=== PATIENT | male | born 1935 | race Caucasian/White ===

== ENCOUNTER 2018-11-04 15:50 | Inpatient (IN) ==
--- OUTSIDE RECORDS SUMMARY | 2018-11-04 15:53 | External Medical Summary | Continuity of Care Document ---
:1935 Author Name Gonzales Deleon Address Unavailable Unavailable , Care Team Providers Name Role Phone Anthony Deleon I. 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 Start: 27-Dec-2014 Quantity: 90 Refills: 3 Metoprolol Succinate ER 50 MG Oral Table t Extended Release 24 Hour; Take 1 tablet daily Start: 27-Dec-2014 Quantity: 90 Refills: 3 Diclofenac Sodium 75 MG Oral Tablet Irma yed Release; TAKE 1 TABLET Daily PRN with food Start: 27-Dec-2014 Refills: 0 ALPRAZolam 0.25 MG Oral Tablet; TAKE 1 TABLET 3 TIMES DAILY NEEDED. Start: 27-Dec-2014 Quantity: 90 Refills: 0 Aspirin 81 MG TABS; TAKE 1 TABLET DAILY. Start: 27-Dec-2014 Refills: 0 PreserVision AREDS Oral Capsule Start: 17-Dec-2014 Refills: 0 Multi-Vitamin TABS Refills: 0 Lotrimin 1 % CREA Refills: 0 Vitamin B6 TABS Refills: 0 Vitamin E TABS Refills: 0 TH Vitamin B12 TABS Refills: 0 Vitamin C TABS Refills: 0 Antacid CHEW Refills: 0 Mometasone Furoate 0.1 % External Cream Refills: 0 MiraLax Oral Powder Refills: 0 Senna 8.6 MG Oral Tablet Refills: 0 Pantoprazole Sodium 40 MG Oral Tablet Delayed Release Refills: 0 Procedures History of Colonoscopy (Fiberoptic) Stat us: Completed Immunizations Immunizations not documented Family History Mother Family history of CAD (coronary artery disease) (414.0 0) (I25.10) Status: Active Family history of arthritis (V17.7) (Z82.61) Status: Active Family history of cerebrovascular accident (V17.1) (Z82.3) S tatus: Active Father Family history of CAD (coronary artery disease) (414.0 0) (I25.10) Status: Active Sister Family history of arthritis (V17.7) (Z82.61) Status: Active Brother Family history of arthritis (V17.7) (Z82.61) Status: Active Social History - Smoking Status Former smoker Interventions Follow-ups/ReferralsFollow-up visit in 6 months; Done: 19 Oct 2015 Plan of Treatment Planned Observations Planned Goals not documented Results No Known Results Results not documented Encounters Appointment; Galindo Cruz M.D. 19-Oct-2015 12:45 Encounter Diagnosis: Problem not documented
[2018-11-04] MEDS ORDERED: SODIUM CHLORIDE 0.9% 500 ML IV SCH (16:30)
[2018-11-04 16:45] LABS: Basophils # (auto) 0.03 K/uL (0-0.2); Basophils % (auto) 0.4 %; Eosinophils # (auto) 0.51 K/uL (0-0.5); Eosinophils % (auto) 6.9 %; Hematocrit (blood only) 34.6 % (42-52); Hemoglobin 11.4 g/dL (14.0-18.0); Immature Granulocytes # (auto) 0.02 K/uL (0.00-0.02); Immature Granulocytes % (auto) 0.3 %; Lymphocytes # (auto) 0.93 K/uL (1.2-3.4); Lymphocytes % (auto) 12.5 %; Mean Corpuscular Hgb Conc 32.9 g/dL (32-36); Mean Corpuscular Volume 96.9 fL (80-100); Mean Platelet Volume 10.9 fL (7.4-10.4); Monocytes # (auto) 0.84 K/uL (0.11-0.59); Monocytes % (auto) 11.3 %; Neutrophils % (auto) 68.6 %; Platelet Count 216 K/uL (130-400); RDW Coefficient of Variation 13.5 % (11.5-14.5); RDW Standard Deviation 47.3 fL (36.4-46.3); Red Blood Count 3.57 M/uL (4.7-6.1); White Blood Count 7.43 K/uL (4.8-10.8)
--- NOTE | 2018-11-04 16:45 | XRay Report ---
XR chest 1V portable CLINICAL HISTORY: 83 years-old Male presenting with Chest Pain. TECHNIQUE: Portable upright AP view of the chest was obtained. COMPARISON: None. FINDINGS: Atherosclerosis of the aortic arch. Cardiac silhouette enlarged. Mild central pulmonary vascular prom inence. Elevation of the right hemidiaphragm. Mildly low lung volumes. No focal opacity. No large eff usion or pneumothorax. Degenerative changes of the thoracic spine. Osteopenia may be present. Upper a bdomen normal. IMPRESSION: 1. Cardiomegaly. No alexander volume overload or pulmonary edema. 2. Hilar vascular prominence versus, less likely, underlying lymphadenopathy. 3. Mildly low lung volumes with hypoventilatory changes. Electronically signed by: Cameron Navarro M.D. 11/04/2018 4:43 PM
--- NOTE | 2018-11-04 17:32 | Emergency Department Note ---
Entered by Ab Love acting as a scribe for Corbin Green MD History of Present Illness General Chief complaint: Weakness Stated complaint: MENTAL STATUS CHANGE Time Seen by Provider: 11/04/18 16:28 Source: family () History of Present Illness Onset (ago): day(s) 1 Location: head (confusion) Severity: severe and similar to prior episodes (prior UTI) Pain Consistency: + other (worsening) Associated symptoms: + weakness and + other (delusions, abdominal bloating) The patient is a 83 year old M who presents to the Emergency Room with complaints of worsening confusion that occurred 1 day ago. The HPI was provided by the patients . She states that the patient has a history of Parkinsons disease. She notes that recently the patient was diagnosed with a UTI by the patients PCP and was started on an antibiotic. She states that while the patient was on his antibiotic treatment, a urine test was done which was negative. She adds that the patient finished his course of antibiotics yesterday. She states that the patient is currently experiencing delusions, abdominal bloating, and weakness, which started a week ago. She adds that due to the patients Parkinsons disease, the patient normally uses a walker for movement. She states that the patient cannot walk on his own anymore. She notes that these symptoms usually occur when the patient has a UTI. She states that the patient has a neurologist back in [place]. She denies that the patient experienced any recent falls. Home Medications Home Medications Medication Instructions Recorded Confirmed Type alprazolam 0.25 mg PO TID 11/04/18 11/04/18 History amantadine HCl 100 mg PO BID 11/04/18 11/04/18 History amlodipine 10 mg PO QAM 11/04/18 11/04/18 History carbidopa-levodopa 1 tab PO BID 11/04/18 11/04/18 History carbidopa-levodopa 1 tab PO TID 11/04/18 11/04/18 History losartan 50 mg PO QAM 11/04/18 11/04/18 History Allergies Allergy/AdvReac Type Severity Reaction Status Date / Time No Known Allergies Allergy Unverified 11/04/18 17:15 Past Med/Surg History Medical History Parkinson's disease (Chronic) Macular degeneration (Chronic) Anxiety Arthritis HTN (hypertension) Family History Other No significant family history Social History Communication Ability: Impaired Consulting Senior Practice Director Required: No Beliefs That Will Affect Care: Catholic Catholic Beliefs: Buddhist Current Living Situation: Alone Other Information That Helps Us Care for You: No Feels Safe at Home: Yes Smoking Status: Former smoker Do You Dip or Chew Tobacco: No Smoking End Date: quit in 1960 Hx Alcohol Use: No Hx Substance Use: No Review of Systems See HPI for pertinent positives & negatives. and A total of 10 systems reviewed and were otherwise negative Physical Exam Vital Signs Vital Signs - 24 hr 11/04/18 15:55 11/04/18 17:36 Temperature 36.4 C L Temperature Source Oral Sepsis Recent Fever Within 48 Hours No Sepsis New/Unexplained Change in Mental Status No Sepsis Action Taken by Nursing No Action Required Pulse Rate 62 Pulse Rate [Right Finger] 64 Pulse Rhythm Regular Pulse Strength Normal Respiratory Rate 22 18 Respiratory Effort / Characteristics Non-Labored Respiratory Depth Normal Respiratory Pattern Regular Blood Pressure 154/59 H Blood Pressure [Left Arm] 164/71 H Blood Pressure Mean 90 Blood Pressure Mean [Left Arm] 102 Blood Pressure Position Lying Pulse Oximetry 94 98 Oxygen Delivery Method Room Air GENERAL: Awake, alert, chronically ill appearing HENT: Normocephalic, atraumatic. TM's normal. Oropharynx with dry mucous membranes and otherwise unremarkable. EYES: PERRL. EOMI. Normal conjunctiva. Sclera non-icteric. NECK: Supple. No nuchal rigidity. FROM. No JVD or bruit. RESPIRATORY: CTAB CARDIAC: RRR. ABDOMEN: Soft, non distended. No tenderness to palpation. No rebound or guarding. No masses. RECTAL: Deferred. MUSCULOSKELETAL: Unremarkable. No edema. No discoloration. Gross motor strength symmetric. NEURO: Normal sensorium. No sensory or motor deficits noted. Masked facies, slow motor movement but symmetric consistent with Parkinsons disease. SKIN: No rash or jaundice noted. LYMPH: No adenopathy Course 1643: The patient was evaluated in room B11B. A complete history and physical exam was performed. 1902: I talked with the patients . She is not aware of any prior history of prior kidney impairment. 1908: I reviewed the patient's case with Dr. James Giang, [facility] Hospitalist. He will evaluate the patient for further management. Consultations Consultation #1: I reviewed the patient's case with Dr. James Giang, [facility] Hospitalist. He will evaluate the patient for further management. Time: 19:09 Administered Medications Alprazolam (Xanax) 0.25 mg PO TID OSIEL Stop: 12/04/18 21:17 Last Admin: 11/04/18 21:58 Dose: 0.25 mg Documented by: [id number] Amantadine HCl (Symmetrel) 100 mg PO BID OSIEL Stop: 12/04/18 21:59 Last Admin: 11/04/18 22:08 Dose: 100 mg Documented by: [id number] Carbidopa/Levodopa (Sinement Cr 25/100mg) 1 tab PO HS OSIEL Stop: 12/04/18 22:29 Last Admin: 11/04/18 22:31 Dose: Not Given Documented by: [id number] Docusate Sodium (Colace) 100 mg PO BID OSIEL Stop: 12/04/18 21:17 Last Admin: 11/04/18 21:59 Dose: 100 mg Documented by: [id number] Heparin Sodium (Porcine) (Heparin Sodium (Porcine)) 5,000 units SQ Q12 OSIEL Stop: 12/04/18 21:59 Last Admin: 11/04/18 22:00 Dose: 5,000 units Documented by: [id number] Cosigned by: [id number] Polyethylene Glycol (Miralax Powder Packet) 17 gm PO DAILY OSIEL Stop: 12/04/18 21:17 Last Admin: 11/04/18 21:57 Dose: 17 gm Documented by: [id number] Discontinued Medications Carbidopa/Levodopa (Sinement Cr 25/100mg) 1 tab PO BID OSIEL Stop: 12/04/18 21:17 Last Admin: 11/04/18 21:59 Dose: 1 tab Documented by: [id number] Carbidopa/Levodopa (Sinemet 25/100 Mg) 1 tab PO TID OSIEL Stop: 12/04/18 21:17 Last Admin: 11/04/18 23:44 Dose: Not Given Documented by: [id number] Sodium Chloride (Nss) 500 mls @ 999 mls/hr IV .Q31M OSIEL Stop: 11/04/18 17:00 Last Infusion: 11/04/18 17:10 Dose: 0 mls/hr Documented by: [id number] Admin: 11/04/18 16:38 Dose: 999 mls/hr Documented by: [id number] Sodium Chloride (Nss) 500 mls @ 125 mls/hr IV .Q4H STA Stop: 11/04/18 23:49 Last Admin: 11/04/18 21:22 Dose: 125 mls/hr Documented by: [id number] Medical Decision Making Differential Diagnosis Differential diagnosis includes: metabolic, infection, hypo/hyperglycemia, electrolyte abnormalities, cardiac sources, intracerebral event, toxicologic, neurologic, as well as others were entertained. Medical Records Attestation: I reviewed the patient's medical records. Home Medications Current Medication List: was personally reviewed by me Laboratory Data Attestation: I reviewed the patient's lab results. Result diagrams: 11/04/18 16:33 11/04/18 17:11 Lab Results 11/04/18 11/04/18 11/04/18 Range/Units 16:33 17:11 17:11 WBC 7.43 (4.8-10.8) K/uL RBC 3.57 L (4.7-6.1) M/uL Hgb 11.4 L (14.0-18.0) g/dL Hct 34.6 L (42-52) % MCV 96.9 (80-100) fL MCH 31.9 (25-34) pg MCHC 32.9 (32-36) g/dL RDW Std Deviation 47.3 H (36.4-46.3) fL RDW Coeff of Alo 13.5 (11.5-14.5) % Plt Count 216 (130-400) K/uL MPV 10.9 H (7.4-10.4) fL Immature Gran % (Auto) 0.3 % Neut % (Auto) 68.6 % Lymph % (Auto) 12.5 % Harris % (Auto) 11.3 % Eos % (Auto) 6.9 % Baso % (Auto) 0.4 % Immature Gran # (Auto) 0.02 (0.00-0.02) K/uL Neut # (Auto) 5.10 (1.4-6.5) K/uL Lymph # (Auto) 0.93 L (1.2-3.4) K/uL Harris # (Auto) 0.84 H (0.11-0.59) K/uL Eos # (Auto) 0.51 H (0-0.5) K/uL Baso # (Auto) 0.03 (0-0.2) K/uL PT 10.9 (9.0-12.0) Seconds INR 1.1 (0.9-1.1) Sodium 140 (136-145) mmol/L Potassium 4.5 (3.5-5.1) mmol/L Chloride 108 H (98-107) mmol/L Carbon Dioxide 25 (21-32) mmol/L Anion Gap 7.0 (3-11) BUN 27 H (7-18) mg/dl Creatinine 1.88 H (0.6-1.4) mg/dl Est Cr Clr Drug Dosing 29.2 ml/min Est GFR ( Amer) 37.2 Est GFR (Non-Af Amer) 32.1 BUN/Creatinine Ratio 14.4 (10-20) Glucose 98 (70-99) mg/dl Calcium 9.3 (8.5-10.1) mg/dl Phosphorus 2.9 (2.5-4.9) mg/dl Magnesium 2.4 (1.8-2.4) mg/dl Total Bilirubin 0.6 (0.2-1) mg/dl Direct Bilirubin 0.1 (0-0.2) mg/dl AST 17 (15-37) U/L ALT 12 (12-78) U/L Alkaline Phosphatase 95 (45-117) U/L Troponin I 0.017 (0-0.045) ng/ml Total Protein 8.0 (6.4-8.2) gm/dl Albumin 3.9 (3.4-5.0) gm/dl Globulin 4.1 H (2.5-4.0) gm/dl Albumin/Globulin Ratio 1.0 (0.9-2) Lipase 225 (73-393) U/L TSH 1.750 (0.300-4.500) uIu/ml Urine Color Urine Appearance (Clear) Urine pH (4.5-7.5) Ur Specific [place] (1.000-1.030) Urine Protein (Negative) Urine Glucose (UA) (Negative) Urine Ketones (Negative) Urine Blood (Negative) Urine Nitrite (Negative) Urine Bilirubin (Negative) Urine Urobilinogen (Negative) Ur Leukocyte Esterase (Negative) 11/04/18 Range/Units 17:30 WBC (4.8-10.8) K/uL RBC (4.7-6.1) M/uL Hgb (14.0-18.0) g/dL Hct (42-52) % MCV (80-100) fL MCH (25-34) pg MCHC (32-36) g/dL RDW Std Deviation (36.4-46.3) fL RDW Coeff of Alo (11.5-14.5) % Plt Count (130-400) K/uL MPV (7.4-10.4) fL Immature Gran % (Auto) % Neut % (Auto) % Lymph % (Auto) % Harris % (Auto) % Eos % (Auto) % Baso % (Auto) % Immature Gran # (Auto) (0.00-0.02) K/uL Neut # (Auto) (1.4-6.5) K/uL Lymph # (Auto) (1.2-3.4) K/uL Harris # (Auto) (0.11-0.59) K/uL Eos # (Auto) (0-0.5) K/uL Baso # (Auto) (0-0.2) K/uL PT (9.0-12.0) Seconds INR (0.9-1.1) Sodium (136-145) mmol/L Potassium (3.5-5.1) mmol/L Chloride (98-107) mmol/L Carbon Dioxide (21-32) mmol/L Anion Gap (3-11) BUN (7-18) mg/dl Creatinine (0.6-1.4) mg/dl Est Cr Clr Drug Dosing ml/min Est GFR ( Amer) Est GFR (Non-Af Amer) BUN/Creatinine Ratio (10-20) Glucose (70-99) mg/dl Calcium (8.5-10.1) mg/dl Phosphorus (2.5-4.9) mg/dl Magnesium (1.8-2.4) mg/dl Total Bilirubin (0.2-1) mg/dl Direct Bilirubin (0-0.2) mg/dl AST (15-37) U/L ALT (12-78) U/L Alkaline Phosphatase (45-117) U/L Troponin I (0-0.045) ng/ml Total Protein (6.4-8.2) gm/dl Albumin (3.4-5.0) gm/dl Globulin (2.5-4.0) gm/dl Albumin/Globulin Ratio (0.9-2) Lipase (73-393) U/L TSH (0.300-4.500) uIu/ml Urine Color Yellow Urine Appearance Clear (Clear) Urine pH 6.5 (4.5-7.5) Ur Specific [place] 1.012 (1.000-1.030) Urine Protein Negative (Negative) Urine Glucose (UA) Negative (Negative) Urine Ketones Negative (Negative) Urine Blood Negative (Negative) Urine Nitrite Negative (Negative) Urine Bilirubin Negative (Negative) Urine Urobilinogen Negative (Negative) Ur Leukocyte Esterase Negative (Negative) Imaging Data Radiologist's Impression: Radiology results as stated below per my review and the radiologist's interpretation: XR chest 1V portable CLINICAL HISTORY: 83 years-old Male presenting with Chest Pain. TECHNIQUE: Portable upright AP view of the chest was obtained. COMPARISON: None. FINDINGS: Atherosclerosis of the aortic arch. Cardiac silhouette enlarged. Mild central pulmonary vascular prominence. Elevation of the right hemidiaphragm. Mildly low lung volumes. No focal opacity. No large effusion or pneumothorax. Degenerative changes of the thoracic spine. Osteopenia may be present. Upper abdomen normal. IMPRESSION: 1. Cardiomegaly. No alexander volume overload or pulmonary edema. 2. Hilar vascular prominence versus, less likely, underlying lymphadenopathy. 3. Mildly low lung volumes with hypoventilatory changes. Electronically signed by: Cameron Navarro M.D. 11/04/2018 4:43 PM XR KUB/Abdomen 1 view CLINICAL HISTORY: 83 years-old Male presenting with weakness, abdominal distension. TECHNIQUE: Single supine view of the abdomen was obtained. COMPARISON: None. FINDINGS: Moderate stool burden throughout the colon primarily in the right colon. Nonobstructive bowel gas pattern. No gross pneumoperitoneum. Calcifications project over the right mid abdomen, indeterminate in morphology. Atherosclerotic calcifications. Few pelvic phleboliths. Degenerative changes of the spine. Osteopenia. Intramedullary nail fixation of the left femoral neck and proximal metadiaphysis. Significant posttraumatic deformity remains. IMPRESSION: 1. Moderate stool burden may suggest constipation. No bowel obstruction. 2. Significant posttraumatic deformity of the left femur status post internal fixation. Electronically signed by: Cameron Navarro M.D. 11/04/2018 5:55 PM ECG Data Attestation: I personally reviewed and interpreted this ECG as follows: Indication: weakness Rate (beats per minute): 62 Rhythm: normal sinus Findings: + other (normal axis); no acute ischemic change Blood Pressure Blood Pressure Findings: Elevated blood pressure Blood Pressure Disposition: further management by hospitalist MDM Narrative The patient is a pleasant 83-year-old gentleman with a past medical history of Parkinson's disease who presents to emergency department with generalized weakness and waxing and waning confusion in setting of recently being treated for a urinary tract infection per hpi. Family reports that his weakness has become so bad that he is unable to even stand up. His baseline status is being able to ambulate with a walker with close supervision. On arrival patient is chronically ill-appearing but no acute distress, afebrile stable vital signs. Patient appears clinically dry. He is moving all extremities equally with slow motor movements that is typical for the patient's Parkinson's. EKG without overt acute ischemia. Chest x-ray negative for focal infiltrate. KUB with evidence of constipation. WBC within normal limits. H/H 11.4/34.6 without recent values for comparison. Platelets is within normal limits. Chemistry without acidosis. Creatinine 1.8 which is similar to prior value 2 years ago however the patient's denies any known history of chronic renal insufficiency. Therefore it is presumed that this is likely an acute kidney injury likely contributing to the patient's weakness and intermittent confusion in the setting of his Parkinson disease. LFTs and electrolytes otherwise unremarkable. Troponin within normal limits. UA negative for infection. CT head negative for acute process. This was discussed with Dr. Giang, [facility] h ospitalist, who will evaluate the patient for admission further management of the patient's acute kidney injury/dehydration. Impression & Plan Acute kidney injury, Dehydration, Generalized weakness Discharge Plan Visit Data *Final* Discharge Date/Time: 11/04/18 20:45 Chief Complaint: Weakness Stated Complaint: MENTAL STATUS CHANGE ED Provider: Corbin Green Discharge Problem: Acute kidney injury, Dehydration, Generalized weakness Patient Disposition: Admitted As Inpatient Discharge Instructions Interventions: ED Discharge Assessment Last Done: 11/04/18 20:45 The scribe's documentation has been prepared under my direction and personally reviewed by me in its entirety. I confirm that the note above accurately reflects all work, treatment, procedures, and medical decision making performed by me.
[2018-11-04 17:43] LABS: INR 1.1 (0.9-1.1); Prothrombin Time 10.9 Seconds (9.0-12.0)
[2018-11-04 17:51] LABS: Albumin Level 3.9 gm/dl (3.4-5.0); BUN Creatinine Ratio 14.4 (10-20); Bilirubin Direct 0.1 mg/dl (0-0.2); Calcium 9.3 mg/dl (8.5-10.1); Creatinine Clr Calc Pharmacy 29.2 ml/min; Est GFR (African American) 37.2; Est GFR (Non-African American) 32.1; Magnesium 2.4 mg/dl (1.8-2.4); Potassium 4.5 mmol/L (3.5-5.1)
--- NOTE | 2018-11-04 17:56 | XRay Report ---
XR KUB/Abdomen 1 view CLINICAL HISTORY: 83 years-old Male presenting with weakness, abdominal distension. TECHNIQUE: Single supine view of the abdomen was obtained. COMPARISON: None. FINDINGS: Moderate stool burden throughout the colon primarily in the right colon. Nonobstructive bowel gas pat tern. No gross pneumoperitoneum. Calcifications project over the right mid abdomen, indeterminate in morphology. Atherosclerotic calci fications. Few pelvic phleboliths. Degenerative changes of the spine. Osteopenia. Intramedullary nail fixation of the left femoral neck and proximal metadiaphysis. Significant posttraumatic deformity remains. IMPRESSION: 1. Moderate stool burden may suggest constipation. No bowel obstruction. 2. Significant posttraumatic deformity of the left femur status post internal fixation. Electronically signed by: Cameron Navarro M.D. 11/04/2018 5:55 PM
[2018-11-04 18:00] LABS: Bilirubin,Total 0.6 mg/dl (0.2-1); Globulin 4.1 gm/dl (2.5-4.0); Phosphorus 2.9 mg/dl (2.5-4.9); Troponin I 0.017 ng/ml (0-0.045)
[2018-11-04 18:12] LABS: Appearance Urine Clear (Clear); Bilirubin Urine Negative (Negative); Blood Urine Negative (Negative); Color Urine Yellow; Glucose Urine UA Negative (Negative); Ketones Urine Negative (Negative); Leukocyte Esterase Urine Negative (Negative); Nitrite Urine Negative (Negative); Protein Urine Negative (Negative); Specific Gravity Urine 1.012 (1.000-1.030); Urobilinogen Urine Negative (Negative); pH Urine 6.5 (4.5-7.5)
--- NOTE | 2018-11-04 19:29 | CT Scan Report ---
CT OF THE HEAD WITHOUT CONTRAST CLINICAL HISTORY: weakness COMPARISON STUDY: No previous studies for comparison. CT DOSE: 614.27 mGy.cm TECHNIQUE: Helical axial images of the head were obtained without IV contrast. Automated exposure con trol was utilized for the study. A dose lowering technique was utilized adhering to the principles o f ALARA. FINDINGS: No acute intracranial hemorrhage, midline shift or mass effect is present. Ventricular syst em is normal for age. Basilar cisterns are patent. There are no extra-axial collections. White matter hypodensity suggests small vessel disease. There is moderate atrophy. There are no findings to sugge st acute dural sinus thrombosis or acute territorial infarct. There are are a few suspected mucous re tention cyst within the sinuses. There are no significant calvarial abnormalities. IMPRESSION: No acute intracranial findings. Electronically signed by: Pawan Vega M.D. 11/04/2018 7:28 PM
[2018-11-04] MEDS ORDERED: SODIUM CHLORIDE 0.9% 500 ML IV STA (19:50)
--- NOTE | 2018-11-04 19:50 | History & Physical Report ---
Date of Service November 04, 2018 Assessment & Plan (1) Acute kidney injury: (2) Generalized weakness: 83-year-old male with history of advanced Parkinson's disease, macular degeneration, hypertension, TIAs presents with progressive weakness x2 months worse in the past 3 days. Generalized weakness Likely secondary to progressive Parkinson's disease versus deconditioning from recent UTIs No white blood cell count, afebrile CT head: No acute intracranial abnormality CXR: Cardiomegaly. No alexander volume overload or pulmonary edema. Hilar vascular prominence versus, less likely, underlying lymphadenopathy. Mildly low lung volumes with hypoventilatory changes EK normal sinus rhythm QTc 422 Troponin negative Electrolytes wnl, LFT and lipase wnl TSH 1.75 Neurology consulted PT/OT ordered Discharge planning for potential rehab consideration History of recent UTIs No WBC, afebrile UA negative Urine culture ordered MARCELO likely secondary to dehydration BUN/creatinine 27/1.8, noted to be 2.2 in 2016 GFR 32, no known history of chronic kidney disease Received 500 cc NS On NS 125 cc/h Constipation KUB: Moderate stool burden may suggest constipation. No bowel obstruction Started on Colace and MiraLAX scheduled Hypertension Continue home amlodipine and losartan Advanced Parkinson's disease Continue home amantadine and carbidopa levodopa Continue home alprazolam DVT prophylaxis: Heparin 5000u SQ every 12 Code: Full per discussion with , POA Dispo: MedSurg with telemetry (3) Parkinson's disease: (4) Macular degeneration: (5) Hypertension: (6) TIA (transient ischemic attack): History of Present Illness Chief Complaint: Weakness Primary Care Provider: Aurelio Bryant 83-year-old male with history of advanced Parkinson's disease, macular degeneration, hypertension, TIAs presents with progressive weakness x2 months worse in the past 3 days. Patient is unable to communicate. Per his neurologist 2 months ago did an MRI and told them he has stage IV or V advanced Parkinson's disease. He then had a UTI 2 months ago and again 2 weeks ago which exacerbated his weakness. Recently he has required more care at home to get out of bed and is requiring a walker to ambulate. His shakiness is also worse and he is noted to be hallucinating/delusional per CONTENT DEVELOPMENT MANAGER and . He has a physician podiatrist assistant as PCP who comes to his home to see him in addition to OT, PT, and CONTENT DEVELOPMENT MANAGER help. He was treated with antibiotics for his most recent UTI but according to was getting worse the past 3 days so she brought him to the hospital. Past medical history: advanced Parkinson's disease, hypertension, TIAs Past surgical history: left femur internal fixation, multiple oral surgeries Social history: Smoked 2 packs a day for 5 years but quit in 1960, used to be a social drinker, no recreational drug use, lives with and has multiple caregivers Family history: Mother had brain aneurysm and of stroke, father had [place] and Parkinson's, 2 brothers had MIs and Parkinson as well Allergies Allergy/AdvReac Type Severity Reaction Status Date / Time No Known Allergies Allergy Unverified 11/04/18 17:15 Home Medications Home Medications Medication Instructions Recorded Confirmed Type alprazolam 0.25 mg PO TID 11/04/18 11/04/18 History amantadine HCl 100 mg PO BID 11/04/18 11/04/18 History amlodipine 10 mg PO QAM 11/04/18 11/04/18 History carbidopa-levodopa 1 tab PO BID 11/04/18 11/04/18 History carbidopa-levodopa 1 tab PO TID 11/04/18 11/04/18 History losartan 50 mg PO QAM 11/04/18 11/04/18 History Past Med/Surg History Medical History Parkinson's disease (Chronic) Macular degeneration (Chronic) Anxiety Arthritis HTN (hypertension) Family History Other No significant family history Social History Communication Ability: Impaired Vibration Technician Required: No Beliefs That Will Affect Care: Sabianist Sabianist Beliefs: Latter-Day Current Living Situation: Alone Other Information That Helps Us Care for You: No Feels Safe at Home: Yes Smoking Status: Former smoker Do You Dip or Chew Tobacco: No Smoking End Date: quit in 1960 Hx Alcohol Use: No Hx Substance Use: No Review of Systems Review of Systems: Limited due to patient's inability to communicate Physical Exam Physical Exam: General: In no acute distress, attempts to communicate but difficult to understand Neuro: Alert, exhibits tremors, rigidity, and bradykinesia throughout, CN II to XII intact, strength 5/5 bilateral upper extremities, strength 4/5 bilateral lower extremities, pronator drift negative Pulm: Chest clear to auscultation bilaterally, equal breath sounds bilaterally CV: RRR, no M/R/G Abdomen: Positive bowel sounds nontender to palpation in all quadrants, nondistended LE: No calf tenderness to palpation, no lower extremity edema Results & Data Vital Signs (Past 12 Hours) Vital Signs Temp Pulse Pulse Resp BP BP Pulse Ox 11/04/18 17:36 64 18 164/71 H 98 11/04/18 15:55 36.4 C L 62 22 154/59 H 94 Laboratory Results Abnormal lab results 11/04/18 11/04/18 Range/Units 16:33 17:11 RBC 3.57 L (4.7-6.1) M/uL Hgb 11.4 L (14.0-18.0) g/dL Hct 34.6 L (42-52) % RDW Std Deviation 47.3 H (36.4-46.3) fL MPV 10.9 H (7.4-10.4) fL Lymph # (Auto) 0.93 L (1.2-3.4) K/uL [place] # (Auto) 0.84 H (0.11-0.59) K/uL Eos # (Auto) 0.51 H (0-0.5) K/uL Chloride 108 H (98-107) mmol/L BUN 27 H (7-18) mg/dl Creatinine 1.88 H (0.6-1.4) mg/dl Globulin 4.1 H (2.5-4.0) gm/dl Diagnostic Findings CT OF THE HEAD WITHOUT CONTRAST CLINICAL HISTORY: weakness COMPARISON STUDY: No previous studies for comparison. CT DOSE: 614.27 mGy.cm TECHNIQUE: Helical axial images of the head were obtained without IV contrast. Automated exposure control was utilized for the study. A dose lowering technique was utilized adhering to the principles of ALARA. FINDINGS: No acute intracranial hemorrhage, midline shift or mass effect is present. Ventricular system is normal for age. Basilar cisterns are patent. There are no extra-axial collections. White matter hypodensity suggests small vessel disease. There is moderate atrophy. There are no findings to suggest acute dural sinus thrombosis or acute territorial infarct. There are are a few suspected mucous retention cyst within the sinuses. There are no significant calvarial abnormalities. IMPRESSION: No acute intracranial findings. XR KUB/Abdomen 1 view CLINICAL HISTORY: 83 years-old Male presenting with weakness, abdominal distension. TECHNIQUE: Single supine view of the abdomen was obtained. COMPARISON: None. FINDINGS: Moderate stool burden throughout the colon primarily in the right colon. Nonobstructive bowel gas pattern. No gross pneumoperitoneum. Calcifications project over the right mid abdomen, indeterminate in morphology. Atherosclerotic calcifications. Few pelvic phleboliths. Degenerative changes of the spine. Osteopenia. Intramedullary nail fixation of the left femoral neck and proximal metadiaphysis. Significant posttraumatic deformity remains. IMPRESSION: 1. Moderate stool burden may suggest constipation. No bowel obstruction. 2. Significant posttraumatic deformity of the left femur status post internal fixation. XR chest 1V portable CLINICAL HISTORY: 83 years-old Male presenting with Chest Pain. TECHNIQUE: Portable upright AP view of the chest was obtained. COMPARISON: None. FINDINGS: Atherosclerosis of the aortic arch. Cardiac silhouette enlarged. Mild central pulmonary vascular prominence. Elevation of the right hemidiaphragm. Mildly low lung volumes. No focal opacity. No large effusion or pneumothorax. Degenerative changes of the thoracic spine. Osteopenia may be present. Upper abdomen normal. IMPRESSION: 1. Cardiomegaly. No alexander volume overload or pulmonary edema. 2. Hilar vascular prominence versus, less likely, underlying lymphadenopathy. 3. Mildly low lung volumes with hypoventilatory changes. Medications Administered Current Inpatient Medications Sodium Chloride (Nss) 500 mls @ 125 mls/hr IV .Q4H STA Stop: 11/04/18 23:49 Code Status & VTE Plan Code Status Full VTE Prophylaxis Plan VTE Prophylaxis will be ordered: Yes Supervising Physician Co-Signing Physician Notes Pt seen/examined in conjunction with resident MD Meghan Ross. Orders and plan of admission formulated with resident. 83 y/o M Hx advanced Parkinson's disease, HTN, TIAs presents with progressive weakness, confusion, tremors, inability to consistently communicate x2 months. Per his , there has been functional decline for longer that this, however, he has had 2 UTI in the past 2 months which seemed to have accelerated the p rocess. He had visited his neurologist 2 months ago and had an MRI which was consistent with advanced Parkinson's disease. She was told that the prognosis might be poor. The pt has multiple care givers at home but they cannot currently take care of him as he is unable to even sit up without assistance, OE: Disoriented, elderly male - speaks on occasion althoug voice is weak and he may be slightly off topic. S1,2 R CTAB NT, ND No CCE Rigidity and severe ataxia is readily apparent P: It is not clear if the pt can full recover as his current condition has been more or less persistent for two months. There is no evidence of infection presently, although we will culture his urine consideing two recen UTIs Neurology will be consulted to review his medications. PT/OT requested. Dispo TBD based on AM reassessment post IVF and definitive r/o of infection. PG Care Time/CCT Total # of Minutes Spent Total Time Spent with Patient: Total time spent is greater than 50% in coordination of care (as documented) at patient's floor/unit and/or counseling patient: Resident Activity Tracking Resident Involvement: Resident Care Provided Care Provided: Adult Hospital Medicine
[2018-11-04] MEDS ORDERED: CARBIDOPA/LEVODOPA 25/100MG TAB PO SCH (21:18)
[2018-11-04] MEDS ORDERED: ACETAMINOPHEN 325 MG TAB PO PRN (21:18)
[2018-11-04] MEDS ORDERED: CARBIDOPA/LEVODOPA 25/100MG EXT REL TAB PO SCH (21:18)
[2018-11-04] MEDS: POLYETHYLENE (MIRALAX) 17 GM PACK PO SCH (21:57)
[2018-11-04] MEDS: ALPRAZolam 0.25 MG TABLET PO SCH (21:58)
[2018-11-04] MEDS: DOCUSATE SODIUM 100 MG CAP PO SCH (21:59)
[2018-11-04] MEDS: HEPARIN SOD 5,000 UNIT/0.5 ML VIAL SQ SCH (22:00)
[2018-11-04] MEDS: AMANTADINE HCL 100 MG CAPSULE PO SCH (22:08)
[2018-11-04] MEDS: CARBIDOPA/LEVODOPA 25/100MG EXT REL TAB PO SCH (22:31)
[2018-11-05 05:48] LABS: Basophils # (auto) 0.02 K/uL (0-0.2); Basophils % (auto) 0.2 %; Eosinophils # (auto) 0.48 K/uL (0-0.5); Eosinophils % (auto) 4.9 %; Hematocrit (blood only) 37.5 % (42-52); Hemoglobin 12.5 g/dL (14.0-18.0); Immature Granulocytes # (auto) 0.02 K/uL (0.00-0.02); Immature Granulocytes % (auto) 0.2 %; Lymphocytes # (auto) 1.76 K/uL (1.2-3.4); Lymphocytes % (auto) 18.1 %; Mean Corpuscular Hgb Conc 33.3 g/dL (32-36); Mean Corpuscular Volume 95.7 fL (80-100); Mean Platelet Volume 9.2 fL (7.4-10.4); Monocytes # (auto) 0.85 K/uL (0.11-0.59); Monocytes % (auto) 8.7 %; Neutrophils # (auto) 6.61 K/uL (1.4-6.5); Neutrophils % (auto) 67.9 %; Platelet Count 239 K/uL (130-400); RDW Coefficient of Variation 13.2 % (11.5-14.5); Red Blood Count 3.92 M/uL (4.7-6.1); White Blood Count 9.74 K/uL (4.8-10.8)
[2018-11-05 06:25] LABS: BUN Creatinine Ratio 15.3 (10-20); Calcium 9.4 mg/dl (8.5-10.1); Creatinine Clr Calc Pharmacy 38.7 ml/min; Est GFR (African American) 52.2; Potassium 4.1 mmol/L (3.5-5.1)
[2018-11-05] MEDS ORDERED: CARBIDOPA/LEVODOPA 25/100MG TAB PO SCH (08:00)
[2018-11-05] MEDS: ALPRAZolam 0.25 MG TABLET PO SCH ×3 (08:17→21:43)
[2018-11-05] MEDS: CARBIDOPA/LEVODOPA 25/100MG TAB PO SCH ×4 (08:17→19:04)
[2018-11-05] MEDS: AMANTADINE HCL 100 MG CAPSULE PO SCH ×2 (08:18→21:40)
[2018-11-05] MEDS: LOSARTAN POTASSIUM 50 MG TAB PO SCH (08:18)
[2018-11-05] MEDS: DOCUSATE SODIUM 100 MG CAP PO SCH ×2 (08:19→21:39)
[2018-11-05] MEDS: HEPARIN SOD 5,000 UNIT/0.5 ML VIAL SQ SCH ×2 (08:19→21:40)
[2018-11-05] MEDS: AMLODIPINE BESYLATE 5 MG TAB PO SCH (08:19)
[2018-11-05] MEDS: POLYETHYLENE (MIRALAX) 17 GM PACK PO SCH (08:19)
--- NOTE | 2018-11-05 09:37 | Neurology Consultation ---
Date of Consultation November 05, 2018 Assessment & Plan (1) Parkinson's disease: This patient was diagnosed with Parkinson's disease approximately 10 years ago. His condition has been progressive and complicated by significant gait and postural instability resulting in a fall last year complicated by a left hip fracture. To some degree, his current decline is probably related to dehydration, acute kidney injury, and a recent urinary tract infection. He does endorse some symptoms suggestive of Parkinson's associated hallucinations/delusions. However, his behavior seems to be appropriate currently. I would not make any changes in his Parkinson's disease management at this time and he should continue with his outpatient regimen of Sinemet and amantadine. According to the home medication list it appears as if this patient was taking Sinemet CR 25/100 mg twice daily, regular release Sinemet 25/100 mg 3 times daily, and amantadine 100 mg twice daily. Assuming this information is correct, I would probably continue with his usual outpatient regimen rather than making any changes during this hospitalization. Larger dosages of Sinemet are not likely to improve his gait and postural instability and would have the potential to aggravate delusions, Parkinson's associated hallucinations, and orthostatic dizziness. He will probably benefit from physical therapy. As an outpatient he may benefit from starting Nuplazid to address Parkinson's associated hallucinations and delusions. This medication does require a bit of administrative work for authorization purposes. No further immediate recommendations. Please contact me if I may be of further assistance. History of Present Illness Reason for Consultation: Weakness, history of Parkinson's disease Requesting Physician: Manpreet Ross MD Attending Physician: Charlie Mckenzie MD History of Present Illness The patient is an 83-year-old male with a chief complaint of progressive generalized weakness in the context of Parkinson's disease and recent outpatient treatment for a urinary tract infection. His Parkinson's disease was diagnosed 10 years ago by his neurologist in [place]. He did see brandon Serrano, one time for an assessment of his Parkinson's in 2014. His Parkinson's has been characterized by a right upper extremity resting tremor and rigidity that has become progressively worse and generalized over many years and further complicated by significant gait and postural instability. He had a fall last year while in [place] fracturing his left hip which required surgical fixation. He uses a walker for ambulation at baseline. He does complain of some postural dizziness, nightmares, and admits that he may be seeing things such as people in the environment that he admits are probably not there. He also admits that his memory is not very good and he has some difficulty relating specifics regarding his history of present illness. Looks like he has been taking both extended release and instant release Sinemet and amantadine for management of his Parkinson's motor symptoms. He does not really complain of wearing off or motor fluctuations but does indicate that he feels as if his medication does not seem to be working very well recently. He was admitted to the [facility] with a diagnosis of acute kidney injury related to dehydration and generalized weakness related to his Parkinson's disease, but probably complicated by recent medical factors. Allergies Allergy/AdvReac Type Severity Reaction Status Date / Time No Known Allergies Allergy Unverified 11/04/18 17:15 Home Medications Home Medications Medication Instructions Recorded Confirmed Type alprazolam 0.25 mg PO TID 11/04/18 11/04/18 History amantadine HCl 100 mg PO BID 11/04/18 11/04/18 History amlodipine 10 mg PO QAM 11/04/18 11/04/18 History carbidopa-levodopa 1 tab PO BID 11/04/18 11/04/18 History carbidopa-levodopa 1 tab PO TID 11/04/18 11/04/18 History losartan 50 mg PO QAM 11/04/18 11/04/18 History Patient History Medical History Parkinson's disease (Chronic) Macular degeneration (Chronic) Anxiety Arthritis HTN (hypertension) Family History Other No significant family history Social History Communication Ability: Impaired Wearing Apparel Presser Required: No Beliefs That Will Affect Care: Orthodoxy Orthodoxy Beliefs: Restoration Current Living Situation: Alone Other Information That Helps Us Care for You: No Feels Safe at Home: Yes Smoking Status: Former smoker Do You Dip or Chew Tobacco: No Smoking End Date: quit in 1960 Hx Alcohol Use: No Hx Substance Use: No Review of Systems Constitutional: + weakness; no fever Eyes: no blind spots and no diplopia Ear, Nose, Mouth, Throat: no ear pain and no hearing loss Respiratory: no cough and no dyspnea Cardiovascular: no chest pain and no palpitations Gastrointestinal: + constipation Genitourinary: no dysuria Musculoskeletal: no myalgia Integumentary: no rash and no lesions Neurologic: as per Subjective / HPI, + unsteadiness, + falls, + generalized weakness, + tremor(s) and + dizziness Psychiatric: as per Subjective / HPI; no depression and no anxiety Hematologic / Lymphatic: no easy bleeding Physical Exam Physical Exam: The patient is a well-developed elderly male. He is alert and oriented to person only. Recent memory impaired. Remote memory intact. Attention normal. Concentration mildly impaired. Patient is able to name objects and repeat phrases. Speech is hypophonic. Patient exhibits an age- appropriate fund of knowledge and normal comprehension of vocabulary. Visual canseco full to confrontation. Visual acuity normal. Pupils equal round react to light and accommodation. Eye movements normal. Facial sensation normal. There is no facial droop or weakness. Hearing intact. Palate elevates to midline. Shoulder shrug intact. Tongue protrudes to midline. Sensation intact to all modalities in all 4 limbs. Deep tendon reflexes are intact and symmetrical. Plantar responses upgoing bilaterally. There is no dysdiad ochokinesia. There is mild dysmetria with [id number] and [id number] bilaterally. Ophthalmoscopic examination reveals normal-appearing optic disks and posterior segments. No papilledema or hemorrhages. Carotid pulses normal bilaterally, no bruits to auscultation. Gait and station not tested due to safety concerns. Patient exhibits normal muscle strength for all 4 limbs proximally and distally. However, he is unable to provide a full sustained effort with strength testing of the legs, he does seem to have a bit more difficulty with the left leg which she relates is due to his history of hip fracture and surgery. Patient exhibits bilateral upper extremity cogwheel rigidity, perhaps a bit greater on the right. There is no focal atrophy. Patient exhibits an intermittent upper extremity resting tremor, right greater than left. Results & Data Vital Signs (Past 12 Hours) Vital Signs Temp Pulse Pulse Resp BP BP Pulse Ox 11/05/18 07:35 36.6 C 70 20 159/74 H 96 11/05/18 07:01 69 11/05/18 04:14 36.6 C 63 20 156/65 H 11/04/18 23:00 36.6 C 65 18 153/65 H 95 11/04/18 21:41 70 11/04/18 21:37 36.7 C 65 18 165/70 H 97 Laboratory Results Recent labs reviewed. WBC 9.74, hemoglobin 12.5, hematocrit 37.5, platelet count 239, sodium 143, potassium 4.1, BUN 22, creatinine 1.42, glucose 89, calcium 9.4, transaminases normal, troponin normal, albumin 3.9, TSH normal, urinalysis negative Diagnostic Findings A CT of the head completed yesterday revealed moderate generalized atrophy, a few scattered chronic lacunar infarcts, and chronic small vessel ischemic change. No hemorrhage or acute process. No hydrocephalus. Images and report reviewed. Electrocardiogram revealed normal sinus rhythm, 62 bpm.
--- NOTE | 2018-11-05 19:13 | Hospitalist Progress Note ---
Date of Service November 05, 2018 Assessment & Plan (1) Acute kidney injury: improving s/p fluids. repeat BMP am. appetite improved today. was likely 2nd to volume depletion. Present on Admission?: Yes (2) Generalized weakness: acute - 2nd to UTI. chronic weakness - 2nd to advanced PD. check B12 level am. TSH wnl. PT,OT. CT head noted to be negative. Present on Admission?: Yes (3) Parkinson's disease: advanced, dx 8 years ago in [place]. appreciate neurology consultation by Dr Hayward. no change in medications at this time. PT,OT. treat other comorbidities. Present on Admission?: Yes (4) Macular degeneration: noted (5) Hypertension: controlled continue home meds Present on Admission?: Yes (6) TIA (transient ischemic attack): noted surprised he is not on asa for secondary prevention will inquire with about this issue Present on Admission?: No (7) Constipation: miralax may need stimulant as well (senna) Present on Admission?: Yes (8) UTI (urinary tract infection): recent, treated pre-hospital u/a pristine --- thus resolved (9) Hallucinations: reported by . had these at home last few months. likely related to advanced PD. none noted by staff. if these become an issue could consider low-dose seroquel or something similar. (10) DVT prophylaxis: heparin 5000 BID reviewed PT/OT notes max assist for activities SNF placement? home an option but needs 24/7 care Subjective 2 visits to pt's room today. first visit patient was alone. he awoke to his name being called but it was very difficult to understand anything he was saying. I could not get any meaningful history or ROS from him. 2nd visit was at bedside. she said it has been very difficult at home the last 2 months at home. overall physically and mentally he has declined. walking just a few feet at home has been extremely challenging. has hired private caregivers to help her. she said "I'll do whatever it takes to help him" but she is not "thrilled" about putting him in a SNF. last SNF stay was in [place] (they typically winter there every year). Review of Systems Review of Systems: Unobtainable due to cognitive status Physical Exam Constitutional: no acute distress tremors noted, speech difficult to understand ENMT: external ear and nose normal, oropharynx normal Respiratory: normal respiratory effort, lungs clear to auscultation Cardiovascular: Rate/Rhythm: regular rate and regular rhythm Heart Sounds: normal S1 and normal S2; no murmur Vessels: posterior tibial pulses present and dorsalis pedis pulses present; no JVD Extremities: no edema Gastrointestinal (Abdomen): normal bowel sounds, soft, nontender, no hepatosplenomegaly Neurologic: tremors, severe rigidity of all limbs Psychiatric: Orientation: alert; + not oriented x 3 Results & Data Vital Signs (Past 12 Hours) Vital Signs Temp Pulse Pulse Resp BP BP Pulse Ox 11/05/18 16:00 61 11/05/18 15:11 36.6 C 59 L 20 127/66 92 11/05/18 11:43 97 11/05/18 11:28 36.2 C L 67 20 136/71 11/05/18 07:35 36.6 C 70 20 159/74 H 96 Laboratory Results Laboratory Results - last 24 hr 11/05/18 11/05/18 05:40 05:40 WBC 9.74 RBC 3.92 L Hgb 12.5 L Hct 37.5 L MCV 95.7 MCH 31.9 MCHC 33.3 RDW Std Deviation 46.0 RDW Coeff of Alo 13.2 Plt Count 239 MPV 9.2 Immature Gran % (Auto) 0.2 Neut % (Auto) 67.9 Lymph % (Auto) 18.1 [place] % (Auto) 8.7 Eos % (Auto) 4.9 Baso % (Auto) 0.2 Immature Gran # (Auto) 0.02 Neut # (Auto) 6.61 H Lymph # (Auto) 1.76 [place] # (Auto) 0.85 H Eos # (Auto) 0.48 Baso # (Auto) 0.02 Sodium 143 Potassium 4.1 Chloride 110 H Carbon Dioxide 23 Anion Gap 9.0 BUN 22 H Creatinine 1.42 H D Est Cr Clr Drug Dosing 38.7 Est GFR ( Amer) 52.2 Est GFR (Non-Af Amer) 45.0 BUN/Creatinine Ratio 15.3 Glucose 89 Calcium 9.4 PG Care Time/CCT Total # of Minutes Spent Total Time Spent with Patient: Total time spent is greater than 50% in coordination of care (as documented) at patient's floor/unit and/or counseling patient: (1) Hypertension Hypertension type: essential hypertension Qualified Code(s): I10 - Essential (primary) hypertension (2) Macular degeneration Macular degeneration type: unspecified type Eye laterality: unspecified Qualified Code(s): H35.30 - Unspecified macular degeneration (3) Constipation Constipation type: other constipation type Qualified Code(s): K59.09 - Other constipation (4) UTI (urinary tract infection) Urinary tract infection type: acute cystitis Hematuria presence: without hematuria Qualified Code(s): N30.00 - Acute cystitis without hematuria
[2018-11-05] MEDS ORDERED: CARBIDOPA/LEVODOPA 25/100MG EXT REL TAB PO SCH (21:00)
[2018-11-05] MEDS: CARBIDOPA/LEVODOPA 25/100MG EXT REL TAB PO SCH (21:39)
[2018-11-06 06:35] LABS: BUN Creatinine Ratio 14.5 (10-20); Calcium 9.2 mg/dl (8.5-10.1); Creatinine Clr Calc Pharmacy 36.3 ml/min; Est GFR (African American) 50.9; Est GFR (Non-African American) 43.9
[2018-11-06] MEDS: POLYETHYLENE (MIRALAX) 17 GM PACK PO SCH (10:24)
[2018-11-06] MEDS: ALPRAZolam 0.25 MG TABLET PO SCH ×3 (10:25→21:41)
[2018-11-06] MEDS: CARBIDOPA/LEVODOPA 25/100MG TAB PO SCH ×4 (10:25→19:22)
[2018-11-06] MEDS: DOCUSATE SODIUM 100 MG CAP PO SCH ×2 (10:26→21:29)
[2018-11-06] MEDS: HEPARIN SOD 5,000 UNIT/0.5 ML VIAL SQ SCH ×2 (10:26→21:30)
[2018-11-06] MEDS: LOSARTAN POTASSIUM 50 MG TAB PO SCH (10:26)
[2018-11-06] MEDS: AMLODIPINE BESYLATE 5 MG TAB PO SCH (10:27)
[2018-11-06] MEDS: AMANTADINE HCL 100 MG CAPSULE PO SCH ×2 (10:32→21:29)
[2018-11-06] MEDS: CARBIDOPA/LEVODOPA 25/100MG EXT REL TAB PO SCH (21:30)
--- NOTE | 2018-11-06 21:31 | Hospitalist Progress Note ---
Date of Service November 06, 2018 Assessment & Plan (1) Acute kidney injury: resolved. Cr last 48 hours has plateaued. Cr 1.4 may be his baseline. (2) Hallucinations: reported by . had these at home last few months. likely related to advanced PD. none noted by staff. if these become an issue could consider low-dose seroquel or something similar. He may have had metabolic encephalopathy 2nd to recent UTI. Speaking with yesterday it seems like he has returned to his normal baseline. (3) Generalized weakness: acute - 2nd to UTI. chronic weakness - 2nd to advanced PD. B12 level wnl. TSH wnl. PT,OT. CT head noted to be negative. Likely needs SNF. (4) Parkinson's disease: advanced, dx 8 years ago in [place]. appreciate neurology consultation by Dr Hayward. no change in medications at this time. PT,OT. treat other comorbidities. (5) Macular degeneration: noted (6) Hypertension: control acceptable continue home meds (7) TIA (transient ischemic attack): noted surprised he is not on asa for secondary prevention consider aspirin 81mg daily (8) Constipation: continue miralax add senna tomorrow AM KUB x-ray on day of admission w/ copious stool (9) UTI (urinary tract infection): recent; treated pre-hospital u/a pristine --- thus resolved (10) Chronic kidney disease, stage 3a: Cr 1.4 today may be his baseline (11) DVT prophylaxis: heparin 5000 BID reviewed PT/OT notes max assist for activities SNF placement? home an option but needs 24/7 care discussed this with on 11/05 ideally she would rather him be at home but she was not opposed to SNF placement recommended she watch a PT session to see if she could continue to care for him at home Subjective no issues overnight. during the visit the patient was sitting in the chair next to the bedside. he was sleeping but easily awoke. he offered no complaints. he was able to offer little in the way of pertinent history or ROS. Review of Systems Review of Systems: Unobtainable due to cognitive status Physical Exam Constitutional: no acute distress ENMT: external ear and nose normal, oropharynx normal Respiratory: normal respiratory effort, lungs clear to auscultation Cardiovascular: Rate/Rhythm: regular rate and regular rhythm Heart Sounds: normal S1 and normal S2; no murmur Vessels: posterior tibial pulses present and dorsalis pedis pulses present; no JVD Extremities: no edema Gastrointestinal (Abdomen): normal bowel sounds, soft, nontender, no hepatosplenomegaly Neurologic: Motor/Sensory: + tremor rigidity noted Psychiatric: Orientation: alert; + not oriented x 3 Results & Data Vital Signs (Past 12 Hours) Vital Signs Temp Pulse Resp BP BP Pulse Ox 11/06/18 19:26 168/65 H 163/65 H 11/06/18 19:00 36.5 C 72 20 169/65 H 96 11/06/18 15:49 36.5 C 62 20 147/71 H 96 11/06/18 11:00 36.7 C 89 20 112/66 96 Laboratory Results Laboratory Results - last 24 hr 11/06/18 11/06/18 05:36 05:36 Sodium 141 Potassium 4.0 Chloride 110 H Carbon Dioxide 25 Anion Gap 6.0 BUN 21 H Creatinine 1.45 H Est Cr Clr Drug Dosing 36.3 Est GFR ( Amer) 50.9 Est GFR (Non-Af Amer) 43.9 BUN/Creatinine Ratio 14.5 Glucose 86 Calcium 9.2 Vitamin B12 548 PG Care Time/CCT Total # of Minutes Spent Total Time Spent with Patient: Total time spent is greater than 50% in coord ination of care (as documented) at patient's floor/unit and/or counseling patient: (1) Macular degeneration Macular degeneration type: unspecified type Eye laterality: unspecified Qualified Code(s): H35.30 - Unspecified macular degeneration (2) Hypertension Hypertension type: essential hypertension Qualified Code(s): I10 - Essential (primary) hypertension (3) Constipation Constipation type: other constipation type Qualified Code(s): K59.09 - Other constipation (4) UTI (urinary tract infection) Urinary tract infection type: acute cystitis Hematuria presence: without hematuria Qualified Code(s): N30.00 - Acute cystitis without hematuria
[2018-11-06] MEDS: ARTIFICIAL TEARS OP SCH (21:42)
[2018-11-07 06:18] LABS: BUN Creatinine Ratio 13.8 (10-20); Calcium 8.9 mg/dl (8.5-10.1); Est GFR (African American) 57.5; Est GFR (Non-African American) 49.6; Potassium 3.9 mmol/L (3.5-5.1)
[2018-11-07] MEDS: ALPRAZolam 0.25 MG TABLET PO SCH ×3 (08:31→21:16)
[2018-11-07] MEDS: POLYETHYLENE (MIRALAX) 17 GM PACK PO SCH (08:31)
[2018-11-07] MEDS: ARTIFICIAL TEARS OP SCH ×2 (08:32→21:13)
[2018-11-07] MEDS: CARBIDOPA/LEVODOPA 25/100MG TAB PO SCH ×4 (08:32→19:17)
[2018-11-07] MEDS: LOSARTAN POTASSIUM 50 MG TAB PO SCH (08:33)
[2018-11-07] MEDS: DOCUSATE SODIUM 100 MG CAP PO SCH ×2 (08:33→21:16)
[2018-11-07] MEDS: HEPARIN SOD 5,000 UNIT/0.5 ML VIAL SQ SCH ×2 (08:33→21:17)
[2018-11-07] MEDS: SENNA 8.6 MG TAB PO SCH (08:34)
[2018-11-07] MEDS: AMLODIPINE BESYLATE 5 MG TAB PO SCH (08:34)
[2018-11-07] MEDS: AMANTADINE HCL 100 MG CAPSULE PO SCH ×2 (08:35→21:17)
--- NOTE | 2018-11-07 11:29 | Hospitalist Progress Note ---
Date of Service November 07, 2018 Assessment & Plan (1) Acute kidney injury: resolved. Cr down to 1.38 today no need to check further (2) Hallucinations: reported by . had these at home last few months. likely related to advanced PD. none noted by staff. if these become an issue could consider low-dose seroquel or something similar. Speaking with yesterday it seems like he has returned to his normal baseline. (3) Generalized weakness: acute - 2nd to UTI. chronic weakness - 2nd to advanced PD. B12 level wnl. TSH wnl. PT,OT. CT head noted to be negative. Likely needs SNF, will continue to d/w (4) Parkinson's disease: advanced, dx 8 years ago in [place]. appreciate neurology consultation by Dr Hayward. no change in medications at this time. PT,OT. treat other comorbidities. (5) Macular degeneration: noted (6) Hypertension: control acceptable continue home meds (7) TIA (transient ischemic attack): noted surprised he is not on asa for secondary prevention consider aspirin 81mg daily (8) Constipation: continue miralax add senna tomorrow AM KUB x-ray on day of admission w/ copious stool (9) UTI (urinary tract infection): recent; treated pre-hospital u/a pristine --- thus resolved (10) Chronic kidney disease, stage 3a: Cr 1.38 today may be his baseline (11) DVT prophylaxis: heparin 5000 BID reviewed PT/OT notes max assist for activities SNF placement? home an option but needs 24/[address] Gilmore discussed this with on 11/05 ideally she would rather him be at home but she was not opposed to SNF placement left a phone message with her today, will need to determine plan so that CM can look for SNF if needed Subjective patient sitting up in his chair, no major complaints said he had some shaking today which is normal with his Parkinson's reviewed labs, cr down to 1.3 today, baseline, electrolytes stable called his , left a message that we should continue to work on discharge plan of home with 24/7 care vs SNF rehab Review of Systems Review of Systems: Unobtainable due to cognitive status Physical Exam Constitutional: WD/WN, vitals as above Eyes: PERRL, conjunctivae normal, anicteric sclerae ENMT: external ear and nose normal, oropharynx normal Neck: trachea midline, no thyromegaly Respiratory: normal respiratory effort, lungs clear to auscultation Cardiovascular: RRR, no murmur, no edema Gastrointestinal (Abdomen): normal bowel sounds, soft, nontender, no hepatosplenomegaly Musculoskeletal: no cyanosis or clubbing, extremities motor strength 5/5 Skin: no rashes, warm and dry Neurologic: patellar DTR's 2+ bilat, sensation intact and PERRL, EOMI, accommodation nl, no face palsy, no dysarthria Motor/Sensory: + tremor (resting, bilateral, mild) Psychiatric: Orientation: alert, oriented to person and cooperative; + not oriented to place and + not oriented to time Lymphatic: no cervical or axillary lymphadenopathy Results & Data Vital Signs (Past 12 Hours) Vital Signs Temp Pulse Pulse Resp BP Pulse Ox 11/07/18 11:22 37.0 C 94 H 20 148/69 H 97 11/07/18 07:22 37.1 C 75 20 152/70 H 96 11/07/18 04:01 36.4 C L 74 18 175/73 H 99 11/07/18 00:21 67 Laboratory Results Laboratory Results - last 24 hr 11/07/18 05:33 Sodium 139 Potassium 3.9 Chloride 109 H Carbon Dioxide 26 Anion Gap 4.0 BUN 18 Creatinine 1.31 Est Cr Clr Drug Dosing 40.0 Est GFR ( Amer) 57.5 Est GFR (Non-Af Amer) 49.6 BUN/Creatinine Ratio 13.8 Glucose 84 Calcium 8.9 Medications Administered Current Inpatient Medications Acetaminophen (Tylenol) 650 mg PO Q4H PRN PRN Reason: Pain or Fever Stop: 12/04/18 21:17 Alprazolam (Xanax) 0.25 mg PO TID [facility] Stop: 12/04/18 21:17 Last Admin: 11/07/18 08:31 Dose: 0.25 mg Documented by: Amantadine HCl (Symmetrel) 100 mg PO BID [facility] Stop: 12/04/18 21:59 Last Admin: 11/07/18 08:35 Dose: 100 mg Documented by: Amlodipine Besylate (Norvasc) 10 mg PO QAM [facility] Stop: 12/05/18 08:59 Last Admin: 11/07/18 08:34 Dose: 10 mg Documented by: Artificial Tears (Artificial Tears) 1 drops OP BID [facility] Stop: 12/06/18 20:59 Last Admin: 11/07/18 08:32 Dose: 1 dose Documented by: Carbidopa/Levodopa (Sinemet 25/100 Mg) 2 tab PO TIDM [facility] Stop: 12/05/18 07:59 Last Admin: 11/07/18 08:32 Dose: 2 tab Documented by: Carbidopa/Levodopa (Sinemet 25/100 Mg) 1 tab PO DAILY@1900 [facility] Stop: 12/05/18 18:59 Last Admin: 11/06/18 19:22 Dose: 1 tab Documented by: Carbidopa/Levodopa (Sinement Cr 25/100mg) 1 tab PO HS [facility] Stop: 12/04/18 22:29 Last Admin: 11/06/18 21:30 Dose: 1 tab Documented by: Docusate Sodium (Colace) 100 mg PO BID [facility] Stop: 12/04/18 21:17 Last Admin: 11/07/18 08:33 Dose: 100 mg Documented by: Heparin Sodium (Porcine) (Heparin Sodium (Porcine)) 5,000 units SQ Q12 [facility] Stop: 12/04/18 21:59 Last Admin: 11/07/18 08:33 Dose: 5,000 units Documented by: Losartan Potassium (Cozaar) 50 mg PO QAM [facility] Stop: 12/05/18 08:59 Last Admin: 11/07/18 08:33 Dose: 50 mg Documented by: Polyethylene Glycol (Miralax Powder Packet) 17 gm PO DAILY [facility] Stop: 12/04/18 21:17 Last Admin: 11/07/18 08:31 Dose: 17 gm Documented by: Sennosides (Senokot) 17.2 mg PO QAM [facility] Stop: 12/07/18 08:59 Last Admin: 11/07/18 08:34 Dose: 17.2 mg Documented by: PG Care Time/CCT Total # of Minutes Spent Total Time Spent with Patient: Total time spent is greater than 50% in coordination of care (as documented) at patient's floor/unit and/or counseling patient: (1) Macular degeneration Macular degeneration type: unspecified type Eye laterality: unspecified Qu alified Code(s): H35.30 - Unspecified macular degeneration (2) Hypertension Hypertension type: essential hypertension Qualified Code(s): I10 - Essential (primary) hypertension (3) Constipation Constipation type: other constipation type Qualified Code(s): K59.09 - Other constipation (4) UTI (urinary tract infection) Urinary tract infection type: acute cystitis Hematuria presence: without hematuria Qualified Code(s): N30.00 - Acute cystitis without hematuria
[2018-11-07] MEDS: CARBIDOPA/LEVODOPA 25/100MG EXT REL TAB PO SCH (21:16)
[2018-11-08] MEDS: POLYETHYLENE (MIRALAX) 17 GM PACK PO SCH (08:34)
[2018-11-08] MEDS: ALPRAZolam 0.25 MG TABLET PO SCH ×3 (08:34→22:02)
[2018-11-08] MEDS: DOCUSATE SODIUM 100 MG CAP PO SCH ×2 (08:34→22:06)
[2018-11-08] MEDS: LOSARTAN POTASSIUM 50 MG TAB PO SCH (08:34)
[2018-11-08] MEDS: ARTIFICIAL TEARS OP SCH ×2 (08:34→22:02)
[2018-11-08] MEDS: AMLODIPINE BESYLATE 5 MG TAB PO SCH (08:35)
[2018-11-08] MEDS: CARBIDOPA/LEVODOPA 25/100MG TAB PO SCH ×4 (08:35→19:49)
[2018-11-08] MEDS: HEPARIN SOD 5,000 UNIT/0.5 ML VIAL SQ SCH ×2 (08:35→22:03)
[2018-11-08] MEDS: AMANTADINE HCL 100 MG CAPSULE PO SCH ×2 (08:36→22:04)
[2018-11-08] MEDS: SENNA 8.6 MG TAB PO SCH (08:36)
[2018-11-08] MEDS ORDERED: VANCOMYCIN CONSULT ACTIVE PRN (15:09)
[2018-11-08 15:26] LABS: Basophils # (auto) 0.02 K/uL (0-0.2); Basophils % (auto) 0.1 %; Eosinophils # (auto) 0.17 K/uL (0-0.5); Eosinophils % (auto) 0.8 %; Hematocrit (blood only) 36.8 % (42-52); Hemoglobin 12.2 g/dL (14.0-18.0); Immature Granulocytes # (auto) 0.06 K/uL (0.00-0.02); Immature Granulocytes % (auto) 0.3 %; Lymphocytes # (auto) 0.78 K/uL (1.2-3.4); Lymphocytes % (auto) 3.8 %; Mean Corpuscular Hgb Conc 33.2 g/dL (32-36); Mean Corpuscular Volume 95.6 fL (80-100); Mean Platelet Volume 9.4 fL (7.4-10.4); Monocytes # (auto) 1.32 K/uL (0.11-0.59); Monocytes % (auto) 6.4 %; Neutrophils # (auto) 18.16 K/uL (1.4-6.5); Neutrophils % (auto) 88.6 %; Platelet Count 239 K/uL (130-400); RDW Coefficient of Variation 13.3 % (11.5-14.5); RDW Standard Deviation 46.4 fL (36.4-46.3); Red Blood Count 3.85 M/uL (4.7-6.1); White Blood Count 20.51 K/uL (4.8-10.8)
--- NOTE | 2018-11-08 15:37 | XRay Report ---
XR chest 1V portable CLINICAL HISTORY: fever COMPARISON STUDY: 11/04/2018 FINDINGS: The study is mildly rotated. The heart is mildly enlarged. There is aortic tortuosity. Ther e is mild elevation of the right hemidiaphragm. There is no focal pulmonary consolidation. There is n o failure. There are no pleural effusions.[ IMPRESSION: Mild elevation of the right hemidiaphragm. No evidence of focal pulmonary consolidation. Electronically signed by: Jhoan Florez M.D. 11/08/2018 3:35 PM
--- NOTE | 2018-11-08 15:42 | Hospitalist Progress Note ---
Date of Service November 08, 2018 Assessment & Plan (1) UTI (urinary tract infection): several recent UTI that were treated prior to admission UA on admission did not show signs of infection and WBC was normal two days in a row urine culture was sent however and it grew Streptococcal species, awaiting sensitivities start on Rocephin and Vancomycin for time being, no prior cultures available to check prior infections/sensitivities repeat CBC in the morning start on NSS + 20mEq of K at 80cc/hr (2) Acute kidney injury: resolved. Cr down to 1.38 yesterday resume IV fluids due to infection and poor oral intake today repeat BMP today (3) Hallucinations: reported by . had these at home last few months. likely related to advanced PD. none noted by staff. if these become an issue could consider low-dose seroquel or something similar. (4) Generalized weakness: acute - 2nd to UTI and dehydration chronic weakness - 2nd to advanced PD. B12 level wnl. TSH wnl. PT,OT. CT head noted to be negative. plans to take him home with care givers once medically stable (5) Parkinson's disease: advanced, dx 8 years ago in [place]. appreciate neurology consultation by Dr Hayward. no change in medications at this time. PT,OT. treat other comorbidities. (6) Macular degeneration: noted (7) Hypertension: markedly elevated this afternoon will monitor (8) TIA (transient ischemic attack): noted consider aspirin 81mg daily (9) Constipation: continue miralax KUB x-ray on day of admission w/ copious stool (10) Chronic kidney disease, stage 3a: Cr 1.38 on 11/07, his baseline check BMP today and tomorrow start back on gentle IV fluids (11) DVT prophylaxis: heparin 5000 BID reviewed PT/OT notes max assist for activities would like to take home once medically stable set up with [employer] for therapy and nursing she is looking into increased services for care givers, especially at night Subjective patient seen this morning, sitting up in chair after breakfast he offered no complaints, no signs of distress, vitals stable called to the room in the afternoon because had concerns about his status she said he was shaking with the chills and less responsive than yesterday upon arrival he appeared uncomfortable and had some diaphoresis vitals showed a temperature of 38.1 CBC showed a WBC of 20k, up from the 9.74k from 11/05 urine culture grew out Streptococcal species, no past urine cultures to compare d/w , will now treat the UTI, initially held abx because the UA was normal will start IV fluids, check a CXR and follow up on urine culture sensitivities I viewed the CXR personally, no signs of infiltrate to suggest a pneumonia Review of Systems Review of Systems: Unobtainable due to cognitive status (advanced dementia, limited verbal responses) Physical Exam Constitutional: WD/WN, vitals as above + ill appearing and + diaphoretic Eyes: PERRL, conjunctivae normal, anicteric sclerae ENMT: external ear and nose normal, oropharynx normal Neck: trachea midline, no thyromegaly Respiratory: normal respiratory effort, lungs clear to auscultation Cardiovascular: RRR, no murmur, no edema Gastrointestinal (Abdomen): normal bowel sounds, soft, nontender, no hepatosplenomegaly Musculoskeletal: no cyanosis or clubbing, extremities motor strength 5/5 Skin: no rashes, warm and dry Neurologic: patellar DTR's 2+ bilat, sensation intact and PERRL, EOMI, accommodation nl, no face palsy, no dysarthria Motor/Sensory: + tremor (resting, bilateral, mild) Psychiatric: Orientation: alert, oriented to person and cooperative; + not oriented to place and + not oriented to time Lymphatic: no cervical or axillary lymphadenopathy Results & Data Vital Signs (Past 12 Hours) Vital Signs Temp Pulse Resp BP BP Pulse Ox 11/08/18 15:16 38.1 C H 96 H 20 183/76 H 95 11/08/18 14:28 37.0 C 97 H 20 153/78 H 92 11/08/18 11:20 36.6 C 106 H 20 143/65 H 93 11/08/18 07:05 36.8 C 76 18 175/76 H 97 11/08/18 04:35 37.0 C 76 20 159/75 H 97 Laboratory Results Laboratory Results - last 24 hr 11/08/18 11/08/18 15:17 15:17 WBC 20.51 H RBC 3.85 L Hgb 12.2 L Hct 36.8 L MCV 95.6 MCH 31.7 MCHC 33.2 RDW Std Deviation 46.4 H RDW Coeff of Lao 13.3 Plt Count 239 MPV 9.4 Immature Gran % (Auto) 0.3 Neut % (Auto) 88.6 Lymph % (Auto) 3.8 Gage % (Auto) 6.4 Eos % (Auto) 0.8 Baso % (Auto) 0.1 Immature Gran # (Auto) 0.06 H Neut # (Auto) 18.16 H Lymph # (Auto) 0.78 L Gage # (Auto) 1.32 H Eos # (Auto) 0.17 Baso # (Auto) 0.02 Sodium Pending Potassium Pending Chloride Pending Carbon Dioxide Pending Anion Gap Pending BUN Pending Creatinine Pending Est Cr Clr Drug Dosing Pending Est GFR ( Amer) Pending Est GFR (Non-Af Amer) Pending BUN/Creatinine Ratio Pending Glucose Pending Calcium Pending Medications Administered Current Inpatient Medications Acetaminophen (Tylenol) 650 mg PO Q4H PRN PRN Reason: Pain or Fever Stop: 12/04/18 21:17 Alprazolam (Xanax) 0.25 mg PO TID [facility] Stop: 12/04/18 21:17 Last Admin: 11/08/18 08:34 Dose: 0.25 mg Documented by: Amantadine HCl (Symmetrel) 100 mg PO BID [facility] Stop: 12/04/18 21:59 Last Admin: 11/08/18 08:36 Dose: 100 mg Documented by: Amlodipine Besylate (Norvasc) 10 mg PO QAM [facility] Stop: 12/05/18 08:59 Last Admin: 11/08/18 08:35 Dose: 10 mg Documented by: Artificial Tears (Artificial Tears) 1 drops OP BID [facility] Stop: 12/06/18 20:59 Last Admin: 11/08/18 08:34 Dose: 1 dose Documented by: Carbidopa/Levodopa (Sinemet 25/100 Mg) 2 tab PO TIDM [facility] Stop: 12/05/18 07:59 Last Admin: 11/08/18 11:54 Dose: 2 tab Documented by: Carbidopa/Levodopa (Sinemet 25/100 Mg) 1 tab PO DAILY@1900 [facility] Stop: 12/05/18 18:59 Last Admin: 11/07/18 19:17 Dose: 1 tab Documented by: Carbidopa/Levodopa (Sinement Cr 25/100mg) 1 tab PO HS [facility] Stop: 12/04/18 22:29 Last Admin: 11/07/18 21:16 Dose: 1 tab Documented by: Docusate Sodium (Colace) 100 mg PO BID [facility] Stop: 12/04/18 21:17 Last Admin: 11/08/18 08:34 Dose: 100 mg Documented by: Heparin Sodium (Porcine) (Heparin Sodium (Porcine)) 5,000 units SQ Q12 [facility] Stop: 12/04/18 21:59 Last Admin: 11/08/18 08:35 Dose: 5,000 units Documented by: Ceftriaxone Sodium 1,000 mg/ (Dextrose) 50 mls @ 100 mls/hr IV Q24H [facility] Stop: 11/18/18 15:14 Potassium Chloride/Sodium Chloride (Normal Saline W/20 Meq Kcl) 20 meq in 1,000 mls @ 80 mls/hr IV .[id number] [facility] Stop: 12/08/18 15:14 Vancomycin HCl 1,000 mg/ (Sodium Chloride) 270 mls @ 125 mls/hr IV Q12H [facility]; Protocol Stop: 11/18/18 15:14 Losartan Potassium (Cozaar) 50 mg PO QAM [facility] Stop: 12/05/18 08:59 Last Admin: 11/08/18 08:34 Dose: 50 mg Documented by: Miscellaneous Information (Consult) 1 ea N/A UD PRN PRN Reason: Consult Stop: 12/08/18 15:08 Polyethylene Glycol (Miralax Powder Packet) 17 gm PO DAILY [facility] Stop: 12/04/18 21:17 Last Admin: 11/08/18 08:34 Dose: 17 gm Documented by: Sennosides (Senokot) 17.2 mg PO QAM [facility] Stop: 12/07/18 08:59 Last Admin: 11/08/18 08:36 Dose: 17.2 mg Documented by: PG Care Time/CCT Total # of Minutes Spent Total Time Spent with Patient: Total time spent is greater than 50% in coordination of care (as documented) at patient's floor/unit and/or counseling patient: (1) Macular degeneration Macular degeneration type: unspecified type Eye laterality: unspecified Qualified Code(s): H35.30 - Unspecified macular degeneration (2) Hypertension Hypertension type: essential hypertension Qualified Code(s): I10 - Essential (primary) hypertension (3) Constipation Constipation type: other constipation type Qualified Code(s): K59.09 - Other constipation (4) UTI (urinary tract infection) Urinary tract infection type: acute cystitis Hematuria presence: without hematuria Qualified Code(s): N30.00 - Acute cystitis without hematuria
[2018-11-08 15:48] LABS: BUN Creatinine Ratio 14.4 (10-20); Calcium 9.1 mg/dl (8.5-10.1); Creatinine Clr Calc Pharmacy 30.5 ml/min; Est GFR (African American) 39.2; Est GFR (Non-African American) 33.8; Potassium 4.2 mmol/L (3.5-5.1)
[2018-11-08] MEDS ORDERED: VANCOMYCIN HCL 1,500 MG in SODIUM CHLORIDE 0.9% 500 ML IV ONE (16:00)
[2018-11-08] MEDS ORDERED: cefTRIAXone SODIUM 1,000 MG in DEXTROSE 5% 50 ML IV SCH (16:00)
--- NOTE | 2018-11-08 16:43 | Pharmacy Report ---
Pharmacy Abx Initial Consult - Date of Service November 08, 2018 - Pharmacy Dosing Scope Date of Consult: 11/08/18 Consultation requested by: Dr. TERRI VACA Pharmacy is consulted to initiate VANCOMYCIN IV dosing therapy, order appropriate labs and adjust drug dose/frequency. - Subjective The patient is a 83 year old M admitted on 11/04/18 20:07 with MS changes and possible UTI after failing outpt antibiotics. - Objective Height: 5 ft 9 in Weight: 73 kg Vital Signs (Past 12hrs): Vital Signs Temp Pulse Resp BP BP Pulse Ox 11/08/18 15:16 38.1 C H 96 H 20 183/76 H 95 11/08/18 14:28 37.0 C 97 H 20 153/78 H 92 11/08/18 11:20 36.6 C 106 H 20 143/65 H 93 11/08/18 07:05 36.8 C 76 18 175/76 H 97 11/08/18 04:35 37.0 C 76 20 159/75 H 97 Lab Results (24hrs): Laboratory Tests (24 Hours) 11/08/18 11/08/18 15:17 15:17 WBC 20.51 H Neut # (Auto) 18.16 H Creatinine 1.80 H D Est Cr Clr Drug Dosing 30.5 Micro Results: Microbiology 11/06/18 06:15 Urine,Clean Catch Urine Culture - Preliminary Corynbact.sp not urealyticum Streptococcus species - Risk Factors for Resistance * History of infection - failed outpt Rx for UT - Assessment & Plan Assessment 83 year old M with MS changes, failed OP UTI Rx, MARCELO, fluctuating Scr., now pos urine cultures Plan IV Vancomycin for treatment of preliminary report of Corynebacterium and Streptococcus Vancomycin IV * Estimated PK Parameters: Vd 0.7 L/kg, Tate 0.03 hr-1, t1/2 23 hr * Loading dose: 1500 mg (20.5 mg/kg) * Maintenance dose: 1000 mg IV (13.7 mg/kg) every 30 hours * Goal trough level for complicated UTI: 13 to 17 mcg/mL * Pre-steady state trough level ordered for Thursday10/31/09 before the 2200 ho urs dose * A less than traditional dose and/or extended dosing interval has/have been selected due to likelihood of drug accumulation in patient with h/o CKD. Pharmacy will continue to follow and will adjust dose/frequency as necessary. Thank you.
[2018-11-08] MEDS: NSS + 20MEQ KCL 20 MEQ/1,000 ML BAG IV SCH (17:01)
[2018-11-08] MEDS: CARBIDOPA/LEVODOPA 25/100MG EXT REL TAB PO SCH (22:02)
[2018-11-09] MEDS: NSS + 20MEQ KCL 20 MEQ/1,000 ML BAG IV SCH ×2 (05:54→16:10)
[2018-11-09 05:59] LABS: Basophils # (auto) 0.02 K/uL (0-0.2); Basophils % (auto) 0.1 %; Eosinophils # (auto) 0.06 K/uL (0-0.5); Eosinophils % (auto) 0.3 %; Hematocrit (blood only) 33.1 % (42-52); Hemoglobin 11.1 g/dL (14.0-18.0); Immature Granulocytes # (auto) 0.08 K/uL (0.00-0.02); Immature Granulocytes % (auto) 0.4 %; Lymphocytes # (auto) 1.05 K/uL (1.2-3.4); Lymphocytes % (auto) 4.8 %; Mean Corpuscular Hgb Conc 33.5 g/dL (32-36); Mean Corpuscular Volume 95.7 fL (80-100); Mean Platelet Volume 9.3 fL (7.4-10.4); Monocytes # (auto) 1.74 K/uL (0.11-0.59); Monocytes % (auto) 7.9 %; Neutrophils # (auto) 19.11 K/uL (1.4-6.5); Neutrophils % (auto) 86.5 %; Platelet Count 238 K/uL (130-400); RDW Coefficient of Variation 13.3 % (11.5-14.5); RDW Standard Deviation 46.3 fL (36.4-46.3); Red Blood Count 3.46 M/uL (4.7-6.1); White Blood Count 22.06 K/uL (4.8-10.8)
[2018-11-09 06:24] LABS: BUN Creatinine Ratio 21.4 (10-20); Calcium 8.8 mg/dl (8.5-10.1); Est GFR (African American) 57.5; Est GFR (Non-African American) 49.6; Potassium 4.2 mmol/L (3.5-5.1)
[2018-11-09] MEDS: ARTIFICIAL TEARS OP SCH ×2 (09:25→20:43)
[2018-11-09] MEDS: DOCUSATE SODIUM 100 MG CAP PO SCH ×2 (09:25→20:43)
[2018-11-09] MEDS: SENNA 8.6 MG TAB PO SCH (09:25)
[2018-11-09] MEDS: POLYETHYLENE (MIRALAX) 17 GM PACK PO SCH (09:25)
[2018-11-09] MEDS: AMLODIPINE BESYLATE 5 MG TAB PO SCH (09:25)
[2018-11-09] MEDS: LOSARTAN POTASSIUM 50 MG TAB PO SCH (09:26)
[2018-11-09] MEDS: CARBIDOPA/LEVODOPA 25/100MG TAB PO SCH ×4 (09:26→20:11)
[2018-11-09] MEDS: HEPARIN SOD 5,000 UNIT/0.5 ML VIAL SQ SCH ×2 (09:26→20:53)
[2018-11-09] MEDS: AMANTADINE HCL 100 MG CAPSULE PO SCH ×2 (09:26→20:44)
[2018-11-09] MEDS: ALPRAZolam 0.25 MG TABLET PO SCH ×3 (09:29→20:55)
--- NOTE | 2018-11-09 11:26 | Hospitalist Progress Note ---
Date of Service November 09, 2018 Assessment & Plan (1) UTI (urinary tract infection): several recent UTI that were treated prior to admission UA on admission did not show signs of infection and WBC was normal two days in a row urine culture was sent however and it grew Enterococcus, not VRE fortunately will stop Rocephin and continue vancomycin for the time being continue IV fluids since PO intake suboptimal WBC up to 22k, may be due to potential C diff infection, follow up on results check blood cultures (2) Diarrhea: started this morning, smells and appears like C diff will check for toxin and antigen start on Vancomycin 125mg PO q6 while waiting for results would explain the change in status and the rising WBC if positive will need at least 14 days of treatment (3) Acute kidney injury: resolved. Cr stable at 1.31 today continue IV fluids due to infection and poor oral intake repeat BMP tomorrow (4) Hallucinations: reported by . had these at home last few months. likely related to advanced PD. none noted by staff. if these become an issue could consider low-dose seroquel or something similar. (5) Generalized weakness: acute - 2nd to UTI and dehydration chronic weakness - 2nd to advanced PD. B12 level wnl. TSH wnl. PT,OT. CT head noted to be negative. plans to take him home with care givers once medically stable (6) Parkinson's disease: advanced, dx 8 years ago in [place]. appreciate neurology consultation by Dr Hayward. no change in medications at this time. PT,OT. treat other comorbidities. (7) Macular degeneration: noted (8) Hypertension: markedly elevated this afternoon will monitor (9) TIA (transient ischemic attack): noted consider aspirin 81mg daily (10) Constipation: resolved, actually with diarrhea now hold on stool softeners and laxatives (11) Chronic kidney disease, stage 3a: Cr 1.31 today check BMP today and tomorrow start back on gentle IV fluids (12) DVT prophylaxis: heparin 5000 BID reviewed PT/OT notes max assist for activities would like to take home once medically stable set up with [employer] for therapy and nursing she is looking into increased services for care givers, especially at night Subjective patient with some chills and diaphoresis again this morning no true fever since yesterday some diarrhea this morning, per RN it appeared like C diff urine culture back, Enterococcus, sensitive to PCN and Vancomycin reviewed labs, WBC actually up slightly to 22k patient denies abdominal pain per RN he did not eat a lot this morning Review of Systems Review of Systems: Unobtainable due to cognitive status Physical Exam Constitutional: WD/WN, vitals as above + diaphoretic Eyes: PERRL, conjunctivae normal, anicteric sclerae ENMT: external ear and nose normal, oropharynx normal Neck: trachea midline, no thyromegaly Respiratory: normal respiratory effort, lungs clear to auscultation Cardiovascular: RRR, no murmur, no edema Gastrointestinal (Abdomen): normal bowel sounds, soft, nontender, no hepatosplenomegaly Musculoskeletal: no cyanosis or clubbing, extremities motor strength 5/5 Skin: no rashes, warm and dry Neurologic: patellar DTR's 2+ bilat, sensation intact and PERRL, EOMI, accommodation nl, no face palsy, no dysarthria Motor/Sensory: + tremor (resting, bilateral, mild) Psychiatric: Orientation: alert, oriented to person and cooperative; + not oriented to place and + not oriented to time Lymphatic: no cervical or axillary lymphadenopathy Results & Data Vital Signs (Past 12 Hours) Vital Signs Temp Pulse Resp BP BP Pulse Ox 11/09/18 09:35 37.3 C 11/09/18 09:23 83 173/69 H 11/09/18 07:00 37.0 C 84 18 167/50 H 96 11/09/18 04:39 36.9 C 96 H 20 157/66 H 92 11/08/18 23:47 36.9 C 103 H 20 157/78 H 97 Laboratory Results Laboratory Results - last 24 hr 11/08/18 11/08/18 11/09/18 15:17 15:17 05:31 WBC 20.51 H 22.06 H RBC 3.85 L 3.46 L Hgb 12.2 L 11.1 L Hct 36.8 L 33.1 L MCV 95.6 95.7 MCH 31.7 32.1 MCHC 33.2 33.5 RDW Std Deviation 46.4 H 46.3 RDW Coeff of Alo 13.3 13.3 Plt Count 239 238 MPV 9.4 9.3 Immature Gran % (Auto) 0.3 0.4 Neut % (Auto) 88.6 86.5 Lymph % (Auto) 3.8 4.8 Cecil % (Auto) 6.4 7.9 Eos % (Auto) 0.8 0.3 Baso % (Auto) 0.1 0.1 Immature Gran # (Auto) 0.06 H 0.08 H Neut # (Auto) 18.16 H 19.11 H Lymph # (Auto) 0.78 L 1.05 L Cecil # (Auto) 1.32 H 1.74 H Eos # (Auto) 0.17 0.06 Baso # (Auto) 0.02 0.02 Sodium 135 L Potassium 4.2 Chloride 105 Carbon Dioxide 24 Anion Gap 6.0 BUN 26 H Creatinine 1.80 H D Est Cr Clr Drug Dosing 30.5 Est GFR ( Amer) 39.2 Est GFR (Non-Af Amer) 33.8 BUN/Creatinine Ratio 14.4 Glucose 108 H Calcium 9.1 Stl C. diff Tox B Gene 11/09/18 11/09/18 05:31 09:10 WBC RBC Hgb Hct MCV MCH MCHC RDW Std Deviation RDW Coeff of Alo Plt Count MPV Immature Gran % (Auto) Neut % (Auto) Lymph % (Auto) Cecil % (Auto) Eos % (Auto) Baso % (Auto) Immature Gran # (Auto) Neut # (Auto) Lymph # (Auto) Cecil # (Auto) Eos # (Auto) Baso # (Auto) Sodium 137 Potassium 4.2 Chloride 110 H Carbon Dioxide 22 Anion Gap 5.0 BUN 28 H Creatinine 1.31 D Est Cr Clr Drug Dosing 42.0 Est GFR ( Amer) 57.5 Est GFR (Non-Af Amer) 49.6 BUN/Creatinine Ratio 21.4 H Glucose 110 H Calcium 8.8 Stl C. diff Tox B Gene Pending Medications Administered Current Inpatient Medications Acetaminophen (Tylenol) 650 mg PO Q4H PRN PRN Reason: Pain or Fever Stop: 12/04/18 21:17 Last Admin: 11/08/18 15:46 Dose: 650 mg Documented by: Alprazolam (Xanax) 0.25 mg PO TID [facility] Stop: 12/04/18 21:17 Last Admin: 11/09/18 09:29 Dose: 0.25 mg Documented by: Amantadine HCl (Symmetrel) 100 mg PO BID [facility] Stop: 12/04/18 21:59 Last Admin: 11/09/18 09:26 Dose: 100 mg Documented by: Amlodipine Besylate (Norvasc) 10 mg PO QAM [facility] Stop: 12/05/18 08:59 Last Admin: 11/09/18 09:25 Dose: 10 mg Documented by: Artificial Tears (Artificial Tears) 1 drops OP BID [facility] Stop: 12/06/18 20:59 Last Admin: 11/09/18 09:25 Dose: 1 dose Documented by: Carbidopa/Levodopa (Sinemet 25/100 Mg) 2 tab PO TIDM [facility] Stop: 12/05/18 07:59 Last Admin: 11/09/18 09:26 Dose: 2 tab Documented by: Carbidopa/Levodopa (Sinemet 25/100 Mg) 1 tab PO DAILY@1900 [facility] Stop: 12/05/18 18:59 Last Admin: 11/08/18 19:49 Dose: 1 tab Documented by: Carbidopa/Levodopa (Sinement Cr 25/100mg) 1 tab PO HS [facility] Stop: 12/04/18 22:29 Last Admin: 11/08/18 22:02 Dose: 1 tab Documented by: Docusate Sodium (Colace) 100 mg PO BID [facility] Stop: 12/04/18 21:17 Last Admin: 11/09/18 09:25 Dose: Not Given Documented by: Heparin Sodium (Porcine) (Heparin Sodium (Porcine)) 5,000 units SQ Q12 [facility] Stop: 12/04/18 21:59 Last Admin: 11/09/18 09:26 Dose: 5,000 units Documented by: Potassium Chloride/Sodium Chloride (Normal Saline W/20 Meq Kcl) 20 meq in 1,000 mls @ 80 mls/hr IV .[id number] [facility] Stop: 12/08/18 15:14 Last Admin: 11/09/18 05:54 Dose: 80 mls/hr Documented by: Vancomycin HCl 1,000 mg/ (Sodium Chloride) 270 mls @ 125 mls/hr IV Q30H [facility]; Protocol Stop: 11/18/18 15:59 Losartan Potassium (Cozaar) 50 mg PO QAM [facility] Stop: 12/05/18 08:59 Last Admin: 11/09/18 09:26 Dose: 50 mg Documented by: Miscellaneous Information (Consult) 1 ea N/A UD PRN PRN Reason: Consult Stop: 12/08/18 15:08 Polyethylene Glycol (Miralax Powder Packet) 17 gm PO DAILY [facility] Stop: 12/04/18 21:17 Last Admin: 11/09/18 09:25 Dose: Not Given Documented by: Raspberry (Raspberry) 5 ml PO Q6 [facility] Stop: 11/23/18 11:59 Sennosides (Senokot) 17.2 mg PO QAM [facility] Stop: 12/07/18 08:59 Last Admin: 11/09/18 09:25 Dose: Not Given Documented by: Vancomycin HCl (Vancomycin Hcl) 125 mg PO Q6 [facility] Stop: 11/19/18 11:59 PG Care Time/CCT Total # of Minutes Spent Total Time Spent with Patient: Total time spent is greater than 50% in coordination of care (as documented) at patient's floor/unit and/or counseling patient: (1) UTI (urinary tract infection) Urinary tract infection type: acute cystitis Hematuria presence: without hematuria Qualified Code(s): N30.00 - Acute cystitis without hematuria (2) Macular degeneration Macular degeneration type: unspecified type Eye laterality: unspecified Qualified Code(s): H35.30 - Unspecified macular degeneration (3) Hypertension Hypertension type: essential hypertension Qualified Code(s): I10 - Essential (primary) hypertension (4) Constipation Constipation type: other constipation type Qualified Code(s): K59.09 - Other constipation
[2018-11-09 11:57] LABS: Cdiff Antigen Positive
[2018-11-09 12:00] LABS: Cdiff Toxin A+B Positive Cdiff Toxin (Negative)
[2018-11-09] MEDS: RASPBERRY SYRUP 5 ML UDP PO SCH ×2 (12:52→18:08)
[2018-11-09] MEDS: VANCOMYCIN HCL 125 MG/2.5ML SOLN PO SCH ×2 (12:53→18:12)
[2018-11-09] MEDS ORDERED: VANCOMYCIN HCL 1,000 MG in SODIUM CHLORIDE 0.9% 250 ML IV SCH (16:00)
[2018-11-09] MEDS: AMPICILLIN 1,000 MG in SODIUM CHLOR 0.9% AD-VAN 50 ML IV SCH ×2 (16:23→21:00)
[2018-11-09] MEDS: CALCIUM CARBONATE 500 MG CHEWABLE TAB PO PRN (16:23)
[2018-11-09] MEDS: CARBIDOPA/LEVODOPA 25/100MG EXT REL TAB PO SCH (20:44)
[2018-11-10] MEDS: RASPBERRY SYRUP 5 ML UDP PO SCH ×5 (00:04→23:46)
[2018-11-10] MEDS: VANCOMYCIN HCL 125 MG/2.5ML SOLN PO SCH ×5 (00:04→23:47)
[2018-11-10] MEDS: AMPICILLIN 1,000 MG in SODIUM CHLOR 0.9% AD-VAN 50 ML IV SCH ×4 (03:55→22:05)
[2018-11-10] MEDS: NSS + 20MEQ KCL 20 MEQ/1,000 ML BAG IV SCH (06:07)
[2018-11-10 07:00] LABS: Creatinine Clr Calc Pharmacy 52.5 ml/min; Est GFR (African American) 77.9; Est GFR (Non-African American) 67.2
--- NOTE | 2018-11-10 08:02 | XRay Report ---
XR chest 1V portable CLINICAL HISTORY: cough, fever dyspnea COMPARISON STUDY: 11/08/2018 FINDINGS: The bones soft tissues and hemidiaphragms are normal. The cardiomediastinal silhouette is n ormal. The lungs are clear. The pulmonary vasculature is normal. IMPRESSION: Negative chest. The above report was generated using voice recognition software. It may contain grammatical, syntax or spelling errors. Electronically signed by: Sarbjit Kothari M.D. 11/10/2018 8:00 AM
[2018-11-10] MEDS: CARBIDOPA/LEVODOPA 25/100MG TAB PO SCH ×4 (08:11→20:02)
[2018-11-10] MEDS: AMANTADINE HCL 100 MG CAPSULE PO SCH ×2 (08:12→22:00)
[2018-11-10] MEDS: AMLODIPINE BESYLATE 5 MG TAB PO SCH (08:12)
[2018-11-10] MEDS: DOCUSATE SODIUM 100 MG CAP PO SCH (08:13)
[2018-11-10] MEDS: POLYETHYLENE (MIRALAX) 17 GM PACK PO SCH (08:13)
[2018-11-10] MEDS: LOSARTAN POTASSIUM 50 MG TAB PO SCH (08:13)
[2018-11-10] MEDS: SENNA 8.6 MG TAB PO SCH (08:14)
[2018-11-10] MEDS: ARTIFICIAL TEARS OP SCH ×2 (08:15→21:59)
[2018-11-10] MEDS: HEPARIN SOD 5,000 UNIT/0.5 ML VIAL SQ SCH ×2 (08:15→22:01)
[2018-11-10] MEDS: ALPRAZolam 0.25 MG TABLET PO SCH ×3 (08:24→22:05)
--- NOTE | 2018-11-10 13:25 | Hospitalist Progress Note ---
Date of Service November 10, 2018 Assessment & Plan (1) UTI (urinary tract infection): several recent UTI that were treated prior to admission UA on admission did not show signs of infection and WBC was normal two days in a row urine culture was sent however and it grew Enterococcus, not VRE fortunately will treat with Ampicillin while inpatient, will need 10 days total due to complicated status stop IV fluids today, eating better (2) C. difficile colitis: diarrhea started in the morning on 11/09 tested positive for C diff toxin and gene treat with Vancomycin 125mg PO q6 no fever, WBC markedly high which is expected no abdominal pain will need 14 days of Vancomycin past completion of the Ampicillin (3) Acute kidney injury: resolved. Cr stable at 1.0 today stop IV fluids as PO intake is better repeat BMP tomorrow (4) Hallucinations: resolved (5) Generalized weakness: acute - 2nd to UTI and dehydration and C diff colitis chronic weakness - 2nd to advanced PD. B12 level wnl. TSH wnl. PT,OT. CT head noted to be negative. plans to take him home with care givers once medically stable (6) Parkinson's disease: advanced, dx 8 years ago in [place]. appreciate neurology consultation by Dr Hayward. no change in medications at this time. PT,OT. treat other comorbidities. (7) Macular degeneration: noted (8) Hypertension: markedly elevated this afternoon will monitor (9) TIA (transient ischemic attack): noted consider aspirin 81mg daily (10) Constipation: resolved, actually with diarrhea now hold on stool softeners and laxatives (11) Chronic kidney disease, stage 3a: Cr 1.0 today (12) DVT prophylaxis: heparin 5000 BID reviewed PT/OT notes max assist for activities would like to take home once medically stable set up with [employer] for therapy and nursing she is looking into increased services for care givers, especially at night Subjective patient more alert today, eating better less diarrhea, none this morning, no abdominal pain breathing is stable, less coughing had a low grade temperature this morning CXR was again negative for infiltrate reviewed labs, Cr stable Review of Systems Review of Systems: Unobtainable due to cognitive status Physical Exam Constitutional: WD/WN, vitals as above Eyes: PERRL, conjunctivae normal, anicteric sclerae ENMT: external ear and nose normal, oropharynx normal Neck: trachea midline, no thyromegaly Respiratory: normal respiratory effort, lungs clear to auscultation Cardiovascular: RRR, no murmur, no edema Gastrointestinal (Abdomen): normal bowel sounds, soft, nontender, no hepatosplenomegaly Musculoskeletal: no cyanosis or clubbing, extremities motor strength 5/5 Skin: no rashes, warm and dry Neurologic: patellar DTR's 2+ bilat, sensation intact and PERRL, EOMI, accommodation nl, no face palsy, no dysarthria Motor/Sensory: + tremor (resting, bilateral, mild) Psychiatric: Orientation: alert, oriented to person and cooperative; + not oriented to place and + not oriented to time Lymphatic: no cervical or axillary lymphadenopathy Results & Data Vital Signs (Past 12 Hours) Vital Signs Temp Pulse Pulse Resp BP Pulse Ox 11/10/18 11:30 37.3 C 88 16 165/70 H 97 11/10/18 08:10 37.5 C 11/10/18 08:00 83 11/10/18 07:07 37.9 C H 86 20 168/72 H 96 11/10/18 04:23 36.4 C L 79 18 161/70 H 97 11/10/18 02:31 83 Laboratory Results Laboratory Results - last 24 hr 11/10/18 05:59 Creatinine 1.02 Est Cr Clr Drug Dosing 52.5 Est GFR ( Amer) 77.9 Est GFR (Non-Af Amer) 67.2 Diagnostic Findings XR chest 1V portable CLINICAL HISTORY: cough, fever dyspnea COMPARISON STUDY: 11/08/2018 FINDINGS: The bones soft tissues and hemidiaphragms are normal. The cardiomediastinal silhouette is normal. The lungs are clear. The pulmonary vasculature is normal. IMPRESSION: Negative chest. Medications Administered Current Inpatient Medications Acetaminophen (Tylenol) 650 mg PO Q4H PRN PRN Reason: Pain or Fever Stop: 12/04/18 21:17 Last Admin: 11/08/18 15:46 Dose: 650 mg Documented by: Alprazolam (Xanax) 0.25 mg PO TID [facility] Stop: 12/04/18 21:17 Last Admin: 11/10/18 08:24 Dose: 0.25 mg Documented by: Amantadine HCl (Symmetrel) 100 mg PO BID [facility] Stop: 12/04/18 21:59 Last Admin: 11/10/18 08:12 Dose: 100 mg Documented by: Amlodipine Besylate (Norvasc) 10 mg PO QAM [facility] Stop: 12/05/18 08:59 Last Admin: 11/10/18 08:12 Dose: 10 mg Documented by: Artificial Tears (Artificial Tears) 1 drops OP BID [facility] Stop: 12/06/18 20:59 Last Admin: 11/10/18 08:15 Dose: 1 dose Documented by: Calcium Carbonate (Tums) 500 mg PO Q6H PRN PRN Reason: Indigestion Stop: 12/09/18 15:43 Last Admin: 11/09/18 16:23 Dose: 500 mg Documented by: Carbidopa/Levodopa (Sinemet 25/100 Mg) 2 tab PO TIDM [facility] Stop: 12/05/18 07:59 Last Admin: 11/10/18 11:15 Dose: 2 tab Documented by: Carbidopa/Levodopa (Sinemet 25/100 Mg) 1 tab PO DAILY@1900 [facility] Stop: 12/05/18 18:59 Last Admin: 11/09/18 20:11 Dose: 1 tab Documented by: Carbidopa/Levodopa (Sinement Cr 25/100mg) 1 tab PO HS [facility] Stop: 12/04/18 22:29 Last Admin: 11/09/18 20:44 Dose: 1 tab Documented by: Heparin Sodium (Porcine) (Heparin Sodium (Porcine)) 5,000 units SQ Q12 [facility] Stop: 12/04/18 21:59 Last Admin: 11/10/18 08:15 Dose: 5,000 units Documented by: Ampicillin Sodium 1,000 mg/ (Sodium Chloride) 50 mls @ 100 mls/hr IV Q6H [facility] Stop: 11/19/18 15:59 Last Infusion: 11/10/18 11:40 Dose: Infused Documented by: Losartan Potassium (Cozaar) 50 mg PO QAM [facility] Stop: 12/05/18 08:59 Last Admin: 11/10/18 08:13 Dose: 50 mg Documented by: Raspberry (Raspberry) 5 ml PO Q6 [facility] Stop: 11/23/18 11:59 Last Admin: 11/10/18 11:14 Dose: 5 ml Documented by: Sennosides (Senokot) 17.2 mg PO QAM [facility] Stop: 12/07/18 08:59 Last Admin: 11/10/18 08:14 Dose: Not Given Documented by: Vancomycin HCl (Vancomycin Hcl) 125 mg PO Q6 [facility] Stop: 11/19/18 11:59 Last Admin: 11/10/18 11:14 Dose: 125 mg Documented by: PG Care Time/CCT Total # of Minutes Spent Total Time Spent with Patient: Total time spent is greater than 50% in coordination of care (as documented) at patient's floor/unit and/or counseling patient: (1) UTI (urinary tract infection) Urinary tract infection type: acute cystitis Hematuria presence: without hematuria Qualified Code(s): N30.00 - Acute cystitis without hematuria (2) Macular degeneration Macular degeneration type: unspecified type Eye laterality: unspecified Qualified Code(s): H35.30 - Unspecified macular degeneration (3) Hypertension Hypertension type: essential hypertension Qualified Code(s): I10 - Essential (primary) hypertension (4) Constipation Constipation type: other constipation type Qualified Code(s): K59.09 - Other constipation
[2018-11-10] MEDS ORDERED: VANCOMYCIN TROUGH ONE (21:30)
[2018-11-10] MEDS: CARBIDOPA/LEVODOPA 25/100MG EXT REL TAB PO SCH (22:00)
[2018-11-11] MEDS: AMPICILLIN 1,000 MG in SODIUM CHLOR 0.9% AD-VAN 50 ML IV SCH ×4 (04:39→21:12)
[2018-11-11] MEDS: RASPBERRY SYRUP 5 ML UDP PO SCH ×4 (05:45→23:51)
[2018-11-11] MEDS: VANCOMYCIN HCL 125 MG/2.5ML SOLN PO SCH ×4 (05:45→23:51)
[2018-11-11 06:54] LABS: Creatinine Clr Calc Pharmacy 56.6 ml/min; Est GFR (African American) 85.9; Est GFR (Non-African American) 74.2
[2018-11-11] MEDS: CARBIDOPA/LEVODOPA 25/100MG TAB PO SCH ×4 (07:53→19:11)
[2018-11-11] MEDS: HEPARIN SOD 5,000 UNIT/0.5 ML VIAL SQ SCH ×2 (07:53→21:10)
[2018-11-11] MEDS: LOSARTAN POTASSIUM 50 MG TAB PO SCH (07:53)
[2018-11-11] MEDS: ARTIFICIAL TEARS OP SCH ×2 (07:53→21:09)
[2018-11-11] MEDS: ALPRAZolam 0.25 MG TABLET PO SCH ×3 (07:54→21:07)
[2018-11-11] MEDS: SENNA 8.6 MG TAB PO SCH (07:54)
[2018-11-11] MEDS: AMANTADINE HCL 100 MG CAPSULE PO SCH ×2 (07:54→21:09)
[2018-11-11] MEDS: AMLODIPINE BESYLATE 5 MG TAB PO SCH (07:54)
--- NOTE | 2018-11-11 13:13 | Hospitalist Progress Note ---
Date of Service November 11, 2018 Assessment & Plan (1) UTI (urinary tract infection): several recent UTI that were treated prior to admission UA on admission did not show signs of infection and WBC was normal two days in a row urine culture was sent however and it grew Enterococcus, not VRE fortunately will treat with Ampicillin while inpatient, will need 10 days total due to complicated status today is day 3 stopped IV fluids on 11/10, eating and drinking better (2) C. difficile colitis: diarrhea started in the morning on 11/09 tested positive for C diff toxin and gene treat with Vancomycin 125mg PO q6 no fever, no abdominal pain will need 14 days of Vancomycin past completion of the Ampicillin far less diarrhea the past two days, showing a good clinical response (3) Acute kidney injury: resolved. Cr stable for several days stop IV fluids as PO intake is better (4) Hallucinations: resolved (5) Generalized weakness: acute - 2nd to UTI and dehydration and C diff colitis chronic weakness - 2nd to advanced PD. B12 level wnl. TSH wnl. PT,OT. CT head noted to be negative. plans to take him home with care givers once medically stable she would like home therapy as well (6) Parkinson's disease: advanced, dx 8 years ago in [place]. appreciate neurology consultation by Dr Hayward. no change in medications at this time. PT,OT. treat other comorbidities. (7) Macular degeneration: noted (8) Hypertension: markedly elevated this afternoon will monitor (9) TIA (transient ischemic attack): noted consider aspirin 81mg daily (10) Constipation: resolved, actually with diarrhea now hold on stool softeners and laxatives (11) Chronic kidney disease, stage 3a: Cr 1.0 today (12) DVT prophylaxis: heparin 5000 BID reviewed PT/OT notes max assist for activities would like to take home once medically stable set up with [employer] for therapy and nursing she is looking into increased services for care givers, especially at night anticipate patient being here through the weekend to make sure C diff is controlled Subjective patient stable this morning no major events over night discussed with aide, only a small bowel movement this morning, no large volume stools vitals stable reviewed labs, Cr stable patient eating, participating with therapy Review of Systems Review of Systems: Unobtainable due to cognitive status Physical Exam Constitutional: WD/WN, vitals as above Eyes: PERRL, conjunctivae normal, anicteric sclerae ENMT: external ear and nose normal, oropharynx normal Neck: trachea midline, no thyromegaly Respiratory: normal respiratory effort, lungs clear to auscultation Cardiovascular: RRR, no murmur, no edema Gastrointestinal (Abdomen): normal bowel sounds, soft, nontender, no hepatosplenomegaly Musculoskeletal: no cyanosis or clubbing, extremities motor strength 5/5 Skin: no rashes, warm and dry Neurologic: patellar DTR's 2+ bilat, sensation intact and PERRL, EOMI, accommodation nl, no face palsy, no dysarthria Motor/Sensory: + tremor (resting, bilateral, mild) Psychiatric: Orientation: alert, oriented to person and cooperative; + not oriented to place and + not oriented to time Lymphatic: no cervical or axillary lymphadenopathy Results & Data Vital Signs (Past 12 Hours) Vital Signs Temp Pulse Pulse Resp BP Pulse Ox 11/11/18 11:25 36.7 C 80 18 138/74 99 11/11/18 08:00 78 11/11/18 07:40 36.7 C 88 18 182/65 H 98 11/11/18 03:30 36.8 C 79 20 183/50 H 96 Laboratory Results Laboratory Results - last 24 hr 11/11/18 05:36 Creatinine 0.94 Est Cr Clr Drug Dosing 56.6 Est GFR ( Amer) 85.9 Est GFR (Non-Af Amer) 74.2 Medications Administered Current Inpatient Medications Acetaminophen (Tylenol) 650 mg PO Q4H PRN PRN Reason: Pain or Fever Stop: 12/04/18 21:17 Last Admin: 11/08/18 15:46 Dose: 650 mg Documented by: Alprazolam (Xanax) 0.25 mg PO TID [facility] Stop: 12/04/18 21:17 Last Admin: 11/11/18 07:54 Dose: 0.25 mg Documented by: Amantadine HCl (Symmetrel) 100 mg PO BID [facility] Stop: 12/04/18 21:59 Last Admin: 11/11/18 07:54 Dose: 100 mg Documented by: Amlodipine Besylate (Norvasc) 10 mg PO QAM [facility] Stop: 12/05/18 08:59 Last Admin: 11/11/18 07:54 Dose: 10 mg Documented by: Artificial Tears (Artificial Tears) 1 drops OP BID [facility] Stop: 12/06/18 20:59 Last Admin: 11/11/18 07:53 Dose: 1 dose Documented by: Calcium Carbonate (Tums) 500 mg PO Q6H PRN PRN Reason: Indigestion Stop: 12/09/18 15:43 Last Admin: 11/09/18 16:23 Dose: 500 mg Documented by: Carbidopa/Levodopa (Sinemet 25/100 Mg) 2 tab PO TIDM [facility] Stop: 12/05/18 07:59 Last Admin: 11/11/18 11:12 Dose: 2 tab Documented by: Carbidopa/Levodopa (Sinemet 25/100 Mg) 1 tab PO DAILY@1900 [facility] Stop: 12/05/18 18:59 Last Admin: 11/10/18 20:02 Dose: 1 tab Documented by: Carbidopa/Levodopa (Sinement Cr 25/100mg) 1 tab PO HS [facility] Stop: 12/04/18 22:29 Last Admin: 11/10/18 22:00 Dose: 1 tab Documented by: Heparin Sodium (Porcine) (Heparin Sodium (Porcine)) 5,000 units SQ Q12 [facility] Stop: 12/04/18 21:59 Last Admin: 11/11/18 07:53 Dose: 5,000 units Documented by: Ampicillin Sodium 1,000 mg/ (Sodium Chloride) 50 mls @ 100 mls/hr IV Q6H [facility] Stop: 11/19/18 15:59 Last Infusion: 11/11/18 11:54 Dose: Infused Documented by: Losartan Potassium (Cozaar) 50 mg PO QAM [facility] Stop: 12/05/18 08:59 Last Admin: 11/11/18 07:53 Dose: 50 mg Documented by: Raspberry (Raspberry) 5 ml PO Q6 [facility] Stop: 11/23/18 11:59 Last Admin: 11/11/18 11:12 Dose: 5 ml Documented by: Sennosides (Senokot) 17.2 mg PO QAM [facility] Stop: 12/07/18 08:59 Last Admin: 11/11/18 07:54 Dose: 17.2 mg Documented by: Vancomycin HCl (Vancomycin Hcl) 125 mg PO Q6 [facility] Stop: 11/19/18 11:59 Last Admin: 11/11/18 11:12 Dose: 125 mg Documented by: PG Care Time/CCT Total # of Minutes Spent Total Time Spent with Patient: Total time spent is greater than 50% in coordination of care (as documented) at patient's floor/unit and/or counseling patient: (1) UTI (urinary tract infection) Hematuria presence: without hematuria Urinary tract infection type: acute cystitis Qualified Code(s): N30.00 - Acute cystitis without hematuria (2) Hypertension Hypertension type: essential hypertension Qualified Code(s): I10 - Essential (primary) hypertension (3) Macular degeneration Eye laterality: unspecified Macular degeneration type: unspecified type Qualified Code(s): H35.30 - Unspecified macular degeneration (4) Constipation Constipation type: other constipation type Qualified Code(s): K59.09 - Other constipation
[2018-11-11] MEDS ORDERED: CHLORPROMAZINE HCL 25 MG TABLET PO ONE (14:42)
[2018-11-11] MEDS: CARBIDOPA/LEVODOPA 25/100MG EXT REL TAB PO SCH (21:08)
[2018-11-11] MEDS: CHLORPROMAZINE HCL 25 MG TABLET PO SCH (21:09)
[2018-11-12] MEDS: AMPICILLIN 1,000 MG in SODIUM CHLOR 0.9% AD-VAN 50 ML IV SCH ×4 (04:13→21:37)
[2018-11-12] MEDS: RASPBERRY SYRUP 5 ML UDP PO SCH ×4 (05:37→23:38)
[2018-11-12] MEDS: VANCOMYCIN HCL 125 MG/2.5ML SOLN PO SCH ×4 (05:37→23:38)
[2018-11-12 06:24] LABS: Basophils # (auto) 0.02 K/uL (0-0.2); Basophils % (auto) 0.2 %; Eosinophils # (auto) 0.56 K/uL (0-0.5); Eosinophils % (auto) 6.5 %; Hematocrit (blood only) 30.8 % (42-52); Immature Granulocytes # (auto) 0.04 K/uL (0.00-0.02); Immature Granulocytes % (auto) 0.5 %; Lymphocytes # (auto) 1.19 K/uL (1.2-3.4); Lymphocytes % (auto) 13.7 %; Mean Corpuscular Hgb Conc 32.5 g/dL (32-36); Mean Platelet Volume 9.5 fL (7.4-10.4); Monocytes # (auto) 0.81 K/uL (0.11-0.59); Monocytes % (auto) 9.4 %; Neutrophils # (auto) 6.04 K/uL (1.4-6.5); Neutrophils % (auto) 69.7 %; Platelet Count 207 K/uL (130-400); RDW Coefficient of Variation 13.1 % (11.5-14.5); RDW Standard Deviation 46.6 fL (36.4-46.3); Red Blood Count 3.21 M/uL (4.7-6.1); White Blood Count 8.66 K/uL (4.8-10.8)
[2018-11-12] MEDS: ARTIFICIAL TEARS OP SCH ×2 (07:58→21:26)
[2018-11-12] MEDS: CARBIDOPA/LEVODOPA 25/100MG TAB PO SCH ×4 (07:58→19:00)
[2018-11-12] MEDS: LOSARTAN POTASSIUM 50 MG TAB PO SCH (07:58)
[2018-11-12] MEDS: SENNA 8.6 MG TAB PO SCH (07:59)
[2018-11-12] MEDS: AMANTADINE HCL 100 MG CAPSULE PO SCH ×2 (07:59→21:27)
[2018-11-12] MEDS: ALPRAZolam 0.25 MG TABLET PO SCH ×3 (07:59→21:26)
[2018-11-12] MEDS: AMLODIPINE BESYLATE 5 MG TAB PO SCH (07:59)
[2018-11-12] MEDS: CHLORPROMAZINE HCL 25 MG TABLET PO SCH ×3 (07:59→21:28)
[2018-11-12] MEDS: HEPARIN SOD 5,000 UNIT/0.5 ML VIAL SQ SCH ×2 (07:59→21:27)
--- NOTE | 2018-11-12 12:31 | Hospitalist Progress Note ---
Date of Service November 12, 2018 Assessment & Plan (1) UTI (urinary tract infection): several recent UTI that were treated prior to admission UA on admission did not show signs of infection and WBC was normal two days in a row urine culture was sent however and it grew Enterococcus, not VRE fortunately will treat with Ampicillin while inpatient, will need 10 days total due to complicated status today is day 4 stopped IV fluids on 11/10, eating and drinking better will transition to PO ampicillin on discharge (2) C. difficile colitis: diarrhea started in the morning on 11/09 tested positive for C diff toxin and gene treat with Vancomycin 125mg PO q6 no fever, no abdominal pain will need 14 days of Vancomycin past completion of the Ampicillin no diarrhea for two days, showing a good clinical response (3) Hiccups: ongoing issue for a few days, thought is was GERD trying Thorazine, no response yet if no response by tomorrow then would stop (4) Acute kidney injury: resolved. Cr stable for several days stop IV fluids as PO intake is better (5) Hallucinations: resolved (6) Generalized weakness: acute - 2nd to UTI and dehydration and C diff colitis chronic weakness - 2nd to advanced PD. B12 level wnl. TSH wnl. PT,OT. CT head noted to be negative. plans to take him home with care givers once medically stable she would like home therapy as well per RN, he is really weak today, may want to consider SNF rehab (7) Parkinson's disease: advanced, dx 8 years ago in [place]. appreciate neurology consultation by Dr Hayward. no change in medications at this time. PT,OT. treat other comorbidities. (8) Macular degeneration: noted (9) Hypertension: markedly elevated this afternoon will monitor (10) TIA (transient ischemic attack): noted consider aspirin 81mg daily (11) Constipation: resolved, actually with diarrhea now hold on stool softeners and laxatives (12) Chronic kidney disease, stage 3a: Cr 1.0 today (13) DVT prophylaxis: heparin 5000 BID reviewed PT/OT notes max assist for activities would like to take home once medically stable set up with [employer] for therapy and nursing she is looking into increased services for care givers, especially at night anticipate patient being here through the weekend to make sure C diff is controlled Subjective patient still with hiccups, added some thorazine yesterday would only use for today due to potential extra-pyramidal side effects no diarrhea now for two days, no abdominal pain reviewed labs, WBC down to 8k from 22k, no fever, breathing well, no cough per RN, patient is very weak, concerned that he will have a difficult time going home will discuss with patient's Review of Systems Review of Systems: Unobtainable due to cognitive status Physical Exam Constitutional: WD/WN, vitals as above (more alert and talkative today) Eyes: PERRL, conjunctivae normal, anicteric sclerae ENMT: external ear and nose normal, oropharynx normal Neck: trachea midline, no thyromegaly Respiratory: normal respiratory effort, lungs clear to auscultation Cardiovascular: RRR, no murmur, no edema Gastrointestinal (Abdomen): normal bowel sounds, soft, nontender, no hepato splenomegaly Musculoskeletal: no cyanosis or clubbing, extremities motor strength 5/5 Skin: no rashes, warm and dry Neurologic: patellar DTR's 2+ bilat, sensation intact and PERRL, EOMI, accommodation nl, no face palsy, no dysarthria Motor/Sensory: + tremor ( resting, bilateral, mild) Psychiatric: Orientation: alert, oriented to person, oriented to place and cooperative; + not oriented to time Lymphatic: no cervical or axillary lymphadenopathy Results & Data Vital Signs (Past 12 Hours) Vital Signs Temp Pulse Pulse Resp BP BP Pulse Ox 11/12/18 11:20 36.9 C 84 18 127/55 L 96 11/12/18 09:51 86 11/12/18 07:22 36.5 C 85 16 160/63 H 96 11/12/18 04:00 36.9 C 82 20 100/55 L 96 Laboratory Results Laboratory Results - last 24 hr 11/12/18 06:12 WBC 8.66 RBC 3.21 L Hgb 10.0 L Hct 30.8 L MCV 96.0 MCH 31.2 MCHC 32.5 RDW Std Deviation 46.6 H RDW Coeff of Alo 13.1 Plt Count 207 MPV 9.5 Immature Gran % (Auto) 0.5 Neut % (Auto) 69.7 Lymph % (Auto) 13.7 Lyon % (Auto) 9.4 Eos % (Auto) 6.5 Baso % (Auto) 0.2 Immature Gran # (Auto) 0.04 H Neut # (Auto) 6.04 Lymph # (Auto) 1.19 L Lyon # (Auto) 0.81 H Eos # (Auto) 0.56 H Baso # (Auto) 0.02 Medications Administered Current Inpatient Medications Acetaminophen (Tylenol) 650 mg PO Q4H PRN PRN Reason: Pain or Fever Stop: 12/04/18 21:17 Last Admin: 11/08/18 15:46 Dose: 650 mg Documented by: Alprazolam (Xanax) 0.25 mg PO TID [facility] Stop: 12/04/18 21:17 Last Admin: 11/12/18 07:59 Dose: 0.25 mg Documented by: Amantadine HCl (Symmetrel) 100 mg PO BID [facility] Stop: 12/04/18 21:59 Last Admin: 11/12/18 07:59 Dose: 100 mg Documented by: Amlodipine Besylate (Norvasc) 10 mg PO QAM [facility] Stop: 12/05/18 08:59 Last Admin: 11/12/18 07:59 Dose: 10 mg Documented by: Artificial Tears (Artificial Tears) 1 drops OP BID [facility] Stop: 12/06/18 20:59 Last Admin: 11/12/18 07:58 Dose: 1 dose Documented by: Calcium Carbonate (Tums) 500 mg PO Q6H PRN PRN Reason: Indigestion Stop: 12/09/18 15:43 Last Admin: 11/09/18 16:23 Dose: 500 mg Documented by: Carbidopa/Levodopa (Sinemet 25/100 Mg) 2 tab PO TIDM [facility] Stop: 12/05/18 07:59 Last Admin: 11/12/18 11:00 Dose: 2 tab Documented by: Carbidopa/Levodopa (Sinemet 25/100 Mg) 1 tab PO DAILY@1900 [facility] Stop: 12/05/18 18:59 Last Admin: 11/11/18 19:11 Dose: 1 tab Documented by: Carbidopa/Levodopa (Sinement Cr 25/100mg) 1 tab PO HS [facility] Stop: 12/04/18 22:29 Last Admin: 11/11/18 21:08 Dose: 1 tab Documented by: Chlorpromazine HCl (Thorazine) 25 mg PO TID [facility] Stop: 12/11/18 20:59 Last Admin: 11/12/18 07:59 Dose: 25 mg Documented by: Heparin Sodium (Porcine) (Heparin Sodium (Porcine)) 5,000 units SQ Q12 [facility] Stop: 12/04/18 21:59 Last Admin: 11/12/18 07:59 Dose: 5,000 units Documented by: Ampicillin Sodium 1,000 mg/ (Sodium Chloride) 50 mls @ 100 mls/hr IV Q6H [facility] Stop: 11/19/18 15:59 Last Infusion: 11/12/18 11:48 Dose: Infused Documented by: Losartan Potassium (Cozaar) 50 mg PO QAM [facility] Stop: 12/05/18 08:59 Last Admin: 11/12/18 07:58 Dose: 50 mg Documented by: Raspberry (Raspberry) 5 ml PO Q6 [facility] Stop: 11/23/18 11:59 Last Admin: 11/12/18 11:00 Dose: 5 ml Documented by: Sennosides (Senokot) 17.2 mg PO QAM [facility] Stop: 12/07/18 08:59 Last Admin: 11/12/18 07:59 Dose: 17.2 mg Documented by: Vancomycin HCl (Vancomycin Hcl) 125 mg PO Q6 [facility] Stop: 11/19/18 11:59 Last Admin: 11/12/18 11:00 Dose: 125 mg Documented by: PG Care Time/CCT Total # of Minutes Spent Total Time Spent with Patient: Total time spent is greater than 50% in coordination of care (as documented) at patient's floor/unit and/or counseling patient: (1) UTI (urinary tract infection) Urinary tract infection type: acute cystitis Hematuria presence: without hematuria Qualified Code(s): N30.00 - Acute cystitis without hematuria (2) Macular degeneration Macular degeneration type: unspecified type Eye laterality: unspecified Qualified Code(s): H35.30 - Unspecified macular degeneration (3) Hypertension Hypertension type: essential hypertension Qualified Code(s): I10 - Essential (primary) hypertension (4) Constipation Constipation type: other constipation type Qualified Code(s): K59.09 - Other constipation
[2018-11-12] MEDS: CARBIDOPA/LEVODOPA 25/100MG EXT REL TAB PO SCH (21:26)
[2018-11-13] MEDS: AMPICILLIN 1,000 MG in SODIUM CHLOR 0.9% AD-VAN 50 ML IV SCH ×4 (04:38→20:43)
[2018-11-13] MEDS: CALCIUM CARBONATE 500 MG CHEWABLE TAB PO PRN (04:39)
[2018-11-13] MEDS: VANCOMYCIN HCL 125 MG/2.5ML SOLN PO SCH ×3 (05:47→17:02)
[2018-11-13] MEDS: RASPBERRY SYRUP 5 ML UDP PO SCH ×3 (05:47→17:06)
[2018-11-13] MEDS: CARBIDOPA/LEVODOPA 25/100MG TAB PO SCH ×4 (08:14→18:35)
[2018-11-13] MEDS: ARTIFICIAL TEARS OP SCH ×2 (08:14→20:30)
[2018-11-13] MEDS: AMANTADINE HCL 100 MG CAPSULE PO SCH ×2 (08:15→20:33)
[2018-11-13] MEDS: LOSARTAN POTASSIUM 50 MG TAB PO SCH (08:15)
[2018-11-13] MEDS: SENNA 8.6 MG TAB PO SCH (08:15)
[2018-11-13] MEDS: CHLORPROMAZINE HCL 25 MG TABLET PO SCH ×3 (08:15→20:32)
[2018-11-13] MEDS: ALPRAZolam 0.25 MG TABLET PO SCH ×3 (08:15→20:40)
[2018-11-13] MEDS: AMLODIPINE BESYLATE 5 MG TAB PO SCH (08:15)
[2018-11-13] MEDS: HEPARIN SOD 5,000 UNIT/0.5 ML VIAL SQ SCH ×2 (08:15→20:31)
--- NOTE | 2018-11-13 10:25 | Hospitalist Progress Note ---
Date of Service November 13, 2018 Assessment & Plan (1) UTI (urinary tract infection): several recent UTI that were treated prior to admission UA on admission did not show signs of infection and WBC was normal two days in a row urine culture was sent however and it grew Enterococcus, not VRE fortunately will treat with Ampicillin while inpatient, will need 10 days total due to complicated status today is day 5 stopped IV fluids on 11/10, eating and drinking better will transition to PO antibiotics on discharge (2) C. difficile colitis: diarrhea started in the morning on 11/09 tested positive for C diff toxin and gene treat with Vancomycin 125mg PO q6 no fever, no abdominal pain will need 14 days of Vancomycin past completion of the antibiotics no diarrhea for three days, showing a good clinical response WBC down to 8k from 22k (3) Hiccups: ongoing issue for a few days, thought is was GERD trying Thorazine, no response yet will stop for now (4) Acute kidney injury: resolved. Cr stable for several days stop IV fluids as PO intake is better (5) Hallucinations: resolved (6) Generalized weakness: acute - 2nd to UTI and dehydration and C diff colitis chronic weakness - 2nd to advanced PD. B12 level wnl. TSH wnl. PT,OT. CT head noted to be negative. d/w on 11/12, plan for rehab at [facility] (7) Parkinson's disease: advanced, dx 8 years ago in [place]. appreciate neurology consultation by Dr Hayward. no change in medications at this time. PT,OT. treat other comorbidities. (8) Macular degeneration: noted (9) Hypertension: stable (10) TIA (transient ischemic attack): noted consider aspirin 81mg daily (11) Constipation: resolved (12) Chronic kidney disease, stage 3a: Cr has been stable for most of the week (13) DVT prophylaxis: heparin 5000 BID reviewed PT/OT notes max assist for activities plans to rehab at [facility] bed available on Thursday Subjective patient laying in bed, stable no acute issues over night ate breakfast this morning discussed situation with yesterday, plan for [facility] patient is too weak to go home at this point, needs rehab d/w JIMI [facility] can accept on Thursday vitals stable, no fever, no diarrhea Review of Systems Review of Systems: Unobtainable due to cognitive status Physical Exam Constitutional: WD/WN, vitals as above Eyes: PERRL, conjunctivae normal, anicteric sclerae ENMT: external ear and nose normal, oropharynx normal Neck: trachea midline, no thyromegaly Respiratory: normal respiratory effort, lungs clear to auscultation Cardiovascular: RRR, no murmur, no edema Gastrointestinal (Abdomen): normal bowel sounds, soft, nontender, no hepatosplenomegaly Musculoskeletal: no cyanosis or clubbing, extremities motor strength 5/5 Skin: no rashes, warm and dry Neurologic: patellar DTR's 2+ bilat, sensation intact and PERRL, EOMI, accommodation nl, no face palsy, no dysarthria Motor/Sensory: + tremor (resting, bilateral, mild) Psychiatric: Orientation: alert, oriented to person, oriented to place and cooperative; + not oriented to time Lymphatic: no cervical or axillary lymphadenopathy Results & Data Vital Signs (Past 12 Hours) Vital Signs Temp Pulse Pulse Resp BP Pulse Ox 11/13/18 08:30 89 11/13/18 06:55 37.2 C 90 20 160/70 H 95 11/13/18 04:00 37.2 C 93 H 17 160/64 H 93 11/13/18 01:06 89 11/13/18 00:20 79 11/12/18 23:00 37.0 C 93 H 20 149/65 H 95 Medications Administered Current Inpatient Medications Acetaminophen (Tylenol) 650 mg PO Q4H PRN PRN Reason: Pain or Fever Stop: 12/04/18 21:17 Last Admin: 11/08/18 15:46 Dose: 650 mg Documented by: Alprazolam (Xanax) 0.25 mg PO TID [facility] Stop: 12/04/18 21:17 Last Admin: 11/13/18 08:15 Dose: 0.25 mg Documented by: Amantadine HCl (Symmetrel) 100 mg PO BID [facility] Stop: 12/04/18 21:59 Last Admin: 11/13/18 08:15 Dose: 100 mg Documented by: Amlodipine Besylate (Norvasc) 10 mg PO QAM [facility] Stop: 12/05/18 08:59 Last Admin: 11/13/18 08:15 Dose: 10 mg Documented by: Artificial Tears (Artificial Tears) 1 drops OP BID [facility] Stop: 12/06/18 20:59 Last Admin: 11/13/18 08:14 Dose: 1 dose Documented by: Calcium Carbonate (Tums) 500 mg PO Q6H PRN PRN Reason: Indigestion Stop: 12/09/18 15:43 Last Admin: 11/13/18 04:39 Dose: 500 mg Documented by: Carbidopa/Levodopa (Sinemet 25/100 Mg) 2 tab PO TIDM [facility] Stop: 12/05/18 07:59 Last Admin: 11/13/18 08:14 Dose: 2 tab Documented by: Carbidopa/Levodopa (Sinemet 25/100 Mg) 1 tab PO DAILY@1900 [facility] Stop: 12/05/18 18:59 Last Admin: 11/12/18 19:00 Dose: 1 tab Documented by: Carbidopa/Levodopa (Sinement Cr 25/100mg) 1 tab PO HS [facility] Stop: 12/04/18 22:29 Last Admin: 11/12/18 21:26 Dose: 1 tab Documented by: Chlorpromazine HCl (Thorazine) 25 mg PO TID [facility] Stop: 12/11/18 20:59 Last Admin: 11/13/18 08:15 Dose: 25 mg Documented by: Heparin Sodium (Porcine) (Heparin Sodium (Porcine)) 5,000 units SQ Q12 [facility] Stop: 12/04/18 21:59 Last Admin: 11/13/18 08:15 Dose: 5,000 units Documented by: Ampicillin Sodium 1,000 mg/ (Sodium Chloride) 50 mls @ 100 mls/hr IV Q6H [facility] Stop: 11/19/18 15:59 Last Infusion: 11/13/18 05:10 Dose: Infused Documented by: Losartan Potassium (Cozaar) 50 mg PO QAM [facility] Stop: 12/05/18 08:59 Last Admin: 11/13/18 08:15 Dose: 50 mg Documented by: Raspberry (Raspberry) 5 ml PO Q6 [facility] Stop: 11/23/18 11:59 Last Admin: 11/13/18 05:47 Dose: 5 ml Documented by: Sennosides (Senokot) 17.2 mg PO QAM [facility] Stop: 12/07/18 08:59 Last Admin: 11/13/18 08:15 Dose: 17.2 mg Documented by: Vancomycin HCl (Vancomycin Hcl) 125 mg PO Q6 [facility] Stop: 11/19/18 11:59 Last Admin: 11/13/18 05:47 Dose: 125 mg Documented by: PG Care Time/CCT Total # of Minutes Spent Total Time Spent with Patient: Total time spent is greater than 50% in coordination of care (as documented) at patient's floor/unit and/or counseling patient: (1) UTI (urinary tract infection) Urinary tract infection type: acute cystitis Hematuria presence: without hematuria Qualified Code(s): N30.00 - Acute cystitis without hematuria (2) Macular degeneration Macular degeneration type: unspecified type Eye laterality: unspecified Qualified Code(s): H35.30 - Unspecified macular degeneration (3) Hypertension Hypertension type: essential hypertension Qualified Code(s): I10 - Essential (primary) hypertension (4) Constipation Constipation type: other constipation type Qualified Code(s): K59.09 - Other constipation
[2018-11-13] MEDS: CARBIDOPA/LEVODOPA 25/100MG EXT REL TAB PO SCH (20:33)
[2018-11-14] MEDS: RASPBERRY SYRUP 5 ML UDP PO SCH ×5 (00:38→23:19)
[2018-11-14] MEDS: VANCOMYCIN HCL 125 MG/2.5ML SOLN PO SCH ×5 (00:38→23:19)
[2018-11-14] MEDS: AMPICILLIN 1,000 MG in SODIUM CHLOR 0.9% AD-VAN 50 ML IV SCH ×4 (03:56→23:04)
[2018-11-14] MEDS: HEPARIN SOD 5,000 UNIT/0.5 ML VIAL SQ SCH ×2 (08:06→20:43)
[2018-11-14] MEDS: ARTIFICIAL TEARS OP SCH ×2 (08:06→20:43)
[2018-11-14] MEDS: CHLORPROMAZINE HCL 25 MG TABLET PO SCH ×3 (08:06→20:42)
[2018-11-14] MEDS: AMANTADINE HCL 100 MG CAPSULE PO SCH ×2 (08:06→20:43)
[2018-11-14] MEDS: SENNA 8.6 MG TAB PO SCH (08:06)
[2018-11-14] MEDS: AMLODIPINE BESYLATE 5 MG TAB PO SCH (08:06)
[2018-11-14] MEDS: CARBIDOPA/LEVODOPA 25/100MG TAB PO SCH ×4 (08:06→19:09)
[2018-11-14] MEDS: ALPRAZolam 0.25 MG TABLET PO SCH ×3 (08:06→20:48)
[2018-11-14] MEDS: LOSARTAN POTASSIUM 50 MG TAB PO SCH (08:06)
[2018-11-14 08:27] LABS: Hematocrit (blood only) 30.3 % (42-52); Mean Corpuscular Volume 96.2 fL (80-100); Mean Platelet Volume 9.4 fL (7.4-10.4); Platelet Count 262 K/uL (130-400); RDW Coefficient of Variation 13.4 % (11.5-14.5); RDW Standard Deviation 46.8 fL (36.4-46.3); Red Blood Count 3.15 M/uL (4.7-6.1); White Blood Count 12.72 K/uL (4.8-10.8)
[2018-11-14 08:57] LABS: BUN Creatinine Ratio 30.1 (10-20); Calcium 8.8 mg/dl (8.5-10.1); Creatinine Clr Calc Pharmacy 44.2 ml/min; Est GFR (African American) 61.5; Est GFR (Non-African American) 53.1
--- NOTE | 2018-11-14 10:22 | Hospitalist Progress Note ---
Date of Service November 14, 2018 Assessment & Plan (1) UTI (urinary tract infection): several recent UTI that were treated prior to admission UA on admission did not show signs of infection and WBC was normal two days in a row urine culture was sent however and it grew Enterococcus, not VRE fortunately will treat with Ampicillin while inpatient, will need 10 days total due to complicated status today is day 6 stopped IV fluids on 11/10, eating and drinking better will transition to PO antibiotics on discharge, plan for Amoxicillin, last day of abx would be 11/17 (2) C. difficile colitis: diarrhea started in the morning on 11/09 tested positive for C diff toxin and gene treat with Vancomycin 125mg PO q6 no fever, no abdominal pain will need 14 days of Vancomycin past completion of the antibiotics no diarrhea for 4 days, showing a good clinical response WBC down to 12k from 22k last day of Vancomycin would be 12/01 (3) Hiccups: ongoing issue for a few days, thought is was GERD tried Thorazine, minimal response hold on further treatment (4) Acute kidney injury: resolved. Cr stable for several days stop IV fluids as PO intake is better (5) Hallucinations: resolved (6) Generalized weakness: acute - 2nd to UTI and dehydration and C diff colitis chronic weakness - 2nd to advanced PD. B12 level wnl. TSH wnl. PT,OT. CT head noted to be negative. d/w on 11/12, plan for rehab at [facility] (7) Parkinson's disease: advanced, dx 8 years ago in [place]. appreciate neurology consultation by Dr Hayward. no change in medications at this time. PT,OT. treat other comorbidities. (8) Macular degeneration: noted (9) Hypertension: stable (10) TIA (transient ischemic attack): noted consider aspirin 81mg daily (11) Constipation: resolved (12) Chronic kidney disease, stage 3a: Cr has been stable for most of the week (13) DVT prophylaxis: heparin 5000 BID reviewed PT/OT notes max assist for activities plans to rehab at [facility] bed available on Thursday Plan: discharge on Amoxicillin 875mg BID until 11/17, Vancomycin 125mg PO QID until 12/01 Subjective patient feeling fine today, no acute issues vitals stable, no fever no abdominal pain, no diarrhea, no dyspnea plan for rehab tomorrow Review of Systems Review of Systems: Unobtainable due to cognitive status Physical Exam Constitutional: WD/WN, vitals as above + diaphoretic Eyes: PERRL, conjunctivae normal, anicteric sclerae ENMT: external ear and nose normal, oropharynx normal Neck: trachea midline, no thyromegaly Respiratory: normal respiratory effort, lungs clear to auscultation Cardiovascular: RRR, no murmur, no edema Gastrointestinal (Abdomen): normal bowel sounds, soft, nontender, no hepatosplenomegaly Musculoskeletal: no cyanosis or clubbing, extremities motor strength 5/5 Skin: no rashes, warm and dry Neurologic: patellar DTR's 2+ bilat, sensation intact and PERRL, EOMI, accommodation nl, no face palsy, no dysarthria Motor/Sensory: + tremor (resting, bilateral, mild) Psychiatric: Orientation: alert, oriented to person, oriented to place and cooperative; + not oriented to time Lymphatic: no cervical or axillary lymphadenopathy Results & Data Vital Signs (Past 12 Hours) Vital Signs Temp Pulse Pulse Resp BP Pulse Ox 11/14/18 09:18 96 H 11/14/18 07:32 37.1 C 92 H 18 159/62 H 97 11/14/18 03:20 92 H 11/14/18 03:00 37.5 C 90 18 163/66 H 93 11/13/18 23:05 37.2 C 98 H 16 151/53 H 92 Laboratory Results Laboratory Results - last 24 hr 11/14/18 11/14/18 11/14/18 08:14 08:14 09:06 WBC 12.72 H RBC 3.15 L Hgb 10.0 L Hct 30.3 L MCV 96.2 MCH 31.7 MCHC 33.0 RDW Std Deviation 46.8 H RDW Coeff of Alo 13.4 Plt Count 262 MPV 9.4 Sodium 144 Potassium 4.1 Chloride 111 H Carbon Dioxide 25 Anion Gap 8.0 BUN 37 H Creatinine 1.24 Est Cr Clr Drug Dosing 44.2 Est GFR ( Amer) 61.5 Est GFR (Non-Af Amer) 53.1 BUN/Creatinine Ratio 30.1 H Glucose 126 H Calcium 8.8 Medications Administered Current Inpatient Medications Acetaminophen (Tylenol) 650 mg PO Q4H PRN PRN Reason: Pain or Fever Stop: 12/04/18 21:17 Last Admin: 11/08/18 15:46 Dose: 650 mg Documented by: Alprazolam (Xanax) 0.25 mg PO TID [facility] Stop: 12/04/18 21:17 Last Admin: 11/14/18 08:06 Dose: 0.25 mg Documented by: Amantadine HCl (Symmetrel) 100 mg PO BID [facility] Stop: 12/04/18 21:59 Last Admin: 11/14/18 08:06 Dose: 100 mg Documented by: Amlodipine Besylate (Norvasc) 10 mg PO QAM [facility] Stop: 12/05/18 08:59 Last Admin: 11/14/18 08:06 Dose: 10 mg Documented by: Artificial Tears (Artificial Tears) 1 drops OP BID [facility] Stop: 12/06/18 20:59 Last Admin: 11/14/18 08:06 Dose: 1 dose Documented by: Calcium Carbonate (Tums) 500 mg PO Q6H PRN PRN Reason: Indigestion Stop: 12/09/18 15:43 Last Admin: 11/13/18 04:39 Dose: 500 mg Documented by: Carbidopa/Levodopa (Sinemet 25/100 Mg) 2 tab PO TIDM [facility] Stop: 12/05/18 07:59 Last Admin: 11/14/18 08:06 Dose: 2 tab Documented by: Carbidopa/Levodopa (Sinemet 25/100 Mg) 1 tab PO DAILY@1900 [facility] Stop: 12/05/18 18:59 Last Admin: 11/13/18 18:35 Dose: 1 tab Documented by: Carbidopa/Levodopa (Sinement Cr 25/100mg) 1 tab PO HS [facility] Stop: 12/04/18 22:29 Last Admin: 11/13/18 20:33 Dose: 1 tab Documented by: Chlorpromazine HCl (Thorazine) 25 mg PO TID [facility] Stop: 12/11/18 20:59 Last Admin: 11/14/18 08:06 Dose: 25 mg Documented by: Heparin Sodium (Porcine) (Heparin Sodium (Porcine)) 5,000 units SQ Q12 [facility] Stop: 12/04/18 21:59 Last Admin: 11/14/18 08:06 Dose: 5,000 units Documented by: Ampicillin Sodium 1,000 mg/ (Sodium Chloride) 50 mls @ 100 mls/hr IV Q6H [facility] Stop: 11/19/18 15:59 Last Infusion: 11/14/18 04:30 Dose: Infused Documented by: Losartan Potassium (Cozaar) 50 mg PO QAM [facility] Stop: 12/05/18 08:59 Last Admin: 11/14/18 08:06 Dose: 50 mg Documented by: Raspberry (Raspberry) 5 ml PO Q6 [facility] Stop: 11/23/18 11:59 Last Admin: 11/14/18 05:48 Dose: 5 ml Documented by: Sennosides (Senokot) 17.2 mg PO QAM [facility] Stop: 12/07/18 08:59 Last Admin: 11/14/18 08:06 Dose: 17.2 mg Documented by: Vancomycin HCl (Vancomycin Hcl) 125 mg PO Q6 [facility] Stop: 11/19/18 11:59 Last Admin: 11/14/18 05:48 Dose: 125 mg Documented by: PG Care Time/CCT Total # of Minutes Spent Total Time Spent with Patient: Total time spent is greater than 50% in coordination of care (as documented) at patient's floor/unit and/or counseling patient: (1) UTI (urinary tract infection) Urinary tract infection type: acute cystitis Hematuria presence: without hematuria Qualified Code(s): N30.00 - Acute cystitis without hematuria (2) Macular degeneration Macular degeneration type: unspecified type Eye laterality: unspecified Qualified Code(s): H35.30 - Unspecified macular degeneration (3) Hypertension Hypertension type: essential hypertension Qualified Code(s): I10 - Essential (primary) hypertension (4) Constipation Constipation type: other constipation type Qualified Code(s): K59.09 - Other constipation
[2018-11-14] MEDS: CARBIDOPA/LEVODOPA 25/100MG EXT REL TAB PO SCH (20:41)
[2018-11-15] MEDS: AMPICILLIN 1,000 MG in SODIUM CHLOR 0.9% AD-VAN 50 ML IV SCH ×2 (03:23→11:09)
[2018-11-15] MEDS: VANCOMYCIN HCL 125 MG/2.5ML SOLN PO SCH ×2 (05:00→11:09)
[2018-11-15] MEDS: RASPBERRY SYRUP 5 ML UDP PO SCH ×2 (05:00→11:09)
[2018-11-15] MEDS: ARTIFICIAL TEARS OP SCH (08:06)
[2018-11-15] MEDS: AMLODIPINE BESYLATE 5 MG TAB PO SCH (08:06)
[2018-11-15] MEDS: LOSARTAN POTASSIUM 50 MG TAB PO SCH (08:06)
[2018-11-15] MEDS: CARBIDOPA/LEVODOPA 25/100MG TAB PO SCH ×2 (08:06→11:09)
[2018-11-15] MEDS: AMANTADINE HCL 100 MG CAPSULE PO SCH (08:07)
[2018-11-15] MEDS: SENNA 8.6 MG TAB PO SCH (08:07)
[2018-11-15] MEDS: HEPARIN SOD 5,000 UNIT/0.5 ML VIAL SQ SCH (08:07)
[2018-11-15] MEDS: CHLORPROMAZINE HCL 25 MG TABLET PO SCH (08:07)
[2018-11-15] MEDS: ALPRAZolam 0.25 MG TABLET PO SCH (08:07)
--- NOTE | 2018-11-15 11:23 | Discharge Summary ---
Date of Service November 15, 2018 Admission HPI Per Admitting Provider 83-year-old male with history of advanced Parkinson's disease, macular degeneration, hypertension, TIAs presents with progressive weakness x2 months worse in the past 3 days. Patient is unable to communicate. Per his neurologist 2 months ago did an MRI and told them he has stage IV or V advanced Parkinson's disease. He then had a UTI 2 months ago and again 2 weeks ago which exacerbated his weakness. Recently he has required more care at home to get out of bed and is requiring a walker to ambulate. His shakiness is also worse and he is noted to be hallucinating/delusional per PEST CONTROL CHEMICAL TECHNICIAN and . He has a physician patent legal assistant as PCP who comes to his home to see him in addition to OT, PT, and PEST CONTROL CHEMICAL TECHNICIAN help. He was treated with antibiotics for his most recent UTI but according to was getting worse the past 3 days so she brought him to the hospital. Past medical history: advanced Parkinson's disease, hypertension, TIAs Past surgical history: left femur internal fixation, multiple oral surgeries Social history: Smoked 2 packs a day for 5 years but quit in 1960, used to be a social drinker, no recreational drug use, lives with and has multiple caregivers Family history: Mother had brain aneurysm and of stroke, father had LA and Parkinson's, 2 brothers had MIs and Parkinson as well Principal Diagnosis UTI, weakness, C. difficile colitis, acute kidney injury Discharge Exam Constitutional well nourished; no acute distress Speaks with moans and grunts and nods or shakes of head Eyes PERRL, conjunctivae normal, anicteric sclerae ENMT external ear and nose normal, oropharynx normal (Drooling) Neck trachea midline, no thyromegaly Respiratory normal respiratory effort, lungs clear to auscultation Cardiovascular RRR, no murmur, no edema Gastrointestinal (Abdomen) normal bowel sounds, soft, nontender, no hepatosplenomegaly Musculoskeletal Extremities: extremities normal to inspection; no cyanosis and no clubbing Skin no rashes, warm and dry Neurologic moves all extremities and awake Unable to speak intelligibly, rigid throughout but does move all 4 extremities on command Psychiatric Orientation: alert, oriented to person and cooperative Discharge Data Allergies Allergy/AdvReac Type Severity Reaction Status Date / Time No Known Allergies Allergy Unverified 06/20/19 17:15 Consultations Neurology Ordered Studies 11/04/18 18:45 CT head/brain wo con Stat Chest x-ray x3 KUB x-ray Hospital Course (1) UTI (urinary tract infection): several recent UTI that were treated prior to admission UA on admission did not show signs of infection and WBC was normal two days in a row urine culture was sent however and it grew Enterococcus, not VRE fortunately He was treated with Ampicillin while inpatient, will need 10 days total due to complicated status today is day 7 stopped IV fluids on 11/10, eating and drinking better will transition to PO antibiotics on discharge, plan for Amoxicillin, last day of abx would be 11/17 (2) C. difficile colitis: diarrhea started in the morning on 11/09 tested positive for C diff toxin and gene treat with Vancomycin 125mg PO q6 no fever, no abdominal pain will need 14 days of Vancomycin past completion of the antibiotics no diarrhea for 5 days, showing a good clinical response WBC down to 12k from 22k last day of Vancomycin would be 12/01 (3) Hiccups: ongoing issue for a few days, thought is was GERD tried Thorazine, minimal response hold on further treatment (4) Acute kidney injury: resolved. Cr stable for several days He received IV fluids which were then stopped as PO intake is better (5) Hallucinations: resolved, but tend to be recurrent chronic issue (6) Generalized weakness: acute - 2nd to UTI and dehydration and C diff colitis chronic weakness - 2nd to advanced PD. B12 level wnl. TSH wnl. PT,OT. CT head noted to be negative. d/w on 11/12, plan for rehab at [facility] (7) Parkinson's disease: advanced, dx 8 years ago in [place]. appreciate neurology consultation by Dr Hayward. no change in medications at this time. PT,OT. treat other comorbidities. -Should follow-up with neurology after discharge (8) Macular degeneration: noted (9) Hypertension: stable -Continue home med of amlodipine 10 mg daily, losartan 50 mill grams daily (10) TIA (transient ischemic attack): noted consider aspirin 81mg daily but will hold off for now (11) Constipation: resolved (12) Chronic kidney disease, stage 3a: Cr has been stable for most of the week (13) DVT prophylaxis: heparin 5000 BID Was provided reviewed PT/OT notes max assist for activities Stable for discharge to rehab at [facility] today Plan: discharge on Amoxicillin 875mg BID until 11/17, Vancomycin 125mg PO QID until 12/01 Total Time Total Time Spent Total Time Spent (In Minutes): Greater than 30 minutes Total Time Includes: Examination of the Patient, Discharge Planning and Medication Reconciliation Discharge Plan Discharge Items Patient Disposition: Transfer [facility] Fac Reason For Visit: WEAKNESS Discharge Diagnosis: UTI, enteroccus faecilis C diff colitis Advanced Parkinson's Condition: Good Discharge Goals: Improve function and Increase independence Activity: Resume your previous activity Lifting: None Bathing: No limitations Exercise/Sports: Gradually increase as tolerated Non-emergency contact: Primary Care Provider and Neurologist Call non-emergency contact if: you have any medication questions, your symptoms worsen and you have a fever Follow-up/Referrals: Aurelio Bryant [Primary Care Provider] - Diet: Heart Healthy Addtl Provider Instructions: Medications: - AMOXICILLIN: take twice a day for 6 more doses for full 10 day treatment of UTI - VANCOMYCIN: 125mg capsule four times a day for 17 more days to treat C diff colitis Patient is weak from UTI, dehydration and C diff colitis at baseline he requires home aides and home therapy due to advanced Parkinson's disease plan is to complete a short rehab stay so that he can get stronger and go home FOLLOW UP - physician at [facility] this week - Aurelio YAN in week after discharge from rehab Prescriptions: New amoxicillin 875 mg tablet 875 mg PO BID Qty: 6 RF: 0 vancomycin 125 mg capsule 125 mg PO QID 17 Days Qty: 68 RF: 0 Continued amantadine HCl 100 mg Tablet 100 mg PO BID RF: 0 losartan 50 mg Tablet 50 mg PO QAM RF: 0 carbidopa-levodopa 25-100 mg Tablet Extended Release 1 tab PO BID RF: 0 amlodipine 10 mg Tablet 10 mg PO QAM RF: 0 carbidopa-levodopa 25-100 mg Tablet 1 tab PO TID RF: 0 alprazolam 0.25 mg Tablet 0.25 mg PO TID RF: 0 Stand-Alone Forms: Discharge [facility], [facility] Discharge Orders: Discharge Order (Routine); Ordered 11/15/18 Ordered By: Katya Calvert Skilled Items Patient informed of condition?: Yes DNR: No Discharge Level of Care: Skilled Communicable Disease: Yes (C. difficile) Discharge Prognosis: Improving Admission Data Admit Date/Time: 11/04/18 20:07 Attending Provider: Katya Calvert Admit Provider: Charlie Mckenzie Primary Care Provider: Aurelio Bryant Other Providers: James Giang ; Juan Antonio Hayward Service: Telemetry Medical Other Pending Studies at Discharge: No
== END 2018-11-15 13:13 | DRG 682 ==
LOC: ED 15:50 → 2N 20:07 → SUATTDRO 20:07 → 2N 20:45

== ENCOUNTER 2018-12-05 08:41 | Inpatient (IN) ==
--- NOTE | 2018-12-05 09:11 | XRay Report ---
XR chest 1V portable CLINICAL HISTORY: Sepsis disposition COMPARISON STUDY: 11/10/2018 FINDINGS: The bones soft tissues and hemidiaphragms are normal. The cardiomediastinal silhouette is n ormal. The lungs are clear. The pulmonary vasculature is normal. IMPRESSION: Negative chest. The above report was generated using voice recognition software. It may contain grammatical, syntax or spelling errors. Electronically signed by: Sarbjit Kothari M.D. 12/05/2018 9:08 AM
[2018-12-05 09:26] LABS: Appearance Urine Clear (Clear); Bacteria Urine Automated Negative (Negative); Bilirubin Urine Negative (Negative); Blood Urine Negative (Negative); Color Urine Yellow; Glucose Urine UA Negative (Negative); Ketones Urine Negative (Negative); Leukocyte Esterase Urine Negative (Negative); Nitrite Urine Negative (Negative); RBC Urine Automated 0-4 /hpf (0-4); Specific Gravity Urine 1.013 (1.000-1.030); Urobilinogen Urine Negative (Negative); pH Urine 7.5 (4.5-7.5)
[2018-12-05 09:26] LABS: Basophils # (auto) 0.02 K/uL (0-0.2); Basophils % (auto) 0.2 %; Eosinophils # (auto) 0.22 K/uL (0-0.5); Eosinophils % (auto) 2.6 %; Hematocrit (blood only) 32.4 % (42-52); Hemoglobin 10.6 g/dL (14.0-18.0); Immature Granulocytes # (auto) 0.03 K/uL (0.00-0.02); Immature Granulocytes % (auto) 0.4 %; Lymphocytes # (auto) 1.04 K/uL (1.2-3.4); Lymphocytes % (auto) 12.2 %; Mean Corpuscular Hgb Conc 32.7 g/dL (32-36); Mean Corpuscular Volume 98.8 fL (80-100); Mean Platelet Volume 9.6 fL (7.4-10.4); Monocytes # (auto) 0.56 K/uL (0.11-0.59); Monocytes % (auto) 6.6 %; Neutrophils # (auto) 6.65 K/uL (1.4-6.5); Platelet Count 296 K/uL (130-400); RDW Coefficient of Variation 13.3 % (11.5-14.5); RDW Standard Deviation 47.6 fL (36.4-46.3); Red Blood Count 3.28 M/uL (4.7-6.1); White Blood Count 8.52 K/uL (4.8-10.8)
[2018-12-05 09:32] LABS: Base Excess VBG 0.9 mEq/L; Oxygen Saturation VBG 65.1 %; pH VBG 7.45 (7.36-7.41)
[2018-12-05 09:39] LABS: Protein Urine Negative (Negative)
[2018-12-05 09:40] LABS: INR 1.1 (0.9-1.1); Partial Thromboplastin Time 27.2 Seconds (21.0-31.0); Prothrombin Time 10.8 Seconds (9.0-12.0)
[2018-12-05 09:47] LABS: Alanine Aminotransferase 14 U/L (12-78); Albumin Level 3.6 gm/dl (3.4-5.0); Aspartate Aminotransferase 20 U/L (15-37); Blood Urea Nitrogen 18 mg/dl (7-18); Calcium 9.3 mg/dl (8.5-10.1); Carbon Dioxide 24 mmol/L (21-32); Chloride 109 mmol/L (98-107); Est GFR (African American) 38.7; Est GFR (Non-African American) 33.4; Glucose 100 mg/dl (70-99); Potassium 4.2 mmol/L (3.5-5.1); Sodium 144 mmol/L (136-145)
[2018-12-05 09:52] LABS: Albumin Globulin Ratio 0.9 (0.9-2); Alkaline Phosphatase 101 U/L (45-117); Bilirubin,Total 0.6 mg/dl (0.2-1); Total Protein 7.6 gm/dl (6.4-8.2); Troponin I 0.016 ng/ml (0-0.045)
[2018-12-05] MEDS ORDERED: SODIUM CHLORIDE 0.9% 1000ML 1,000 ML IV ONE (10:08)
--- NOTE | 2018-12-05 10:28 | History & Physical Report ---
Date of Service December 05, 2018 Assessment & Plan (1) Fever: Uncertain origin, ongoing since 12/03 with hallucinations and declining communication skills since that time Hx of recurrent UTI, UA neg Hx of recent cdiff s/p abx, now with no diarrhea per SNF CXR neg WBC WNL Midline placed 12/04, seems unlikely to be source but will draw cx from line Blood cx pending ECHO pending Will give one dose of vanco and monitor temps Add probiotic given recent cdiff (2) ARF (acute renal failure): Decreased PO per facility 1L IVF 12/[address] [facility] Continue with hydration and monitor (3) C. difficile colitis: Finished abx on 12/01 No further diarrhea per SNF nurse Will not recheck given no diarrhea and result will be + in the setting of recent infection (4) Hypertension: continue home meds (5) TIA (transient ischemic attack): Hx of episodes (6) Parkinson's disease: continue home meds Hallucinations, spasms, increased rigidity possibly related to ongoing sinamet use?? Could consider a drug holiday if no infection identified (7) Fall: 12/[address] [facility] Reports no injuries Will need PT/OT once able (8) Anxiety: continue home meds (9) DVT prophylaxis: SCDs, Heparin for DVT proph History of Present Illness Primary Care Provider: [facility] Alivia 83 y/o M who was transferred to the ED from [facility] for fevers and hallucinations. There was a midline placed on 12/04 for 1L IVF due to pt not taking PO. Paperwork with pt did not specify much more than this. I spoke with nursing at [facility] who was quite familiar with pt. She told me that pt started having fevers and hallucinations on Thursday. She states that he was "picking at the air" and calling out to them with concerns about seeing things that were clearly not there. This was new for pt. Labs were done and pt was noted to have an increased cr. They attempted to increase his PO fluids, however pt would not take further PO. On Thursday, they attempted to place an IV for IVF, however they were unable to obtain access, so a midline was placed. Pt did receive 1L IVF, but continued to have fevers and hallucinations. She states that pt was noted to have full body jerking and spasms and fell out of bed during the 7-11p shift last night without injury to himself. He has not been SOB or appearing in pain/complaining of pain. Pt was d/c on 11/15 from [facility] for UTI and cdiff. She states he completed all abx and has had no further diarrhea. She states he has been having one bowel movement daily now. He has had no complaints of nausea and there has been no emesis. She states that other than the hallucinations and the changes they have noticed, pt had no other complaints. His baseline speech and communication is limited, but she states they can communicate with him readily. Over the last few days this has declined and today they could not understand him. She states that he usually feeds himself breakfast and he did so on Thursday. His comes for lunch and helps him eat that meal, and she did so on Thursday. She states that pt has rapidly declined since Thursday. Unable to obtain full ROS due to pt's inability to communicate, but ROS as given by nursing above otherwise. Allergies Allergy/AdvReac Type Severity Reaction Status Date / Time No Known Allergies Allergy Unverified 12/05/18 10:12 Home Medications Home Medications Medication Instructions Recorded Confirmed Type amantadine HCl 100 mg PO BID 11/04/18 12/05/18 History amlodipine 10 mg PO QAM 11/04/18 12/05/18 History carbidopa-levodopa 1 tab PO BID 11/04/18 12/05/18 History carbidopa-levodopa 1 tab PO TID 11/04/18 12/05/18 History losartan 50 mg PO QAM 11/04/18 12/05/18 History alprazolam 0.25 mg PO BID 12/05/18 12/05/18 History ranitidine HCl 150 mg PO BID 12/05/18 12/05/18 History Past Med/Surg History Medical History Parkinson's disease (Chronic) Macular degeneration (Chronic) Anxiety Arthritis HTN (hypertension) Family History Other No significant family history Social History Preferred Language: Nepalese Communication Ability: Impaired Iron Piler Required: No Beliefs That Will Affect Care: None Current Living Situation: Alf Other Information That Helps Us Care for You: No Feels Safe at Home: Yes Safety Concerns: Feels Safe At This Time Smoking Status: Former smoker Do You Dip or Chew Tobacco: No Smoking End Date: 1960 Second Hand Exposure: No Tobacco Cessation Education Requested by Patient: No Hx Alcohol Use: No Hx Substance Use: No Review of Systems Review of Systems: Unable to obtain full ROS due to pt's inability to communicate, but ROS as given by nursing above otherwise. Physical Exam Constitutional: WD/WN, vitals as above Eyes: normal visual canseco by confrontation and + anicteric sclerae Neck: normal visual inspection and trachea midline Respiratory: normal respiratory effort, lungs clear to auscultation Cardiovascular: Rate/Rhythm: regular rate and regular rhythm Gastrointestinal (Abdomen): Inspection/Auscultation: abdomen not distended Percussion/Palpation: abdomen soft; abdomen nontender Musculoskeletal: Head/Neck/Chest: normocephalic and head atraumatic negative for edema, peripheral pulses intact Skin: no rashes, warm and dry Neurologic: awake Speech / Cognition: + abnormal speech Motor/Sensory: + tremor and + abnormal movement Psychiatric: Orientation: oriented to person Affect: + flat affect Results & Data Vital Signs (Past 12 Hours) Vital Signs Temp Pulse Pulse Resp BP BP Pulse Ox 12/05/18 09:31 84 20 154/94 H 100 12/05/18 09:08 86 22 98 12/05/18 09:03 38.1 C H 88 22 165/68 H 98 Diagnostic Findings CXR: neg for acute Code Status & VTE Plan Code Status Full code per paperwork with pt VTE Prophylaxis Plan VTE Prophylaxis will be ordered: Yes PG Care Time/CCT Total # of Minutes Spent Total Time Spent with Patient: Total time spent is greater than 50% in coordination of care (as documented) at patient's floor/unit and/or counseling patient: (1) Hypertension Hypertension type: essential hypertension Qualified Code(s): I10 - Essential (primary) hypertension
[2018-12-05] MEDS ORDERED: ONDANSETRON INJ 2 MG/ML 2 ML VIAL IV PRN (12:46)
[2018-12-05] MEDS ORDERED: VANCOMYCIN HCL 500 MG in SODIUM CHLORIDE 0.9% 250 ML IV SCH (12:46)
[2018-12-05] MEDS ORDERED: VANCOMYCIN CONSULT ACTIVE PRN (12:46)
[2018-12-05] MEDS ORDERED: MAGNESIUM HYDROXIDE SUSP 30 ML UDC PO PRN (12:46)
[2018-12-05] MEDS ORDERED: ACETAMINOPHEN 325 MG TAB PO PRN (12:46)
[2018-12-05] MEDS: SODIUM CHLORIDE 0.45 % 1,000 ML IV SCH ×2 (13:14→22:59)
[2018-12-05] MEDS ORDERED: VANCOMYCIN HCL 1,500 MG in SODIUM CHLORIDE 0.9% 500 ML IV ONE (13:15)
--- NOTE | 2018-12-05 14:16 | Emergency Department Note ---
Entered by Melani Estrella acting as a scribe for Juan Antonio Ortiz MD History of Present Illness General Chief complaint: Fever Stated [place] [facility] [place] [facility] Time Seen by Provider: 12/05/18 08:47 Source: patient, EMS and old records reviewed Mode of arrival: EMS History of Present Illness Onset (ago): day(s) 3 Location: chest Pain Consistency: + other (persistent) Quality: + other (shortness of breath) Relieved By: + other (O2 via nasal cannula) Associated symptoms: + other (fever, hallucinations) The patient is a 83 year old male with a history of Parkinson's and UTIs that is presenting to the Emergency Room with complaints of persistent shortness of breath and fever that started 3 days ago. The patient was brought to the Emergency Room via EMS, who provided the history. The patient is a resident at [facility]. EMS states that the patient was found to have an O2 sat below 80% and a fever over 100F for the past three days. EMS notes that the patient has some associated hallucinations that are worse today. EMS states that the patient mumbles at baseline secondary to a history of Parkinsons Disease but notes that he usually answers questions appropriately at baseline. EMS reports that the patient has been given fluids but no antibiotics. EMS notes that the patient is full code and has a PICC line in place. EMS states that the patient has a history of UTIs. On review of the patients records, the patient was discharged from the hospital on 11/15/2018 with UTI, weakness, and C.diff. The HPI and ROS are limited secondary to the patient's mental status. Home Medications Home Medications Medication Instructions Recorded Confirmed Type amantadine HCl 100 mg PO BID 11/04/18 12/05/18 History amlodipine 10 mg PO QAM 11/04/18 12/05/18 History carbidopa-levodopa 1 tab PO BID 11/04/18 12/05/18 History carbidopa-levodopa 1 tab PO TID 11/04/18 12/05/18 History losartan 50 mg PO QAM 11/04/18 12/05/18 History alprazolam 0.25 mg PO BID 12/05/18 12/05/18 History ranitidine HCl 150 mg PO BID 12/05/18 12/05/18 History Allergies Allergy/AdvReac Type Severity Reaction Status Date / Time No Known Allergies Allergy Unverified 12/05/18 10:12 Past Med/Surg History Medical History Parkinson's disease (Chronic) Macular degeneration (Chronic) Anxiety Arthritis HTN (hypertension) Family History Other No significant family history Social History Preferred Language: Honduran Communication Ability: Impaired 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 The HPI and ROS are limited secondary to the patient's mental status. Physical Exam Vital Signs Vital Signs - 24 hr 12/05/18 09:03 12/05/18 09:08 12/05/18 09:31 Temperature 38.1 C H Temperature Source Rectal Sepsis Recent Fever Within 48 Hours Yes Sepsis Action Taken by Nursing No Action Required Pulse Rate 88 86 Pulse Rate [Right Finger] 84 Respiratory Rate 22 22 20 Respiratory Effort / Characteristics Non-Labored Non-Labored Respiratory Depth Normal Normal Blood Pressure 165/68 H Blood Pressure [Left Arm] 154/94 H Blood Pressure Mean 100 Blood Pressure Mean [Left Arm] 114 Pulse Oximetry 98 98 100 Oxygen Delivery Method Room Air Room Air Nasal Cannula Oxygen Flow Rate 2 12/05/18 10:32 12/05/18 10:48 Temperature 36.7 C Temperature Source Rectal Sepsis Recent Fever Within 48 Hours Sepsis Action Taken by Nursing Pulse Rate Pulse Rate [Right Finger] 86 Respiratory Rate 24 Respiratory Effort / Characteristics Respiratory Depth Blood Pressure Blood Pressure [Left Arm] 148/62 H Blood Pressure Mean Blood Pressure Mean [Left Arm] 90 Pulse Oximetry 100 Oxygen Delivery Method Nasal Cannula Oxygen Flow Rate 2 General: Chronically-ill appearing older male in no acute distress. Mumbles when he talks and is difficult to understand which is apparently baseline. He has a PICC line in his right arm. HEENT: Normal cephalic atraumatic. Pupils are equal round and reactive to light. Extraocular movements are intact. Oropharynx is pink with moist mucous membranes. No swelling of the mouth lips or tongue. Neck: Supple with a midline trachea. No meningeal signs or stiffness, no JVD or bruits. No Stridor. Chest: Clear to auscultation bilaterally. No wheezes or rhonchi. No increased work of breathing. Heart: regular rate and rhythm. Abdomen: Soft nontender, nondistended without rebound guarding or rigidity. Extremities: No cyanosis clubbing or edema. No calf tenderness or asymmetry Spine/Back. Non tender to palpation. No CVA tenderness Skin: Good turgor without rashes. Neurologic exam: Cranial nerves two through 12 are intact. Motor and sensation are intact and symmetrical throughout. Baseline tremor. Course 0843:The patient was evaluated in room A12B. A complete history and physical examination was performed. 1011: I discussed the patient's case with JENNIFER Montana, who will evaluate the patient for further management and care. 1015: Upon reevaluation, the patient is resting comfortably. I discussed laboratory and radiographic results with the patient. He verbalized agreement of the treatment plan. The patient will be evaluated for further management and care. Consultations Consultation #1: I discussed the patient's case with JENNIFER Montana, who will evaluate the patient for further management and care. Time: 10:11 Administered Medications Sodium Chloride (1/2 Nss) 1,000 mls @ 100 mls/hr IV .Q10H OSIEL Stop: 01/04/19 12:59 Last Admin: 12/05/18 13:14 Dose: 100 mls/hr Documented by: [id number] Discontinued Medications Sodium Chloride (Nss 1000ml) 1,000 mls @ 999 mls/hr IV .Q1H1M ONE Stop: 12/05/18 11:08 Last Infusion: 12/05/18 12:48 Dose: 0 mls/hr Documented by: [id number] Admin: 12/05/18 10:36 Dose: 999 mls/hr Documented by: [id number] Medical Decision Making Differential Diagnosis Differential Diagnosis: Etiologies such as sepsis, UTI, pulmonary disease, intracranial process, electrolyte or metabolic abnormalities as well as others were entertained. Medical Records Attestation: I reviewed the patient's medical records. Home Medications Current Medication List: was personally reviewed by me Laboratory Data Attestation: I reviewed the patient's lab results. Result diagrams: 12/05/18 09:06 12/05/18 09:06 Lab Results 12/05/18 12/05/18 12/05/18 Range/Units 09:00 09:06 09:06 WBC 8.52 (4.8-10.8) K/uL RBC 3.28 L (4.7-6.1) M/uL Hgb 10.6 L (14.0-18.0) g/dL Hct 32.4 L (42-52) % MCV 98.8 (80-100) fL MCH 32.3 (25-34) pg MCHC 32.7 (32-36) g/dL RDW Std Deviation 47.6 H (36.4-46.3) fL RDW Coeff of Alo 13.3 (11.5-14.5) % Plt Count 296 (130-400) K/uL MPV 9.6 (7.4-10.4) fL Immature Gran % (Auto) 0.4 % Neut % (Auto) 78.0 % Lymph % (Auto) 12.2 % [place] % (Auto) 6.6 % Eos % (Auto) 2.6 % Baso % (Auto) 0.2 % Immature Gran # (Auto) 0.03 H (0.00-0.02) K/uL Neut # (Auto) 6.65 H (1.4-6.5) K/uL Lymph # (Auto) 1.04 L (1.2-3.4) K/uL [place] # (Auto) 0.56 (0.11-0.59) K/uL Eos # (Auto) 0.22 (0-0.5) K/uL Baso # (Auto) 0.02 (0-0.2) K/uL PT 10.8 (9.0-12.0) Seconds INR 1.1 (0.9-1.1) APTT 27.2 (21.0-31.0) Seconds PTT Ratio 1.0 VBG pH (7.36-7.41) VBG pCO2 (38-50) mmHg VBG pO2 mmHg VBG HCO3 mmol/L VBG O2 Saturation % VBG Base Excess mEq/L Barometric Pressure mm/Hg Sodium (136-145) mmol/L Potassium (3.5-5.1) mmol/L Chloride (98-107) mmol/L Carbon Dioxide (21-32) mmol/L Anion Gap (3-11) BUN (7-18) mg/dl Creatinine (0.6-1.4) mg/dl Est Cr Clr Drug Dosing Est GFR ( Amer) Est GFR (Non-Af Amer) BUN/Creatinine Ratio (10-20) Glucose (70-99) mg/dl Lactate (0.4-2.0) mmol/L Calcium (8.5-10.1) mg/dl Total Bilirubin (0.2-1) mg/dl AST (15-37) U/L ALT (12-78) U/L Alkaline Phosphatase (45-117) U/L Troponin I (0-0.045) ng/ml Total Protein (6.4-8.2) gm/dl Albumin (3.4-5.0) gm/dl Globulin (2.5-4.0) gm/dl Albumin/Globulin Ratio (0.9-2) Procalcitonin (0-0.5) ng/ml Urine Color Yellow Urine Appearance Clear (Clear) Urine pH 7.5 (4.5-7.5) Ur Specific Jesse 1.013 (1.000-1.030) Urine Protein Negative (Negative) Urine Glucose (UA) Negative (Negative) Urine Ketones Negative (Negative) Urine Blood Negative (Negative) Urine Nitrite Negative (Negative) Urine Bilirubin Negative (Negative) Urine Urobilinogen Negative (Negative) Ur Leukocyte Esterase Negative (Negative) Urine WBC (Auto) 1-5 (0-5) /hpf Urine RBC (Auto) 0-4 (0-4) /hpf U Hyaline Cast (Auto) 1-5 (0-5) /lpf U Epithel Cells (Auto) 10-20 H (0-5) /lpf Urine Bacteria (Auto) Negative (Negative) 12/05/18 12/05/18 12/05/18 Range/Units 09:06 09:06 09:06 WBC (4.8-10.8) K/uL RBC (4.7-6.1) M/uL Hgb (14.0-18.0) g/dL Hct (42-52) % MCV (80-100) fL MCH (25-34) pg MCHC (32-36) g/dL RDW Std Deviation (36.4-46.3) fL RDW Coeff of Alo (11.5-14.5) % Plt Count (130-400) K/uL MPV (7.4-10.4) fL Immature Gran % (Auto) % Neut % (Auto) % Lymph % (Auto) % [place] % (Auto) % Eos % (Auto) % Baso % (Auto) % Immature Gran # (Auto) (0.00-0.02) K/uL Neut # (Auto) (1.4-6.5) K/uL Lymph # (Auto) (1.2-3.4) K/uL [place] # (Auto) (0.11-0.59) K/uL Eos # (Auto) (0-0.5) K/uL Baso # (Auto) (0-0.2) K/uL PT (9.0-12.0) Seconds INR (0.9-1.1) APTT (21.0-31.0) Seconds PTT Ratio VBG pH (7.36-7.41) VBG pCO2 (38-50) mmHg VBG pO2 mmHg VBG HCO3 mmol/L VBG O2 Saturation % VBG Base Excess mEq/L Barometric Pressure mm/Hg Sodium 144 (136-145) mmol/L Potassium 4.2 (3.5-5.1) mmol/L Chloride 109 H (98-107) mmol/L Carbon Dioxide 24 (21-32) mmol/L Anion Gap 11.0 (3-11) BUN 18 (7-18) mg/dl Creatinine 1.82 H (0.6-1.4) mg/dl Est Cr Clr Drug Dosing Not Reportable Est GFR ( Amer) 38.7 Est GFR (Non-Af Amer) 33.4 BUN/Creatinine Ratio 10.0 (10-20) Glucose 100 H (70-99) mg/dl Lactate (0.4-2.0) mmol/L Calcium 9.3 (8.5-10.1) mg/dl Total Bilirubin 0.6 (0.2-1) mg/dl AST 20 (15-37) U/L ALT 14 (12-78) U/L Alkaline Phosphatase 101 (45-117) U/L Troponin I 0.016 Cancelled (0-0.045) ng/ml Total Protein 7.6 (6.4-8.2) gm/dl Albumin 3.6 (3.4-5.0) gm/dl Globulin 4.0 (2.5-4.0) gm/dl Albumin/Globulin Ratio 0.9 (0.9-2) Procalcitonin 0.09 (0-0.5) ng/ml Urine Color Urine Appearance (Clear) Urine pH (4.5-7.5) Ur Specific Jesse (1.000-1.030) Urine Protein (Negative) Urine Glucose (UA) (Negative) Urine Ketones (Negative) Urine Blood (Negative) Urine Nitrite (Negative) Urine Bilirubin (Negative) Urine Urobilinogen (Negative) Ur Leukocyte Esterase (Negative) Urine WBC (Auto) (0-5) /hpf Urine RBC (Auto) (0-4) /hpf U Hyaline Cast (Auto) (0-5) /lpf U Epithel Cells (Auto) (0-5) /lpf Urine Bacteria (Auto) (Negative) 12/05/18 12/05/18 Range/Units 09:15 09:15 WBC (4.8-10.8) K/uL RBC (4.7-6.1) M/uL Hgb (14.0-18.0) g/dL Hct (42-52) % MCV (80-100) fL MCH (25-34) pg MCHC (32-36) g/dL RDW Std Deviation (36.4-46.3) fL RDW Coeff of Alo (11.5-14.5) % Plt Count (130-400) K/uL MPV (7.4-10.4) fL Immature Gran % (Auto) % Neut % (Auto) % Lymph % (Auto) % [place] % (Auto) % Eos % (Auto) % Baso % (Auto) % Immature Gran # (Auto) (0.00-0.02) K/uL Neut # (Auto) (1.4-6.5) K/uL Lymph # (Auto) (1.2-3.4) K/uL [place] # (Auto) (0.11-0.59) K/uL Eos # (Auto) (0-0.5) K/uL Baso # (Auto) (0-0.2) K/uL PT (9.0-12.0) Seconds INR (0.9-1.1) APTT (21.0-31.0) Seconds PTT Ratio VBG pH 7.45 H (7.36-7.41) VBG pCO2 36 L (38-50) mmHg VBG pO2 33 mmHg VBG HCO3 25 mmol/L VBG O2 Saturation 65.1 % VBG Base Excess 0.9 mEq/L Barometric Pressure 730.0 mm/Hg Sodium (136-145) mmol/L Potassium (3.5-5.1) mmol/L Chloride (98-107) mmol/L Carbon Dioxide (21-32) mmol/L Anion Gap (3-11) BUN (7-18) mg/dl Creatinine (0.6-1.4) mg/dl Est Cr Clr Drug Dosing Est GFR ( Amer) Est GFR (Non-Af Amer) BUN/Creatinine Ratio (10-20) Glucose (70-99) mg/dl Lactate 1.4 (0.4-2.0) mmol/L Calcium (8.5-10.1) mg/dl Total Bilirubin (0.2-1) mg/dl AST (15-37) U/L ALT (12-78) U/L Alkaline Phosphatase (45-117) U/L Troponin I (0-0.045) ng/ml Total Protein (6.4-8.2) gm/dl Albumin (3.4-5.0) gm/dl Globulin (2.5-4.0) gm/dl Albumin/Globulin Ratio (0.9-2) Procalcitonin (0-0.5) ng/ml Urine Color Urine Appearance (Clear) Urine pH (4.5-7.5) Ur Specific Jesse (1.000-1.030) Urine Protein (Negative) Urine Glucose (UA) (Negative) Urine Ketones (Negative) Urine Blood (Negative) Urine Nitrite (Negative) Urine Bilirubin (Negative) Urine Urobilinogen (Negative) Ur Leukocyte Esterase (Negative) Urine WBC (Auto) (0-5) /hpf Urine RBC (Auto) (0-4) /hpf U Hyaline Cast (Auto) (0-5) /lpf U Epithel Cells (Auto) (0-5) /lpf Urine Bacteria (Auto) (Negative) Imaging Data Radiologist's Impression: Radiology results as stated below per my review and the radiologist's interpretation: XR chest 1V portable CLINICAL HISTORY: Sepsis disposition COMPARISON STUDY: 11/10/2018 FINDINGS: The bones soft tissues and hemidiaphragms are normal. The cardiomediastinal silhouette is normal. The lungs are clear. The pulmonary vasculature is normal. IMPRESSION: Negative chest. The above report was generated using voice recognition software. It may contain grammatical, syntax or spelling errors. Electronically signed by: Sarbjit Kothari M.D. 12/05/2018 9:08 AM ECG Data Attestation: I personally reviewed and interpreted this ECG as follows: Indication: SOB/dyspnea Rate (beats per minute): 87 Rhythm: normal sinus Findings: + nonspecific-ST abn; no ST depression, no ST elevation and no acute ischemic change Comparison ECG Date: from (11/04/2018) Change: no significant change Blood Pressure Blood Pressure Findings: Elevated blood pressure Blood Pressure Disposition: Referred to patients primary care provider [facility] Narrative This patient comes in as described above. He was placed in room A12. [facility] having hypoxemia and hallucinations. He is also had a fever. He does have a PICC line in the right arm which apparently has been placed for hydration. He does have baseline Parkinson's and is difficult to evaluate as he is difficult to understand and I think also mildly confused. IV access was established and he was hydrated with IV normal saline. blood cultures were obtained. Chest x-ray was clear and he does not appear to have pneumonia his urinalysis does not suggest a UTI at this point. His white count is not significantly elevated nor is his lactic acid. He has no significant electrolyte or metabolic abnormalities. Given his fever, I am concerned about infection or sepsis. He is also has a history of C. difficile am not sure he is been having any I do think he needs to be admitted or observed for further treatment evaluation he has had a PICC line in and it could be related to line infection or endocarditis or viral illness. I have consult Dr. Castaneda in the ER to see the patient. He did receive IV fluids and she will determine which antibiotic she wants him on. Patient will be admitted/observed. Impression & Plan Sepsis, Parkinson's disease, Hallucinations, Fever, Peripherally inserted central catheter (PICC) in place Discharge Plan Visit Data *Final* Discharge Date/Time: 12/05/18 12:31 Chief Complaint: Fever Stated Complaint: sob/ [place] ED Provider: Juan Antonio Ortiz Discharge Problem: Sepsis, Parkinson's disease, Hallucinations, Fever, Peripherally inserted central catheter (PICC) in place Patient Disposition: Admitted As Inpatient Discharge Instructions Interventions: ED Discharge Assessment Last Done: 12/05/18 12:31 The scribe's documentation has been prepared under my direction and personally reviewed by me in its entirety. I confirm that the note above accurately reflects all work, treatment, procedures, and medical decision making performed by me.
--- NOTE | 2018-12-05 14:31 | Pharmacy Report ---
Pharmacy Abx Initial Consult - Date of Service December 05, 2018 - Pharmacy Dosing Scope Date of Consult: 12/05/18 Consultation requested by: Dr. Castaneda Pharmacy is consulted to initiate Vancomycin IV dosing therapy, order appropriate labs and adjust drug dose/frequency. - Subjective The patient is a 83 year old M admitted on 12/05/18 10:56. - Objective Height: 5 ft 9 in Weight: 67.9 kg Vital Signs (Past 12hrs): Vital Signs Temp Pulse Pulse Resp BP BP Pulse Ox 12/05/18 13:11 90 12/05/18 12:57 37.4 C 88 22 155/66 H 100 12/05/18 12:31 100 12/05/18 11:59 84 20 166/55 H 100 12/05/18 10:48 36.7 C 12/05/18 10:32 86 24 148/62 H 100 12/05/18 09:31 84 20 154/94 H 100 12/05/18 09:08 86 22 98 12/05/18 09:03 38.1 C H 88 22 165/68 H 98 Lab Results (24hrs): Laboratory Tests (24 Hours) 12/05/18 12/05/18 12/05/18 09:06 09:06 09:06 WBC 8.52 Neut # (Auto) 6.65 H Creatinine 1.82 H Est Cr Clr Drug Dosing Not Reportable Procalcitonin 0.09 Micro Results: 12/05/18 09:25 Aerobic Blood Culture - Pending Blood Anaerobic Blood Culture - Pending 12/05/18 09:15 Aerobic Blood Culture - Pending Blood Anaerobic Blood Culture - Pending - Risk Factors for Resistance * Resident in a retirement or extended-care facility * Hospitalization for 48 hours or more within the past 90 days * 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 * Antimicrobial use within the last 90 days - amoxicillin and vancomycin after last admission - Assessment & Plan Assessment 83 year old M presented to the ED from [facility] for fevers and altered mental status x2 days. Patient was also noted to have elevated SCr (Baseline 1-1.3?, 1.8 on admission). As a result, pt had midline placed on 12/04 for IVF 2/2 to poor PO status. Admitting Provider does not suspect this to be a source. Pt recently admitted 11/04-11/15 for treatment of UTI and c. diff colitis. Was discharged on amoxicillin and Vanco PO. RN from [facility] confirms both courses or antibiotics were completed and he has had no further diarrhea. 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 Vancomycin IV * Estimated PK Parameters: Vd 0.7 L/kg, Tate 0.028 hr-1, t1/2 24 hr * Loading dose: 1500 mg (22 mg/kg) * Goal trough level : 15 to 20 mcg/mL * Due to extended estimated t1/2 will give LD and order a random level for 22 AM to further assist with dosing. Pharmacy will continue to follow and will adjust dose/frequency as necessary. Thank you.
[2018-12-05] MEDS: LACTOBACILLUS ACIDOPHILUS (FLORANEX) TAB PO SCH ×2 (15:04→16:22)
[2018-12-05] MEDS: HEPARIN SOD 5,000 UNIT/0.5 ML VIAL SQ SCH ×2 (15:04→21:50)
[2018-12-05] MEDS: CARBIDOPA/LEVODOPA 25/100MG TAB PO SCH ×2 (15:04→21:50)
[2018-12-05] MEDS: CARBIDOPA/LEVODOPA 25/100MG EXT REL TAB PO SCH (20:04)
[2018-12-05] MEDS: AMANTADINE HCL 100 MG CAPSULE PO SCH (20:04)
[2018-12-05] MEDS: ALPRAZolam 0.25 MG TABLET PO SCH (20:08)
[2018-12-06] MEDS: HEPARIN SOD 5,000 UNIT/0.5 ML VIAL SQ SCH ×3 (06:26→21:23)
[2018-12-06 06:56] LABS: Basophils # (auto) 0.04 K/uL (0-0.2); Basophils % (auto) 0.4 %; Eosinophils # (auto) 0.58 K/uL (0-0.5); Eosinophils % (auto) 6.2 %; Hematocrit (blood only) 32.3 % (42-52); Hemoglobin 10.4 g/dL (14.0-18.0); Immature Granulocytes # (auto) 0.02 K/uL (0.00-0.02); Immature Granulocytes % (auto) 0.2 %; Lymphocytes # (auto) 1.36 K/uL (1.2-3.4); Lymphocytes % (auto) 14.6 %; Mean Corpuscular Hgb Conc 32.2 g/dL (32-36); Mean Corpuscular Volume 98.5 fL (80-100); Mean Platelet Volume 9.4 fL (7.4-10.4); Monocytes % (auto) 8.6 %; Neutrophils # (auto) 6.49 K/uL (1.4-6.5); Platelet Count 266 K/uL (130-400); RDW Coefficient of Variation 13.2 % (11.5-14.5); RDW Standard Deviation 47.9 fL (36.4-46.3); Red Blood Count 3.28 M/uL (4.7-6.1); White Blood Count 9.29 K/uL (4.8-10.8)
[2018-12-06 07:34] LABS: BUN Creatinine Ratio 11.1 (10-20); Creatinine Clr Calc Pharmacy 37.2 ml/min; Est GFR (African American) 52.2; Potassium 3.9 mmol/L (3.5-5.1)
[2018-12-06] MEDS ORDERED: VANCOMYCIN HCL 1,000 MG in SODIUM CHLORIDE 0.9% 250 ML IV SCH (08:00)
[2018-12-06] MEDS: ALPRAZolam 0.25 MG TABLET PO SCH ×2 (08:25→21:21)
[2018-12-06] MEDS: SODIUM CHLORIDE 0.45 % 1,000 ML IV SCH ×2 (08:25→18:10)
[2018-12-06] MEDS: CARBIDOPA/LEVODOPA 25/100MG EXT REL TAB PO SCH ×2 (08:29→21:22)
[2018-12-06] MEDS: AMLODIPINE BESYLATE 5 MG TAB PO SCH (08:29)
[2018-12-06] MEDS: LACTOBACILLUS ACIDOPHILUS (FLORANEX) TAB PO SCH ×3 (08:29→18:03)
[2018-12-06] MEDS: LOSARTAN POTASSIUM 50 MG TAB PO SCH (08:29)
[2018-12-06] MEDS: AMANTADINE HCL 100 MG CAPSULE PO SCH ×2 (08:29→21:22)
[2018-12-06] MEDS: CARBIDOPA/LEVODOPA 25/100MG TAB PO SCH ×3 (10:15→21:22)
--- NOTE | 2018-12-06 15:04 | Pharmacy Report ---
Pharmacy Abx Dose Short Note - Date of Service December 06, 2018 - Assessment & Plan Assessment 83 year old M receiving IV Vancomycin as empiric antibiotic therapy Day # 2/3 of antimicrobial therapy. Trough slightly subtherapeutic approximately 17 hours following last dose. Population kinetic calculations show estimated half-life of 20 hours. Microbiology 12/05/18 09:25 Blood Aerobic Blood Culture - Preliminary 12/05/18 09:25 Blood Anaerobic Blood Culture - Preliminary No growth in Aerobic bottle after 24 hours. No growth in Anaerobic bottle after 24 hours. 12/05/18 09:15 Blood Aerobic Blood Culture - Preliminary 12/05/18 09:15 Blood Anaerobic Blood Culture - Preliminary No growth in Aerobic bottle after 24 hours. No growth in Anaerobic bottle after 24 hours. Plan Vancomycin * Trough level of 13.4 mcg/mL is subtherapeutic * Change to 1000 mg IV every 16 hours given subtherapeutic random following loading dose * Goal trough level: 15 to 20 mcg/mL * No additional level will be ordered given 48 hour duration of therapy for empiric treatment Pharmacy will continue to follow and will adjust dose/frequency as necessary. Thank you.
--- NOTE | 2018-12-06 16:21 | Hospitalist Progress Note ---
Date of Service December 06, 2018 Assessment & Plan (1) Fever: Uncertain origin, ongoing since 12/03 with hallucinations and declining communication skills since that time no fever since admission after one dose of Vancomycin no clear source of infection C diff negative UA clear CXR without infiltrate blood cultures negative to date still with confusion and lethargy, will repeat CXR tomorrow (2) ARF (acute renal failure): Decreased PO per facility 1L IVF 12/04 at [facility] continue IV fluids Cr improved to 1.4 from 1.8, suggesting this is all dehydration/prerenal azotemia (3) C. difficile colitis: Finished abx on 12/01 No further diarrhea per SNF nurse scant amount of diarrhea here tested for C diff, negative for gene (4) Hypertension: continue home meds, BP stable (5) TIA (transient ischemic attack): Hx of episodes (6) Parkinson's disease: continue home meds Hallucinations, spasms, increased rigidity possibly related to ongoing sinamet use?? reviewed consult from Dr. Hayward from prior admission continue Sinemet could consider Nuplazid as outpatient but this requires prior auth if mental status does not improve then will d/w neurology, hold on formal consult (7) Fall: 12/04 at [facility] Reports no injuries Will need PT/OT once able (8) Anxiety: continue home meds (9) Chronic kidney disease, stage 3a: Cr improved to 1.4, approaching baseline (10) Metabolic encephalopathy: unclear etiology, has severe Parkinson's at baseline no clear infection, recent h/o UTI and C diff colitis checked EEG due to severe shakes and tremors, just showed slowing continue supportive care (11) DVT prophylaxis: SCDs, Heparin for DVT proph Subjective patient seen this morning, he was confused, restless appeared to be agitated by his roommate who kept shouting out reviewed records since admission no fevers, no clear source of infection patient familiar to me from previous admission Review of Systems Review of Systems: Unobtainable due to cognitive status Physical Exam Constitutional: WD/WN, vitals as above + lethargic Eyes: PERRL, conjunctivae normal, anicteric sclerae ENMT: external ear and nose normal, oropharynx normal Neck: trachea midline, no thyromegaly Respiratory: normal respiratory effort, lungs clear to auscultation Cardiovascular: RRR, no murmur, no edema Gastrointestinal (Abdomen): normal bowel sounds, soft, nontender, no hepatosplenomegaly Musculoskeletal: no cyanosis or clubbing, extremities motor strength 5/5 Skin: no rashes, warm and dry Neurologic: patellar DTR's 2+ bilat, sensation intact and PERRL, EOMI, accommodation nl, no face palsy, no dysarthria Motor/Sensory: + tremor (most notable in right arm) Psychiatric: Orientation: alert and oriented to person; + not oriented to place and + not oriented to time Eye Contact: + fair eye contact Motor Behavior: + tremor Lymphatic: no cervical or axillary lymphadenopathy Results & Data Vital Signs (Past 12 Hours) Vital Signs Temp Pulse Resp BP Pulse Ox 12/06/18 11:12 37.1 C 82 18 166/82 H 97 12/06/18 07:21 36.4 C L 89 18 173/76 H 92 12/06/18 05:30 37.3 C Laboratory Results Laboratory Results - last 24 hr 12/06/18 12/06/18 12/06/18 06:14 06:14 06:14 WBC 9.29 RBC 3.28 L Hgb 10.4 L Hct 32.3 L MCV 98.5 MCH 31.7 MCHC 32.2 RDW Std Deviation 47.9 H RDW Coeff of Alo 13.2 Plt Count 266 MPV 9.4 Immature Gran % (Auto) 0.2 Neut % (Auto) 70.0 Lymph % (Auto) 14.6 Schuyler % (Auto) 8.6 Eos % (Auto) 6.2 Baso % (Auto) 0.4 Immature Gran # (Auto) 0.02 Neut # (Auto) 6.49 Lymph # (Auto) 1.36 Schuyler # (Auto) 0.80 H Eos # (Auto) 0.58 H Baso # (Auto) 0.04 Sodium 142 Potassium 3.9 Chloride 109 H Carbon Dioxide 23 Anion Gap 10.0 BUN 16 Creatinine 1.42 H D Est Cr Clr Drug Dosing 37.2 Est GFR ( Amer) 52.2 Est GFR (Non-Af Amer) 45.0 BUN/Creatinine Ratio 11.1 Glucose 84 POC Glucose Calcium 9.0 Stl C. diff Tox B Gene Random Vancomycin 13.4 12/06/18 12/06/18 10:16 12:40 WBC RBC Hgb Hct MCV MCH MCHC RDW Std Deviation RDW Coeff of Alo Plt Count MPV Immature Gran % (Auto) Neut % (Auto) Lymph % (Auto) Schuyler % (Auto) Eos % (Auto) Baso % (Auto) Immature Gran # (Auto) Neut # (Auto) Lymph # (Auto) Schuyler # (Auto) Eos # (Auto) Baso # (Auto) Sodium Potassium Chloride Carbon Dioxide Anion Gap BUN Creatinine Est Cr Clr Drug Dosing Est GFR ( Amer) Est GFR (Non-Af Amer) BUN/Creatinine Ratio Glucose POC Glucose 101 H Calcium Stl C. diff Tox B Gene Negative Cdiff Gene Random Vancomycin Microbiology 12/05/18 09:15 Blood Aerobic Blood Culture - Preliminary No growth in Aerobic bottle after 24 hours. 12/05/18 09:15 Blood Anaerobic Blood Culture - Preliminary No growth in Anaerobic bottle after 24 hours. 12/05/18 09:25 Blood Aerobic Blood Culture - Preliminary No growth in Aerobic bottle after 24 hours. 12/05/18 09:25 Blood Anaerobic Blood Culture - Preliminary No growth in Anaerobic bottle after 24 hours. Medications Administered Current Inpatient Medications Acetaminophen (Tylenol) 650 mg PO Q4H PRN PRN Reason: Pain or Fever Stop: 01/04/19 12:45 Alprazolam (Xanax) 0.25 mg PO BID [facility] Stop: 01/04/19 20:59 Last Admin: 12/06/18 08:25 Dose: 0.25 mg Documented by: Amantadine HCl (Symmetrel) 100 mg PO BID [facility] Stop: 01/04/19 20:59 Last Admin: 12/06/18 08:29 Dose: 100 mg Documented by: Amlodipine Besylate (Norvasc) 10 mg PO QAM [facility] Stop: 01/05/19 08:59 Last Admin: 12/06/18 08:29 Dose: 10 mg Documented by: Carbidopa/Levodopa (Sinement Cr 25/100mg) 1 tab PO BID [facility] Stop: 01/04/19 20:59 Last Admin: 12/06/18 08:29 Dose: 1 tab Documented by: Carbidopa/Levodopa (Sinemet 25/100 Mg) 1 tab PO TID [facility] Stop: 01/04/19 13:59 Last Admin: 12/06/18 14:40 Dose: 1 tab Documented by: Heparin Sodium (Beef Lung) (Heparin Sod 10 Unit/Ml Flush) 5 ml FLUSH PRN PRN PRN Reason: Flush Stop: 01/05/19 00:22 Heparin Sodium (Porcine) (Heparin Sodium (Porcine)) 5,000 units SQ Q8 [facility] Stop: 01/04/19 13:59 Last Admin: 12/06/18 14:40 Dose: 5,000 units Documented by: Sodium Chloride (1/2 Nss) 1,000 mls @ 100 mls/hr IV .Q10H [facility] Stop: 01/04/19 12:59 Last Admin: 12/06/18 08:25 Dose: 100 mls/hr Documented by: Vancomycin HCl 1,000 mg/ (Sodium Chloride) 270 mls @ 125 mls/hr IV Q16H [facility]; Protocol Stop: 12/07/18 18:10 Lactobacillus Acidophilus (Floranex) 4 tab PO TIDM [facility] Stop: 01/04/19 12:45 Last Admin: 12/06/18 14:40 Dose: 4 tab Documented by: Losartan Potassium (Cozaar) 50 mg PO QAM [facility] Stop: 01/05/19 08:59 Last Admin: 12/06/18 08:29 Dose: 50 mg Documented by: Magnesium Hydroxide (Milk Of Magnesia) 30 ml PO Q12H PRN PRN Reason: Constipation Stop: 01/04/19 12:45 Miscellaneous Information (Consult) 1 ea N/A UD PRN PRN Reason: Consult Stop: 01/04/19 12:45 Ondansetron HCl (Zofran) 4 mg IV Q6H PRN PRN Reason: Nausea Stop: 01/04/19 12:45 Ranitidine HCl (Zantac) 150 mg PO BID [facility] Stop: 01/04/19 20:59 Last Admin: 12/06/18 08:29 Dose: 150 mg Documented by: PG Care Time/CCT Total # of Minutes Spent Total Time Spent with Patient: Total time spent is greater than 50% in coordination of care (as documented) at patient's floor/unit and/or counseling patient: (1) Fever Fever type: unspecified Qualified Code(s): R50.9 - Fever, unspecified (2) Hypertension Hypertension type: essential hypertension Qualified Code(s): I10 - Essential (primary) hypertension
[2018-12-07] MEDS ORDERED: VANCOMYCIN HCL 1,000 MG in SODIUM CHLORIDE 0.9% 250 ML IV SCH
[2018-12-07] MEDS: SODIUM CHLORIDE 0.45 % 1,000 ML IV SCH ×3 (00:47→22:45)
[2018-12-07] MEDS: HEPARIN SOD 5,000 UNIT/0.5 ML VIAL SQ SCH ×3 (06:00→21:25)
[2018-12-07 06:33] LABS: Creatinine Clr Calc Pharmacy 39.5 ml/min; Est GFR (African American) 60.3
[2018-12-07] MEDS: CARBIDOPA/LEVODOPA 25/100MG TAB PO SCH ×3 (08:28→21:24)
[2018-12-07] MEDS: CARBIDOPA/LEVODOPA 25/100MG EXT REL TAB PO SCH ×2 (08:29→21:23)
[2018-12-07] MEDS: AMANTADINE HCL 100 MG CAPSULE PO SCH ×2 (08:29→21:24)
[2018-12-07] MEDS: AMLODIPINE BESYLATE 5 MG TAB PO SCH (08:29)
--- NOTE | 2018-12-07 08:51 | Procedure Note ---
EEG Procedure Note Date of Service December 07, 2018 Start / End Times Start Time: 1158 End Time: [address] Johns History Altered mental status with possible seizure activity. Home Medication List Home Medications Medication Instructions Recorded Confirmed Type amantadine HCl 100 mg PO BID 11/04/18 12/05/18 History amlodipine 10 mg PO QAM 11/04/18 12/05/18 History carbidopa-levodopa 1 tab PO BID 11/04/18 12/05/18 History carbidopa-levodopa 1 tab PO TID 11/04/18 12/05/18 History losartan 50 mg PO QAM 11/04/18 12/05/18 History alprazolam 0.25 mg PO BID 12/05/18 12/05/18 History ranitidine HCl 150 mg PO BID 12/05/18 12/05/18 History Inpatient Medication List Alprazolam (Xanax) 0.25 mg PO BID [facility] Stop: 01/04/19 20:59 Last Admin: 12/06/18 21:21 Dose: 0.25 mg Documented by: [id number] Admin: 12/06/18 08:25 Dose: 0.25 mg Documented by: [id number] Admin: 12/05/18 20:08 Dose: 0.25 mg Documented by: [id number] Amantadine HCl (Symmetrel) 100 mg PO BID [facility] Stop: 01/04/19 20:59 Last Admin: 12/07/18 08:29 Dose: 100 mg Documented by: [id number] Admin: 12/06/18 21:22 Dose: 100 mg Documented by: [id number] Admin: 12/06/18 08:29 Dose: 100 mg Documented by: [id number] Admin: 12/05/18 20:04 Dose: 100 mg Documented by: [id number] Amlodipine Besylate (Norvasc) 10 mg PO QAM [facility] Stop: 01/05/19 08:59 Last Admin: 12/07/18 08:29 Dose: 10 mg Documented by: [id number] Admin: 12/06/18 08:29 Dose: 10 mg Documented by: [id number] Carbidopa/Levodopa (Sinement Cr 25/100mg) 1 tab PO BID [facility] Stop: 01/04/19 20:59 Last Admin: 12/07/18 08:29 Dose: 1 tab Documented by: [id number] Admin: 12/06/18 21:22 Dose: 1 tab Documented by: [id number] Admin: 12/06/18 08:29 Dose: 1 tab Documented by: [id number] Admin: 12/05/18 20:04 Dose: 1 tab Documented by: [id number] Carbidopa/Levodopa (Sinemet 25/100 Mg) 1 tab PO TID [facility] Stop: 01/04/19 13:59 Last Admin: 12/07/18 08:28 Dose: 1 tab Documented by: [id number] Admin: 12/06/18 21:22 Dose: 1 tab Documented by: [id number] Admin: 12/06/18 14:40 Dose: 1 tab Documented by: [id number] Admin: 12/06/18 10:15 Dose: 1 tab Documented by: [id number] Admin: 12/05/18 21:50 Dose: 1 tab Documented by: [id number] Admin: 12/05/18 15:04 Dose: 1 tab Documented by: [id number] Heparin Sodium (Porcine) (Heparin Sodium (Porcine)) 5,000 units SQ Q8 [facility] Stop: 01/04/19 13:59 Last Admin: 12/07/18 06:00 Dose: 5,000 units Documented by: [id number] Cosigned by: [id number] Admin: 12/06/18 21:23 Dose: 5,000 units Documented by: [id number] Cosigned by: [id number] Admin: 12/06/18 14:40 Dose: 5,000 units Documented by: [id number] Cosigned by: [id number] Admin: 12/06/18 06:26 Dose: 5,000 units Documented by: [id number] Cosigned by: [id number] Admin: 12/05/18 21:50 Dose: 5,000 units Documented by: [id number] Cosigned by: [id number] Admin: 12/05/18 15:04 Dose: 5,000 units Documented by: [id number] Cosigned by: [id number] Sodium Chloride (1/2 Nss) 1,000 mls @ 100 mls/hr IV .Q10H [facility] Stop: 01/04/19 12:59 Last Admin: 12/07/18 00:47 Dose: 100 mls/hr Documented by: [id number] Infusion: 12/07/18 00:47 Dose: 100 mls/hr Documented by: [id number] Admin: 12/06/18 18:10 Dose: 100 mls/hr Documented by: [id number] Infusion: 12/06/18 18:10 Dose: 100 mls/hr Documented by: [id number] Admin: 12/06/18 08:25 Dose: 100 mls/hr Documented by: [id number] Infusion: 12/06/18 08:25 Dose: 100 mls/hr Documented by: [id number] Admin: 12/05/18 22:59 Dose: 100 mls/hr Documented by: [id number] Infusion: 12/05/18 22:59 Dose: 100 mls/hr Documented by: [id number] Admin: 12/05/18 13:14 Dose: 100 mls/hr Documented by: [id number] Vancomycin HCl 1,000 mg/ (Sodium Chloride) 270 mls @ 125 mls/hr IV Q16H [facility]; Protocol Stop: 12/07/18 18:10 Last Infusion: 12/07/18 03:08 Dose: 0 mls/hr Documented by: [id number] Admin: 12/07/18 00:46 Dose: 125 mls/hr Documented by: [id number] Lactobacillus Acidophilus (Floranex) 4 tab PO TIDM [facility] Stop: 01/04/19 12:45 Last Admin: 12/06/18 18:03 Dose: 4 tab Documented by: [id number] Admin: 12/06/18 14:40 Dose: 4 tab Documented by: [id number] Admin: 12/06/18 08:29 Dose: 4 tab Documented by: [id number] Admin: 12/05/18 16:22 Dose: 4 tab Documented by: [id number] Admin: 12/05/18 15:04 Dose: 4 tab Documented by: [id number] Losartan Potassium (Cozaar) 50 mg PO QAM [facility] Stop: 01/05/19 08:59 Last Admin: 12/06/18 08:29 Dose: 50 mg Documented by: [id number] Ranitidine HCl (Zantac) 150 mg PO BID [facility] Stop: 01/04/19 20:59 Last Admin: 12/06/18 21:21 Dose: 150 mg Documented by: [id number] Admin: 12/06/18 08:29 Dose: 150 mg Documented by: [id number] Admin: 12/05/18 20:04 Dose: 150 mg Documented by: [id number] Discontinued Medications Sodium Chloride (Nss 1000ml) 1,000 mls @ 999 mls/hr IV .Q1H1M [facility] Stop: 12/05/18 11:08 Last Infusion: 12/05/18 12:48 Dose: 0 mls/hr Documented by: [id number] Admin: 12/05/18 10:36 Dose: 999 mls/hr Documented by: [id number] Vancomycin HCl 1,500 mg/ (Sodium Chloride) 530 mls @ 200 mls/hr IV NOW ONE Stop: 12/05/18 15:53 Last Infusion: 12/05/18 15:59 Dose: 0 mls/hr Documented by: [id number] Admin: 12/05/18 15:04 Dose: 200 mls/hr Documented by: [id number] Vancomycin HCl 1,000 mg/ (Sodium Chloride) 270 mls @ 125 mls/hr IV 0800 [facility]; Protocol Stop: 12/06/18 10:10 Last Infusion: 12/06/18 10:39 Dose: 0 mls/hr Documented by: [id number] Admin: 12/06/18 08:25 Dose: 125 mls/hr Documented by: [id number] Description This is a 21 electrode EEG with a single channel dedicated to limited EKG. The electrodes were placed in accordance with the International 10-20 system. Interpretation The predominant background activity consists of irregular 8-9 Hz activity, of up to 30-40 mV in amplitude,seen symmetrically distributed over the posterior head regions bilaterally sparing anteriorly bilaterally. This activity has no significant attenuation with eye opening alerting procedures. Photic stimulation was performed and elicited no change in the background activity and no abnormal responses were seen. Hyperventilation was not performed during this bedside EEG. A consider amount of electrode and movement artifact activity contaminated the recording comma history interpretation from time to time throughout the recording. The patient was extremely diaphoretic and leads were not sticking well. He was not cooperative and was moving his limbs throughout the recording. Throughout the recording there was some higher amplitude slower activity seen superimposed from time to time particularly in the anterior 2/3 of the head region. There were no focal abnormalities otherwise and no potentially epileptogenic discharges were seen. At 1 point, there was some rhythmic movements but, again, no potentially epileptogenic discharges were seen. In summary, this EEG was abnormal showing evidence for mild generalized dysrhythmia. There were no focal abnormalities and no potentially epileptogenic discharges seen, despite his movements. Clinical Correlation The abnormality seen on this EEG generally correlate with a mild encephalopathy which could be due to a wide variety of causes and clinical correlation is required.
[2018-12-07] MEDS: LACTOBACILLUS ACIDOPHILUS (FLORANEX) TAB PO SCH ×3 (08:59→18:16)
[2018-12-07] MEDS: LOSARTAN POTASSIUM 50 MG TAB PO SCH (08:59)
[2018-12-07] MEDS: ALPRAZolam 0.25 MG TABLET PO SCH ×2 (09:00→21:26)
--- NOTE | 2018-12-07 11:30 | Hospitalist Progress Note ---
Date of Service December 07, 2018 Assessment & Plan (1) Fever: Uncertain origin, ongoing since 12/03 with hallucinations and declining communication skills since that time no fever since admission after one dose of Vancomycin no clear source of infection C diff negative UA clear CXR without infiltrate blood cultures negative to date still with confusion and lethargy but a little better repeat CXR on 12/07 clear stop Vancomycin today and observe (2) ARF (acute renal failure): Decreased PO per facility 1L IVF 12/[address] [facility] continue IV fluids Cr improved to 1.0 from 1.8 on admission, suggesting this is all dehydration/prerenal azotemia per patient's , she was trying to get staff at [facility] to get him to drink/eat more discussed with her that this is likely normal clinical course for his Parkinson's disease can hydrate him with IV fluids but he will get dehydrated again after discharge consult palliative (3) C. difficile colitis: Finished abx on 12/01 No further diarrhea per SNF nurse scant amount of diarrhea here tested for C diff, negative for gene (4) Hypertension: continue home meds, BP stable (5) TIA (transient ischemic attack): Hx of episodes CT head negative for acute changes (6) Parkinson's disease: continue home meds Hallucinations, spasms, increased rigidity reviewed consult from Dr. Hayward from prior admission continue Sinemet could consider Nuplazid as outpatient but this requires prior auth long talk with on 12/07, discussed that likely his Parkinson's disease is end stage the issues we are dealing with (dehydration, recurrent infections, altered mental status) stem back to Parkinson's she agrees to talk with palliative discussed code status, will change to DNR as it would not change his clinical course to code him (7) Fall: 12/[address] [facility] Reports no injuries Will need PT/OT once able (8) Anxiety: continue home meds (9) Chronic kidney disease, stage 3a: Cr improved to 1.0, approaching baseline (10) Metabolic encephalopathy: unclear etiology, has severe Parkinson's at baseline no clear infection, recent h/o UTI and C diff colitis checked EEG due to severe shakes and tremors, just showed slowing continue supportive care (11) DVT prophylaxis: SCDs, Heparin for DVT proph Subjective patient still not coming around mostly lethargic, will mutter some responses but not entirely coherent RN concerned about him taking medications, took a long time to swallow 4 pills, concerns for aspiration appetite is very poor no fever since admission, on Vancomycin reviewed labs, Cr down to 1.0 no growth to date on blood cultures EEG with slowing, no seizure activity Echo normal EF, no vegetations seen discussed situation with patient's at the bedside she says that he is more alert and more conversive today compared to how he was at [facility] she says that [facility] was bad experience, he did terribly she just wants to take him home, family and friends tell her that she will be calling 911 all the time, bringing him back to hospital she is unsure about bringing him back, does not think he wants this I brought up the idea of hospice, she agrees that it is time to discuss it the neurologist he followed with in [place] told her that this day would come, she has prepared herself told her that we would have palliative care meet with her tomorrow discussed case with Wendi Burks with palliative, they will see tomorrow Review of Systems Review of Systems: Unobtainable due to cognitive status Physical Exam Constitutional: WD/WN, vitals as above + lethargic Eyes: PERRL, conjunctivae normal, anicteric sclerae ENMT: external ear and nose normal, oropharynx normal Neck: trachea midline, no thyromegaly Respiratory: normal respiratory effort, lungs clear to auscultation Cardiovascular: RRR, no murmur, no edema Gastrointestinal (Abdomen): normal bowel sounds, soft, nontender, no hepatosplenomegaly Musculoskeletal: no cyanosis or clubbing, extremities motor strength 5/5 Skin: no rashes, warm and dry Neurologic: patellar DTR's 2+ bilat, sensation intact and PERRL, EOMI, accommodation nl, no face palsy, no dysarthria Motor/Sensory: + tremor (most notable in right arm) Psychiatric: Orientation: alert and oriented to person; + not oriented to place and + not oriented to time Eye Contact: + fair eye contact Motor Behavior: + tremor Lymphatic: no cervical or axillary lymphadenopathy Results & Data Vital Signs (Past 12 Hours) Vital Signs Temp Pulse Pulse Resp BP BP Pulse Ox 12/07/18 11:02 36.8 C 79 16 153/68 H 98 12/07/18 07:37 79 12/07/18 06:52 36.9 C 78 18 172/66 H 98 12/07/18 03:31 79 161/75 H 12/07/18 03:20 36.7 C 84 18 205/68 H 96 12/07/18 01:33 79 12/07/18 00:53 36.8 C 82 18 167/75 H 97 Laboratory Results Laboratory Results - last 24 hr 12/06/18 12/06/18 12/07/18 10:16 12:40 05:30 Creatinine 1.26 Est Cr Clr Drug Dosing 39.5 Est GFR ( Amer) 60.3 Est GFR (Non-Af Amer) 52.0 POC Glucose 101 H Stl C. diff Tox B Gene Negative Cdiff Gene Diagnostic Findings CT HEAD: IMPRESSION: 1. No acute intracranial abnormality. 2. Chronic findings as above. XR chest 1V portable IMPRESSION: Negative chest. Medications Administered Current Inpatient Medications Acetaminophen (Tylenol) 650 mg PO Q4H PRN PRN Reason: Pain or Fever Stop: 01/04/19 12:45 Alprazolam (Xanax) 0.25 mg PO BID [facility] Stop: 01/04/19 20:59 Last Admin: 12/07/18 09:00 Dose: Not Given Documented by: Amantadine HCl (Symmetrel) 100 mg PO BID [facility] Stop: 01/04/19 20:59 Last Admin: 12/07/18 08:29 Dose: 100 mg Documented by: Amlodipine Besylate (Norvasc) 10 mg PO QAM [facility] Stop: 01/05/19 08:59 Last Admin: 12/07/18 08:29 Dose: 10 mg Documented by: Carbidopa/Levodopa (Sinement Cr 25/100mg) 1 tab PO BID [facility] Stop: 01/04/19 20:59 Last Admin: 12/07/18 08:29 Dose: 1 tab Documented by: Carbidopa/Levodopa (Sinemet 25/100 Mg) 1 tab PO TID [facility] Stop: 01/04/19 13:59 Last Admin: 12/07/18 08:28 Dose: 1 tab Documented by: Heparin Sodium (Beef Lung) (Heparin Sod 10 Unit/Ml Flush) 5 ml FLUSH PRN PRN PRN Reason: Flush Stop: 01/05/19 00:22 Heparin Sodium (Porcine) (Heparin Sodium (Porcine)) 5,000 units SQ Q8 [facility] Stop: 01/04/19 13:59 Last Admin: 12/07/18 06:00 Dose: 5,000 units Documented by: Sodium Chloride (1/2 Nss) 1,000 mls @ 100 mls/hr IV .Q10H [facility] Stop: 01/04/19 12:59 Last Admin: 12/07/18 00:47 Dose: 100 mls/hr Documented by: Vancomycin HCl 1,000 mg/ (Sodium Chloride) 270 mls @ 125 mls/hr IV Q16H [facility]; Protocol Stop: 12/07/18 18:10 Last Infusion: 12/07/18 03:08 Dose: Infused Documented by: Lactobacillus Acidophilus (Floranex) 4 tab PO TIDM [facility] Stop: 01/04/19 12:45 Last Admin: 12/07/18 08:59 Dose: Not Given Documented by: Losartan Potassium (Cozaar) 50 mg PO QAM [facility] Stop: 01/05/19 08:59 Last Admin: 12/07/18 08:59 Dose: Not Given Documented by: Magnesium Hydroxide (Milk Of Magnesia) 30 ml PO Q12H PRN PRN Reason: Constipation Stop: 01/04/19 12:45 Miscellaneous Information (Consult) 1 ea N/A UD PRN PRN Reason: Consult Stop: 01/04/19 12:45 Ondansetron HCl (Zofran) 4 mg IV Q6H PRN PRN Reason: Nausea Stop: 01/04/19 12:45 Ranitidine HCl (Zantac) 150 mg PO BID [facility] Stop: 01/04/19 20:59 Last Admin: 12/07/18 09:00 Dose: Not Given Documented by: PG Care Time/CCT Total # of Minutes Spent Total Time Spent with Patient: Total time spent is greater than 50% in coordination of care (as documented) at patient's floor/unit and/or counseling patient: (1) Fever Fever type: unspecified Qualified Code(s): R50.9 - Fever, unspecified (2) Hypertension Hypertension type: essential hypertension Qualified Code(s): I10 - Essential (primary) hypertension
--- NOTE | 2018-12-07 12:36 | XRay Report ---
XR chest 1V portable CLINICAL HISTORY: fever, encephalopathy fever COMPARISON STUDY: 12/05/2018 FINDINGS: The bones soft tissues and hemidiaphragms are normal. The cardiomediastinal silhouette is n ormal. The lungs are clear. The pulmonary vasculature is normal. IMPRESSION: Negative chest. The above report was generated using voice recognition software. It may contain grammatical, syntax or spelling errors. Electronically signed by: Sarbjit Kothari M.D. 12/07/2018 12:34 PM
--- NOTE | 2018-12-07 13:43 | CT Scan Report ---
CT head/brain wo con CLINICAL HISTORY: 83 years-old Male with encephalopathy. Acute altered mental status TECHNIQUE: Multiple axial CT images of the head were obtained without contrast. A dose lowering tech nique was utilized adhering to the principles of ALARA. COMPARISON: Head CT 11/04/2018. FINDINGS: No acute intracranial hemorrhage, midline shift, intracranial mass, hydrocephalus, territorial ischem ia or abnormal extra-axial collection. Age-related involutional changes with ex vacuo ventriculomegal y. Patchy white matter hypodensities suggest chronic microvascular ischemic disease. Vertebral vascul ar calcifications are noted. The calvarium is intact. Mastoid air cells are clear. Mild mucosal thickening noted about the parana veronica sinuses. No acute calvarial fracture. The orbits and soft tissues are unremarkable. IMPRESSION: 1. No acute intracranial abnormality. 2. Chronic findings as above. The above report was generated using voice recognition software. It may contain grammatical, syntax o r spelling errors. Electronically signed by: Rah Barton M.D. 12/07/2018 1:42 PM
[2018-12-08] MEDS: HEPARIN SOD 5,000 UNIT/0.5 ML VIAL SQ SCH ×3 (06:28→21:34)
[2018-12-08 07:53] LABS: Creatinine Clr Calc Pharmacy 39.8 ml/min; Est GFR (African American) 60.9; Est GFR (Non-African American) 52.5
[2018-12-08] MEDS: CARBIDOPA/LEVODOPA 25/100MG TAB PO SCH ×3 (08:01→21:31)
[2018-12-08] MEDS: LACTOBACILLUS ACIDOPHILUS (FLORANEX) TAB PO SCH ×4 (08:01→17:43)
[2018-12-08] MEDS: LOSARTAN POTASSIUM 50 MG TAB PO SCH (08:01)
[2018-12-08] MEDS: AMLODIPINE BESYLATE 5 MG TAB PO SCH (08:02)
[2018-12-08] MEDS: CARBIDOPA/LEVODOPA 25/100MG EXT REL TAB PO SCH ×2 (08:02→21:31)
[2018-12-08] MEDS: ALPRAZolam 0.25 MG TABLET PO SCH ×2 (08:05→21:36)
[2018-12-08] MEDS: AMANTADINE HCL 100 MG CAPSULE PO SCH (09:03)
--- NOTE | 2018-12-08 10:50 | Palliative Care Consultation ---
Date of Consultation December 08, 2018 Assessment & Plan (1) Goals of care, counseling/discussion: (2) Metabolic encephalopathy: (3) Parkinson's disease: History of Present Illness Attending Physician: Tod Johns DO Allergies Allergy/AdvReac Type Severity Reaction Status Date / Time No Known Allergies Allergy Unverified 12/05/18 10:12 Home Medications Home Medications Medication Instructions Recorded Confirmed Type amantadine HCl 100 mg PO BID 11/04/18 12/05/18 History amlodipine 10 mg PO QAM 11/04/18 12/05/18 History carbidopa-levodopa 1 tab PO BID 11/04/18 12/05/18 History carbidopa-levodopa 1 tab PO TID 11/04/18 12/05/18 History losartan 50 mg PO QAM 11/04/18 12/05/18 History alprazolam 0.25 mg PO BID 12/05/18 12/05/18 History ranitidine HCl 150 mg PO BID 12/05/18 12/05/18 History Patient History Medical History Parkinson's disease (Chronic) Macular degeneration (Chronic) Anxiety Arthritis HTN (hypertension) Family History Other No significant family history Social History Preferred Language: German Communication Ability: Impaired Cheese Wrapper Required: No Beliefs That Will Affect Care: None Current Living Situation: Halfway Other Information That Helps Us Care for You: No Feels Safe at Home: Yes Safety Concerns: Feels Safe At This Time Smoking Status: Former smoker Do You Dip or Chew Tobacco: No Smoking End Date: 1961 Second Hand Exposure: No Tobacco Cessation Education Requested by Patient: No Hx Alcohol Use: No Hx Substance Use: No Results & Data Vital Signs (Past 12 Hours) Vital Signs Temp Pulse Resp BP Pulse Ox 12/08/18 09:05 36.8 C 85 18 161/70 H 98 12/08/18 07:39 36.5 C 78 18 170/68 H 98 PG Care Time/CCT Total # of Minutes Spent Total Time Spent with Patient: Total time spent is greater than 50% in coordination of care (as documented) at patient's floor/unit and/or counseling patient:
[2018-12-08] MEDS: SODIUM CHLORIDE 0.45 % 1,000 ML IV SCH ×2 (12:08→21:30)
--- NOTE | 2018-12-08 19:48 | Hospitalist Progress Note ---
Date of Service December 08, 2018 Assessment & Plan (1) Fever: Uncertain origin, reported prior to admissions, associated with hallucinations and declining communication skills since that time no fever since admission after one dose of Vancomycin no clear source of infection C diff negative UA clear CXR without infiltrate blood cultures negative to date still with altered mental status but getting much better repeat CXR on 12/07 clear stop Vancomycin 12/07, no fevers since (2) ARF (acute renal failure): Decreased PO per facility 1L IVF 12/04 at [facility] continue IV fluids Cr improved to 1.0 from 1.8 on admission, suggesting this is all deh ydration/prerenal azotemia per patient's , she was trying to get staff at [facility] to get him to drink/eat more discussed with her that this is likely normal clinical course for his Parkinson's disease can hydrate him with IV fluids but he will get dehydrated again after discharge consult palliative (3) C. difficile colitis: Finished abx on 12/01 No further diarrhea per SNF nurse scant amount of diarrhea here tested for C diff, negative for gene (4) Hypertension: continue home meds, BP stable (5) TIA (transient ischemic attack): Hx of episodes CT head negative for acute changes (6) Parkinson's disease: continue home meds Hallucinations, spasms, increased rigidity reviewed consult from Dr. Hayward from prior admission continue Sinemet could consider Nuplazid as outpatient but this requires prior auth long talk with on 12/07, discussed that likely his Parkinson's disease is end stage the issues we are dealing with (dehydration, recurrent infections, altered mental status) stem back to Parkinson's she agrees to talk with palliative discussed code status, will change to DNR as it would not change his clinical course to code him (7) Fall: 12/04 at [facility] Reports no injuries Will need PT/OT once able (8) Anxiety: continue home meds (9) Chronic kidney disease, stage 3a: Cr stable (10) Metabolic encephalopathy: unclear etiology, has severe Parkinson's at baseline no clear infection, recent h/o UTI and C diff colitis checked EEG due to severe shakes and tremors, just showed slowing continue supportive care (11) DVT prophylaxis: SCDs, Heparin for DVT proph Plan: palliative consult tomorrow will determine goals of care, possible transition to home hospice Subjective patient a little more conversive today, slightly more alert laying in bed during my visit, not getting up OOB will ask PT/OT to see Cr is stable on labs discussed with palliative care, they will see tomorrow discussed with pharmacy, will lower dose of Amantadine to 50mg BID for renal dosing Review of Systems Review of Systems: Unobtainable due to cognitive status Physical Exam Constitutional: WD/WN, vitals as above Eyes: PERRL, conjunctivae normal, anicteric sclerae ENMT: external ear and nose normal, oropharynx normal Neck: trachea midline, no thyromegaly Respiratory: normal respiratory effort, lungs clear to auscultation Cardiovascular: RRR, no murmur, no edema Gastrointestinal (Abdomen): normal bowel sounds, soft, nontender, no hepatosplenomegaly Musculoskeletal: no cyanosis or clubbing, extremities motor strength 5/5 Skin: no rashes, warm and dry Neurologic: patellar DTR's 2+ bilat, sensation intact and PERRL, EOMI, accommodation nl, no face palsy, no dysarthria Motor/Sensory: + tremor (most notable in right arm) Psychiatric: Orientation: alert and oriented to person; + not oriented to place and + not oriented to time Eye Contact: + fair eye contact Motor Behavior: + tremor Lymphatic: no cervical or axillary lymphadenopathy Results & Data Vital Signs (Past 12 Hours) Vital Signs Temp Pulse Pulse Resp BP Pulse Ox 12/08/18 15:46 36.5 C 74 18 156/68 H 98 12/08/18 12:10 36.5 C 71 18 166/74 H 99 12/08/18 09:05 36.8 C 85 18 161/70 H 98 Laboratory Results Laboratory Results - last 24 hr 12/08/18 06:55 Creatinine 1.25 Est Cr Clr Drug Dosing 39.8 Est GFR ( Amer) 60.9 Est GFR (Non-Af Amer) 52.5 Medications Administered Current Inpatient Medications Acetaminophen (Tylenol) 650 mg PO Q4H PRN PRN Reason: Pain or Fever Stop: 01/04/19 12:45 Alprazolam (Xanax) 0.25 mg PO BID [facility] Stop: 01/04/19 20:59 Last Admin: 12/08/18 08:05 Dose: 0.25 mg Documented by: Amantadine HCl (Symmetrel) 50 mg PO BID [facility] Stop: 01/07/19 20:59 Amlodipine Besylate (Norvasc) 10 mg PO QAM [facility] Stop: 01/05/19 08:59 Last Admin: 12/08/18 08:02 Dose: 10 mg Documented by: Carbidopa/Levodopa (Sinement Cr 25/100mg) 1 tab PO BID [facility] Stop: 01/04/19 20:59 Last Admin: 12/08/18 08:02 Dose: 1 tab Documented by: Carbidopa/Levodopa (Sinemet 25/100 Mg) 1 tab PO TID [facility] Stop: 01/04/19 13:59 Last Admin: 12/08/18 13:31 Dose: 1 tab Documented by: Heparin Sodium (Beef Lung) (Heparin Sod 10 Unit/Ml Flush) 5 ml FLUSH PRN PRN PRN Reason: Flush Stop: 01/05/19 00:22 Heparin Sodium (Porcine) (Heparin Sodium (Porcine)) 5,000 units SQ Q8 [facility] Stop: 01/04/19 13:59 Last Admin: 12/08/18 13:24 Dose: 5,000 units Documented by: Sodium Chloride (1/2 Nss) 1,000 mls @ 100 mls/hr IV .Q10H [facility] Stop: 01/04/19 12:59 Last Admin: 12/08/18 12:08 Dose: 100 mls/hr Documented by: Lactobacillus Acidophilus (Floranex) 4 tab PO TIDM [facility] Stop: 01/04/19 12:45 Last Admin: 12/08/18 17:43 Dose: 4 tab Documented by: Losartan Potassium (Cozaar) 50 mg PO QAM [facility] Stop: 01/05/19 08:59 Last Admin: 12/08/18 08:01 Dose: 50 mg Documented by: Magnesium Hydroxide (Milk Of Magnesia) 30 ml PO Q12H PRN PRN Reason: Constipation Stop: 01/04/19 12:45 Ondansetron HCl (Zofran) 4 mg IV Q6H PRN PRN Reason: Nausea Stop: 01/04/19 12:45 Ranitidine HCl (Zantac) 150 mg PO BID [facility] Stop: 01/04/19 20:59 Last Admin: 12/08/18 08:01 Dose: 150 mg Documented by: PG Care Time/CCT Total # of Minutes Spent Total Time Spent with Patient: Total time spent is greater than 50% in coordination of care (as documented) at patient's floor/unit and/or counseling patient: (1) Fever Fever type: unspecified Qualified Code(s): R50.9 - Fever, unspecified (2) Hypertension Hypertension type: essential hypertension Qualified Code(s): I10 - Essential (primary) hypertension
[2018-12-08] MEDS: AMANTADINE HCL SYRUP 50 MG/5 ML UDP PO SCH (21:33)
[2018-12-09] MEDS: HEPARIN SOD 5,000 UNIT/0.5 ML VIAL SQ SCH ×3 (06:29→21:01)
[2018-12-09] MEDS: SODIUM CHLORIDE 0.45 % 1,000 ML IV SCH ×2 (06:33→16:47)
[2018-12-09] MEDS: LACTOBACILLUS ACIDOPHILUS (FLORANEX) TAB PO SCH ×3 (08:40→16:47)
[2018-12-09] MEDS: AMLODIPINE BESYLATE 5 MG TAB PO SCH (08:40)
[2018-12-09] MEDS: CARBIDOPA/LEVODOPA 25/100MG EXT REL TAB PO SCH ×2 (08:40→20:13)
[2018-12-09] MEDS: CARBIDOPA/LEVODOPA 25/100MG TAB PO SCH ×3 (08:40→20:14)
[2018-12-09] MEDS: LOSARTAN POTASSIUM 50 MG TAB PO SCH (08:40)
[2018-12-09] MEDS: AMANTADINE HCL SYRUP 50 MG/5 ML UDP PO SCH ×2 (08:41→20:13)
[2018-12-09] MEDS: ALPRAZolam 0.25 MG TABLET PO SCH ×2 (08:43→21:01)
--- NOTE | 2018-12-09 10:54 | Palliative Care Consultation ---
Date of Consultation December 09, 2018 Assessment & Plan (1) Palliative care encounter: This is an 83 year old male who was transferred to the [facility] from [facility] where he is a resident for evaluation of hallucinations and fever of unknown origin. Patient had a recent admission two weeks ago with similar presentation and was diagnosed with a UTI. The patient has a PMH that includes advanced Parkinson's Disease with behavioral disturbances, ARF, and anxiety. No active infection has been identified this admission as his stool and urine were negative, blood cultures were negative and a chest x-ray was negative. Two days ago, the Hospitalist spoke in detail with the patients , Sally about his poor prognosis and overall decline. It appears he has, at this time, returned to her baseline. The patients has expressed that she does not want him to return to [facility], but instead expressed interest in the possibility of returning home with hospice services. Palliative Care was consulted. -I met patient in room 387. -Patient opened his eyes to his name and was able to tell me he was not in any pain. He also was able to verbalize his birthday and his 's name. -The patients speech is very garbled, which, apparently is his baseline with his advanced PD. -The patient was able to follow simple commands. -I did reach out to the patients , Sally ([phone]) and left a VM to discuss POC further. -In discussion with Case Management, the patient has Omni and does not require any equipment. -Per the Hospitalist, patient is stable for discharge once is comfortable with transition. There are caregivers at the home to assist with care. -I did meet with the patient, his , Allie from Case management and Dr. Johns to discuss goals of care. In conversation, the patient states that she doesn't want him to pass away right away and he has "some good life left". I talked extensively about hospice and their focusing on quality of life, quality care and management of his disease. In discussion, she stated that her mother was a hospice patient. She said "she had a heart condition that they decided not to intervene and they went home with hospice and she 4 days later". I reassured her that her 's chronic illness is not similar and there would be time to fully utilize the benefits of hospice to develop rapport for whenever his demise would be. She was receptive to talk to someone from Hospice. Case Management discussed agencies and per the 's choice, she chose [facility] and Allie contacted them for them to meet with her, which is planned to happen at 1400 today. -A POLST form was completed and signed by the patients indicating DNR, limited intervention, trial abx, no artificial nutrition or hydration. -Patient does have two additional caregivers at home (two [employer] MEMBER's), alone with her plan to meet with [facility] [employer] in the patients room today to possible hire additional caregivers. -PPS: 20% (2) Parkinson's disease: (3) Chronic kidney disease, stage 3a: (4) Fever: Fever type: unspecified Qualified Code(s): R50.9 - Fever, unspecified History of Present Illness Reason for Consultation: Goals of Care Requesting Physician: Dr. Johns Attending Physician: Tod Johns, DO History of Present Illness This is an 83 year old male who was transferred to the [facility] from [facility] where he is a resident for evaluation of hallucinations and fever of unknown origin. Patient had a recent admission two weeks ago with similar presentation and was diagnosed with a UTI. The patient has a PMH that includes advanced Parkinson's Disease with behavioral disturbances, ARF, and anxiety. No active infection has been identified this admission as his stool and urine were negative, blood cultures were negative and a chest x-ray was negative. Two days ago, the Hospitalist spoke in detail with the patients Sally about his poor prognosis and overall decline. It appears he has, at this time, returned to her baseline. The patients has expressed that she does not want him to return to [facility], but instead expressed interest in the possibility of returning home with hospice services. Palliative Care was consulted. Please see A/P for further details. We will follow to continue to assist with decision making and plan of care. Thank you for involving Palliative Care with this patient. Allergies Allergy/AdvReac Type Severity Reaction Status Date / Time No Known Allergies Allergy Unverified 12/05/18 10:12 Home Medications Home Medications Medication Instructions Recorded Confirmed Type amantadine HCl 100 mg PO BID 11/04/18 12/05/18 History amlodipine 10 mg PO QAM 11/04/18 12/05/18 History carbidopa-levodopa 1 tab PO BID 11/04/18 12/05/18 History carbidopa-levodopa 1 tab PO TID 11/04/18 12/05/18 History losartan 50 mg PO QAM 11/04/18 12/05/18 History alprazolam 0.25 mg PO BID 12/05/18 12/05/18 History ranitidine HCl 150 mg PO BID 12/05/18 12/05/18 History Patient History Medical History Parkinson's disease (Chronic) Macular degeneration (Chronic) Anxiety Arthritis HTN (hypertension) Family History Other No significant family history Social History Preferred Language: Trinidadian Communication Ability: Impaired Immunopathologist Required: No Beliefs That Will Affect Care: None Current Living Situation: Shelter Other Information That Helps Us Care for You: No Feels Safe at Home: Yes Safety Concerns: Feels Safe At This Time Smoking Status: Former smoker Do You Dip or Chew Tobacco: No Smoking End Date: 1961 Second Hand Exposure: No Tobacco Cessation Education Requested by Patient: No Hx Alcohol Use: No Hx Substance Use: No Review of Systems Review of Systems: Unobtainable due to cognitive status Physical Exam Constitutional: + ill appearing and + lethargic Eyes: PERRL, conjunctivae normal, anicteric sclerae Neck: trachea midline, no thyromegaly Respiratory: normal respiratory effort and + cough Cardiovascular: RRR, no murmur, no edema Extremities: normal capillary refill Gastrointestinal (Abdomen): normal bowel sounds, soft, nontender, no hepatosplenomegaly Musculoskeletal: no cyanosis or clubbing, extremities motor strength 5/5 Skin: no rashes, warm and dry Psychiatric: Orientation: alert, oriented to person and cooperative Motor Behavior: + tremor Lymphatic: no cervical or axillary lymphadenopathy Results & Data Vital Signs (Past 12 Hours) Vital Signs Temp Pulse Pulse Resp BP Pulse Ox 12/09/18 07:12 36.6 C 76 18 174/75 H 97 12/08/18 23:11 36.9 C 78 16 151/61 H 97 PG Care Time/CCT Total # of Minutes Spent Total Time Spent: 100 Total Time Spent with Patient: Total time spent is greater than 50% in coordination of care (as documented) at patient's floor/unit and/or counseling patient: 100 Prolonged Care Time Prolonged Care Time: Yes Total Prolonged Care Time: 100 Time Spent Midlevel Total time spent 100 minutes with > 50% of that time spent assessing the patient, discussing goals of care with patient and completing a polst form.
--- NOTE | 2018-12-09 16:00 | Hospitalist Progress Note ---
Date of Service December 09, 2018 Assessment & Plan (1) Fever: Uncertain origin, reported prior to admissions, associated with hallucinations and declining communication skills since that time no fever since admission after one dose of Vancomycin no clear source of infection C diff negative UA clear CXR without infiltrate blood cultures negative to date repeat CXR on 12/07 clear stopped Vancomycin 12/07, no fevers since in summary, no source of infection identified (2) ARF (acute renal failure): Decreased PO intake at [facility] per patient's 1L IVF 12/04 at [facility] continue IV fluids for time being Cr improved to 1.0 from 1.8 on admission, suggesting this is all dehydration/prerenal azotemia per patient's , she was trying to get staff at [facility] to get him to drink/eat more discussed with her that this is likely normal clinical course for his Parkinson's disease can hydrate him with IV fluids but he will get dehydrated again after discharge patient's feels she can get him to drink more at home with her and aides plan to go home (3) C. difficile colitis: Finished abx on 12/01 No further diarrhea per SNF nurse scant amount of diarrhea here tested for C diff, negative for gene (4) Hypertension: continue home meds, BP stable (5) TIA (transient ischemic attack): Hx of episodes CT head negative for acute changes (6) Parkinson's disease: continue home meds reduced dose of Amantadine to 50mg BID from 100mg BID Hallucinations, spasms, increased rigidity reviewed consult from Dr. Hayward from prior admission continue Sinemet could consider Nuplazid as outpatient but this requires prior auth long talk with on 12/07 and 12/09, discussed that likely his Parkinson's disease is end stage the issues we are dealing with (dehydration, recurrent infections, altered mental status) stem back to Parkinson's she agrees to talk with palliative discussed code status, will change to DNR as it would not change his clinical course to code him will plan on home hospice starting 12/13/18, plan for discharge home on that day (7) Fall: 12/04 at [facility] Reports no injuries not really participating with therapy, unsure how much rehab potential he has plan to go home on hospice (8) Anxiety: continued on home meds (9) Chronic kidney disease, stage 3a: Cr stable (10) Metabolic encephalopathy: unclear etiology, has severe Parkinson's at baseline no clear infection, recent h/o UTI and C diff colitis checked EEG due to severe shakes and tremors, just showed slowing continue supportive care has some waxing and waning so he might have some mild delirium yesterday was a better day than today (11) DVT prophylaxis: SCDs, Heparin for DVT proph Plan: home on hospice on Thursday, his is getting more support in place over the weekend Subjective patient doing well today, a little less conversive than yesterday updated his at the bedside again, discussed situation with patient, goals of care he has advanced Parkinson's disease, worried that it is end stage discussed hospice again and she was ready to speak with CM and palliative care GRAPHIC USER INTERFACE DESIGNER with palliative care spent an hour with patient today plans in place for hospice at home, patient's needs to wait until Thursday for support services to be in place no labs today, will check tomorrow Review of Systems Review of Systems: Unobtainable due to cognitive status Physical Exam Constitutional: WD/WN, vitals as above Eyes: PERRL, conjunctivae normal, anicteric sclerae ENMT: external ear and nose normal, oropharynx normal Neck: trachea midline, no thyromegaly Respiratory: normal respiratory effort, lungs clear to auscultation Cardiovascular: RRR, no murmur, no edema Gastrointestinal (Abdomen): normal bowel sounds, soft, nontender, no hepatosplenomegaly Musculoskeletal: no cyanosis or clubbing, extremities motor strength 5/5 Skin: no rashes, warm and dry Neurologic: patellar DTR's 2+ bilat, sensation intact and PERRL, EOMI, accommodation nl, no face palsy, no dysarthria Motor/Sensory: + tremor (most notable in right arm) Psychiatric: Orientation: alert and oriented to person; + not oriented to place and + not oriented to time Eye Contact: + fair eye contact Motor Behavior: + tremor Lymphatic: no cervical or axillary lymphadenopathy Results & Data Vital Signs (Past 12 Hours) Vital Signs Temp Pulse Pulse Resp BP BP Pulse Ox 12/09/18 15:41 36.5 C 71 17 153/61 H 100 12/09/18 07:12 36.6 C 76 18 174/75 H 97 Medications Administered Current Inpatient Medications Acetaminophen (Tylenol) 650 mg PO Q4H PRN PRN Reason: Pain or Fever Stop: 01/04/19 12:45 Alprazolam (Xanax) 0.25 mg PO BID [facility] Stop: 01/04/19 20:59 Last Admin: 12/09/18 08:43 Dose: 0.25 mg Documented by: Amantadine HCl (Symmetrel) 50 mg PO BID [facility] Stop: 01/07/19 20:59 Last Admin: 12/09/18 08:41 Dose: 50 mg Documented by: Amlodipine Besylate (Norvasc) 10 mg PO QAM [facility] Stop: 01/05/19 08:59 Last Admin: 12/09/18 08:40 Dose: 10 mg Documented by: Carbidopa/Levodopa (Sinement Cr 25/100mg) 1 tab PO BID [facility] Stop: 01/04/19 20:59 Last Admin: 12/09/18 08:40 Dose: 1 tab Documented by: Carbidopa/Levodopa (Sinemet 25/100 Mg) 1 tab PO TID [facility] Stop: 01/04/19 13:59 Last Admin: 12/09/18 13:36 Dose: 1 tab Documented by: Heparin Sodium (Beef Lung) (Heparin Sod 10 Unit/Ml Flush) 5 ml FLUSH PRN PRN PRN Reason: Flush Stop: 01/05/19 00:22 Heparin Sodium (Porcine) (Heparin Sodium (Porcine)) 5,000 units SQ Q8 [facility] Stop: 01/04/19 13:59 Last Admin: 12/09/18 13:36 Dose: 5,000 units Documented by: Sodium Chloride (1/2 Nss) 1,000 mls @ 100 mls/hr IV .Q10H [facility] Stop: 01/04/19 12:59 Last Admin: 12/09/18 06:33 Dose: 100 mls/hr Documented by: Lactobacillus Acidophilus (Floranex) 4 tab PO TIDM [facility] Stop: 01/04/19 12:45 Last Admin: 12/09/18 13:36 Dose: 4 tab Documented by: Losartan Potassium (Cozaar) 50 mg PO QAM [facility] Stop: 01/05/19 08:59 Last Admin: 12/09/18 08:40 Dose: 50 mg Documented by: Magnesium Hydroxide (Milk Of Magnesia) 30 ml PO Q12H PRN PRN Reason: Constipation Stop: 01/04/19 12:45 Ondansetron HCl (Zofran) 4 mg IV Q6H PRN PRN Reason: Nausea Stop: 01/04/19 12:45 Ranitidine HCl (Zantac) 150 mg PO BID [facility] Stop: 01/04/19 20:59 Last Admin: 12/09/18 08:40 Dose: 150 mg Documented by: PG Care Time/CCT Total # of Minutes Spent Total Time Spent with Patient: Total time spent is greater than 50% in coordination of care (as documented) at patient's floor/unit and/or counseling patient: (1) Fever Fever type: unspecified Qualified Code(s): R50.9 - Fever, unspecified (2) Hypertension Hypertension type: essential hypertension Qualified Code(s): I10 - Essential (primary) hypertension
[2018-12-10] MEDS: SODIUM CHLORIDE 0.45 % 1,000 ML IV SCH ×3 (02:42→21:52)
[2018-12-10] MEDS: HEPARIN SOD 5,000 UNIT/0.5 ML VIAL SQ SCH ×3 (06:10→21:20)
[2018-12-10 07:04] LABS: Hematocrit (blood only) 32.3 % (42-52); Hemoglobin 10.6 g/dL (14.0-18.0); Mean Corpuscular Hgb Conc 32.8 g/dL (32-36); Mean Corpuscular Volume 95.8 fL (80-100); Mean Platelet Volume 9.7 fL (7.4-10.4); Platelet Count 222 K/uL (130-400); RDW Coefficient of Variation 13.2 % (11.5-14.5); RDW Standard Deviation 45.9 fL (36.4-46.3); Red Blood Count 3.37 M/uL (4.7-6.1)
[2018-12-10 07:29] LABS: BUN Creatinine Ratio 12.2 (10-20); Calcium 8.9 mg/dl (8.5-10.1); Creatinine Clr Calc Pharmacy 44.4 ml/min; Est GFR (African American) 69.5; Potassium 3.7 mmol/L (3.5-5.1)
[2018-12-10] MEDS: CARBIDOPA/LEVODOPA 25/100MG EXT REL TAB PO SCH ×2 (08:45→20:45)
[2018-12-10] MEDS: CARBIDOPA/LEVODOPA 25/100MG TAB PO SCH ×3 (08:45→20:45)
[2018-12-10] MEDS: ALPRAZolam 0.25 MG TABLET PO SCH ×2 (08:45→21:21)
[2018-12-10] MEDS: LACTOBACILLUS ACIDOPHILUS (FLORANEX) TAB PO SCH ×3 (08:46→16:42)
[2018-12-10] MEDS: LOSARTAN POTASSIUM 50 MG TAB PO SCH (08:46)
[2018-12-10] MEDS: AMANTADINE HCL SYRUP 50 MG/5 ML UDP PO SCH ×2 (08:46→22:22)
[2018-12-10] MEDS: AMLODIPINE BESYLATE 5 MG TAB PO SCH (08:46)
--- NOTE | 2018-12-10 16:07 | Hospitalist Progress Note ---
Date of Service December 10, 2018 Assessment & Plan (1) Fever: Uncertain origin, reported prior to admissions, associated with hallucinations and declining communication skills since that time no fever since admission after one dose of Vancomycin no clear source of infection C diff negative UA clear CXR without infiltrate blood cultures negative to date repeat CXR on 12/07 clear stopped Vancomycin 12/07, no fevers since in summary, no source of infection identified and fevers resolved (2) ARF (acute renal failure): Decreased PO intake at [facility] per patient's 1L IVF 12/04 at [facility] continue IV fluids for time being Cr improved to 1.0 from 1.8 on admission, suggesting this is all dehydration/prerenal azotemia per patient's , she was trying to get staff at [facility] to get him to drink/eat more discussed with her that this is likely normal clinical course for his Parkinson's disease can hydrate him with IV fluids but he will get dehydrated again after discharge patient's feels she can get him to drink more at home with her and aides plan to go home with hospice (3) C. difficile colitis: Finished abx on 12/01 No further diarrhea per SNF nurse scant amount of diarrhea here tested for C diff, negative for gene (4) Hypertension: continue home meds, BP stable (5) TIA (transient ischemic attack): Hx of episodes CT head negative for acute changes (6) Parkinson's disease: continue home meds reduced dose of Amantadine to 50mg BID from 100mg BID Hallucinations, spasms, increased rigidity reviewed consult from Dr. Hayward from prior admission continue Sinemet could consider Nuplazid as outpatient but this requires prior auth long talk with on 12/07 and 12/09, discussed that likely his Parkinson's disease is end stage the issues we are dealing with (dehydration, recurrent infections, altered mental status) stem back to Parkinson's she agrees to talk with palliative discussed code status, will change to DNR as it would not change his clinical course to code him will plan on home hospice starting 12/13/18, plan for discharge home on that day (7) Fall: 12/04 at [facility] Reports no injuries not really participating with therapy, unsure how much rehab potential he has plan to go home on hospice (8) Anxiety: continued on home meds (9) Chronic kidney disease, stage 3a: Cr stable today on AM labs (10) Metabolic encephalopathy: unclear etiology, has severe Parkinson's at baseline no clear infection, recent h/o UTI and C diff colitis checked EEG due to severe shakes and tremors, just showed slowing continue supportive care has some waxing and waning so he might have some mild delirium continues to have good days and bad days his says this is typical, even at home (11) DVT prophylaxis: SCDs, Heparin for DVT proph Plan: home on hospice on Thursday, his is getting more support in place over the weekend Subjective patient resting comfortably today eating well when encouraged no acute changes over night check labs, CBC and BMP stable, no changes still on board with taking home on Thursday with home hospice Review of Systems Review of Systems: Unobtainable due to cognitive status Physical Exam Constitutional: WD/WN, vitals as above Eyes: PERRL, conjunctivae normal, anicteric sclerae ENMT: external ear and nose normal, oropharynx normal Neck: trachea midline, no thyromegaly Respiratory: normal respiratory effort, lungs clear to auscultation Cardiovascular: RRR, no murmur, no edema Gastrointestinal (Abdomen): normal bowel sounds, soft, nontender, no hepatosplenomegaly Musculoskeletal: no cyanosis or clubbing, extremities motor strength 5/5 Skin: no rashes, warm and dry Neurologic: patellar DTR's 2+ bilat, sensation intact and PERRL, EOMI, accommodation nl, no face palsy, no dysarthria Motor/Sensory: + tremor (most notable in right arm) Psychiatric: Orientation: alert and oriented to person; + not oriented to place and + not oriented to time Eye Contact: + fair eye contact Motor Behavior: + tremor Lymphatic: no cervical or axillary lymphadenopathy Results & Data Vital Signs (Past 12 Hours) Vital Signs Temp Pulse Pulse Resp BP Pulse Ox 12/10/18 15:08 36.7 C 77 16 143/62 H 100 12/10/18 11:52 98 12/10/18 08:02 36.5 C 82 18 152/64 H 100 Laboratory Results Laboratory Results - last 24 hr 12/10/18 12/10/18 06:30 06:30 WBC 7.20 RBC 3.37 L Hgb 10.6 L Hct 32.3 L MCV 95.8 MCH 31.5 MCHC 32.8 RDW Std Deviation 45.9 RDW Coeff of Alo 13.2 Plt Count 222 MPV 9.7 Sodium 138 Potassium 3.7 Chloride 107 Carbon Dioxide 23 Anion Gap 8.0 BUN 14 Creatinine 1.12 Est Cr Clr Drug Dosing 44.4 Est GFR ( Amer) 69.5 Est GFR (Non-Af Amer) 60.0 BUN/Creatinine Ratio 12.2 Glucose 103 H Calcium 8.9 Medications Administered Current Inpatient Medications Acetaminophen (Tylenol) 650 mg PO Q4H PRN PRN Reason: Pain or Fever Stop: 01/04/19 12:45 Alprazolam (Xanax) 0.25 mg PO BID OSIEL Stop: 01/08/19 20:59 Last Admin: 12/10/18 08:45 Dose: 0.25 mg Documented by: Amantadine HCl (Symmetrel) 50 mg PO BID OSIEL Stop: 01/07/19 20:59 Last Admin: 12/10/18 08:46 Dose: 50 mg Documented by: Amlodipine Besylate (Norvasc) 10 mg PO QAM OSIEL Stop: 01/05/19 08:59 Last Admin: 12/10/18 08:46 Dose: 10 mg Documented by: Carbidopa/Levodopa (Sinement Cr 25/100mg) 1 tab PO BID OSIEL Stop: 01/04/19 20:59 Last Admin: 12/10/18 08:45 Dose: 1 tab Documented by: Carbidopa/Levodopa (Sinemet 25/100 Mg) 1 tab PO TID OSIEL Stop: 01/04/19 13:59 Last Admin: 12/10/18 12:52 Dose: 1 tab Documented by: Heparin Sodium (Beef Lung) (Heparin Sod 10 Unit/Ml Flush) 5 ml FLUSH PRN PRN PRN Reason: Flush Stop: 01/05/19 00:22 Heparin Sodium (Porcine) (Heparin Sodium (Porcine)) 5,000 units SQ Q8 OSIEL Stop: 01/04/19 13:59 Last Admin: 12/10/18 12:52 Dose: 5,000 units Documented by: Sodium Chloride (1/2 Nss) 1,000 mls @ 100 mls/hr IV .Q10H OSIEL Stop: 01/04/19 12:59 Last Admin: 12/10/18 12:49 Dose: 100 mls/hr Documented by: Lactobacillus Acidophilus (Floranex) 4 tab PO TIDM [facility] Stop: 01/04/19 12:45 Last Admin: 12/10/18 12:52 Dose: 4 tab Documented by: Losartan Potassium (Cozaar) 50 mg PO QAM [facility] Stop: 01/05/19 08:59 Last Admin: 12/10/18 08:46 Dose: 50 mg Documented by: Magnesium Hydroxide (Milk Of Magnesia) 30 ml PO Q12H PRN PRN Reason: Constipation Stop: 01/04/19 12:45 Ondansetron HCl (Zofran) 4 mg IV Q6H PRN PRN Reason: Nausea Stop: 01/04/19 12:45 Ranitidine HCl (Zantac) 150 mg PO BID [facility] Stop: 01/04/19 20:59 Last Admin: 12/10/18 08:46 Dose: 150 mg Documented by: PG Care Time/CCT Total # of Minutes Spent Total Time Spent with Patient: Total time spent is greater than 50% in coordination of care (as documented) at patient's floor/unit and/or counseling patient: (1) Fever Fever type: unspecified Qualified Code(s): R50.9 - Fever, unspecified (2) Hypertension Hypertension type: essential hypertension Qualified Code(s): I10 - Essential (primary) hypertension
[2018-12-11] MEDS: HEPARIN SOD 5,000 UNIT/0.5 ML VIAL SQ SCH ×3 (05:52→21:28)
[2018-12-11] MEDS: SODIUM CHLORIDE 0.45 % 1,000 ML IV SCH ×2 (07:31→16:58)
[2018-12-11] MEDS: AMLODIPINE BESYLATE 5 MG TAB PO SCH (08:24)
[2018-12-11] MEDS: LACTOBACILLUS ACIDOPHILUS (FLORANEX) TAB PO SCH ×3 (08:24→17:58)
[2018-12-11] MEDS: LOSARTAN POTASSIUM 50 MG TAB PO SCH (08:24)
[2018-12-11] MEDS: CARBIDOPA/LEVODOPA 25/100MG EXT REL TAB PO SCH ×2 (08:24→20:19)
[2018-12-11] MEDS: CARBIDOPA/LEVODOPA 25/100MG TAB PO SCH ×3 (08:24→20:19)
[2018-12-11] MEDS: ALPRAZolam 0.25 MG TABLET PO SCH ×2 (08:26→20:19)
[2018-12-11] MEDS: AMANTADINE HCL SYRUP 50 MG/5 ML UDP PO SCH ×2 (08:33→20:20)
--- NOTE | 2018-12-11 21:20 | Hospitalist Progress Note ---
Date of Service December 11, 2018 Assessment & Plan (1) Fever: Uncertain origin, reported prior to admissions, associated with hallucinations and declining communication skills since that time no fever since admission after one dose of Vancomycin no clear source of infection C diff negative UA clear CXR without infiltrate blood cultures negative to date repeat CXR on 12/07 clear stopped Vancomycin 12/07, no fevers since in summary, no source of infection identified and fevers resolved (2) ARF (acute renal failure): Decreased PO intake at [facility] per patient's 1L IVF 12/04 at [facility] continue IV fluids for time being Cr improved to 1.0 from 1.8 on admission, suggesting this is all dehydration/prerenal azotemia per patient's , she was trying to get staff at [facility] to get him to drink/eat more discussed with her that this is likely normal clinical course for his Parkinson's disease can hydrate him with IV fluids but he will get dehydrated again after discharge patient's feels she can get him to drink more at home with her and aides plan to go home with hospice on Thursday (3) C. difficile colitis: Finished abx on 12/01 No further diarrhea per SNF nurse scant amount of diarrhea here tested for C diff, negative for gene (4) Hypertension: continue home meds, BP stable (5) TIA (transient ischemic attack): Hx of episodes CT head negative for acute changes (6) Parkinson's disease: continue home meds reduced dose of Amantadine to 50mg BID from 100mg BID Hallucinations, spasms, increased rigidity reviewed consult from Dr. Hayward from prior admission continue Sinemet could consider Nuplazid as outpatient but this requires prior auth long talk with on 12/07 and 12/09, discussed that likely his Parkinson's disease is end stage the issues we are dealing with (dehydration, recurrent infections, altered mental status) stem back to Parkinson's she agrees to talk with palliative discussed code status, will change to DNR as it would not change his clinical course to code him will plan on home hospice starting 12/13/18, plan for discharge home on that day (7) Fall: 12/04 at [facility] Reports no injuries not really participating with therapy, unsure how much rehab potential he has plan to go home on hospice (8) Anxiety: continued on home meds (9) Chronic kidney disease, stage 3a: Cr stable (10) Metabolic encephalopathy: unclear etiology, has severe Parkinson's at baseline no clear infection, recent h/o UTI and C diff colitis checked EEG due to severe shakes and tremors, just showed slowing continue supportive care has some waxing and waning so he might have some mild delirium continues to have good days and bad days his says this is typical, even at home (11) DVT prophylaxis: SCDs, Heparin for DVT proph Plan: home on hospice on Thursday, his is getting more support in place over the weekend No change in plan, Spent 35 minutes in management; included chart review, interview with patient, documentation. Subjective 83 yo male reports no new changes. Patient is looking forward to go home on Thursday. Review of Systems Review of Systems: Unobtainable due to cognitive status Physical Exam Physical Exam: Constitutional: WD/WN, vitals as above Eyes: PERRL, conjunctivae normal, anicteric sclerae ENMT: external ear and nose normal, oropharynx normal Neck: trachea midline, no thyromegaly Respiratory: normal respiratory effort, lungs clear to auscultation Cardiovascular: RRR, no murmur, no edema Gastrointestinal (Abdomen): normal bowel sounds, soft, nontender, no hepatosplenomegaly Musculoskeletal: no cyanosis or clubbing, extremities motor strength 5/5 Skin: no rashes, warm and dry Neurologic: patellar DTR's 2+ bilat, sensation intact and PERRL, EOMI, accommodation nl, no face palsy, no dysarthria Motor/Sensory: + tremor (most notable in right arm) Psychiatric: Orientation: alert and oriented to person; Motor Behavior: + tremor Lymphatic: no cervical or axillary lymphadenopathy Results & Data Vital Signs (Past 12 Hours) Vital Signs Temp Pulse Resp BP Pulse Ox 12/11/18 15:50 36.4 C L 72 16 169/68 H 99 PG Care Time/CCT Total # of Minutes Spent Total Time Spent with Patient: Total time spent is greater than 50% in coordination of care (as documented) at patient's floor/unit and/or counseling patient: (1) Fever Fever type: unspecified Qualified Code(s): R50.9 - Fever, unspecified (2) Hypertension Hypertension type: essential hypertension Qualified Code(s): I10 - Essential (primary) hypertension
[2018-12-12] MEDS: SODIUM CHLORIDE 0.45 % 1,000 ML IV SCH ×2 (02:35→11:39)
[2018-12-12] MEDS: HEPARIN SOD 5,000 UNIT/0.5 ML VIAL SQ SCH ×3 (06:23→21:09)
[2018-12-12] MEDS: CARBIDOPA/LEVODOPA 25/100MG EXT REL TAB PO SCH ×2 (08:35→21:11)
[2018-12-12] MEDS: LOSARTAN POTASSIUM 50 MG TAB PO SCH (08:35)
[2018-12-12] MEDS: LACTOBACILLUS ACIDOPHILUS (FLORANEX) TAB PO SCH ×3 (08:35→17:53)
[2018-12-12] MEDS: AMANTADINE HCL SYRUP 50 MG/5 ML UDP PO SCH ×2 (08:35→21:12)
[2018-12-12] MEDS: CARBIDOPA/LEVODOPA 25/100MG TAB PO SCH ×3 (08:35→21:11)
[2018-12-12] MEDS: AMLODIPINE BESYLATE 5 MG TAB PO SCH (08:36)
[2018-12-12] MEDS: ALPRAZolam 0.25 MG TABLET PO SCH ×2 (08:37→21:11)
--- NOTE | 2018-12-12 22:42 | Hospitalist Progress Note ---
Date of Service December 12, 2018 Assessment & Plan (1) Fever: Uncertain origin, reported prior to admissions, associated with hallucinations and declining communication skills since that time no fever since admission after one dose of Vancomycin no clear source of infection C diff negative UA clear CXR without infiltrate blood cultures negative to date repeat CXR on 12/07 clear stopped Vancomycin 12/07, no fevers since in summary, no source of infection identified and fevers resolved (2) ARF (acute renal failure): Decreased PO intake at [facility] per patient's 1L IVF 12/[address] [facility] continue IV fluids for time being Cr improved to 1.0 from 1.8 on admission, suggesting this is all dehydration/prerenal azotemia per patient's , she was trying to get staff at [facility] to get him to drink/eat more discussed with her that this is likely normal clinical course for his Parkinson's disease can hydrate him with IV fluids but he will get dehydrated again after discharge patient's feels she can get him to drink more at home with her and aides plan to go home with hospice on Thursday (tomorrow) (3) C. difficile colitis: Finished abx on 12/01 No further diarrhea per SNF nurse scant amount of diarrhea here tested for C diff, negative for gene (4) Hypertension: continue home meds, BP stable (5) TIA (transient ischemic attack): Hx of episodes CT head negative for acute changes (6) Parkinson's disease: continue home meds reduced dose of Amantadine to 50mg BID from 100mg BID Hallucinations, spasms, increased rigidity reviewed consult from Dr. Hayward from prior admission continue Sinemet could consider Nuplazid as outpatient but this requires prior auth long talk with on 12/07 and 12/09, discussed that likely his Parkinson's disease is end stage the issues we are dealing with (dehydration, recurrent infections, altered mental status) stem back to Parkinson's she agrees to talk with palliative discussed code status, will change to DNR as it would not change his clinical course to code him will plan on home hospice starting 12/13/18, plan for discharge home on that day (7) Fall: 12/[address] [facility] Reports no injuries not really participating with therapy, unsure how much rehab potential he has plan to go home on hospice (8) Anxiety: continued on home meds (9) Chronic kidney disease, stage 3a: Cr stable (10) Metabolic encephalopathy: unclear etiology, has severe Parkinson's at baseline no clear infection, recent h/o UTI and C diff colitis checked EEG due to severe shakes and tremors, just showed slowing continue supportive care has some waxing and waning so he might have some mild delirium continues to have good days and bad days his says this is typical, even at home (11) DVT prophylaxis: SCDs, Heparin for DVT proph Plan: home on hospice on Thursday (tomorrow), his is getting more support in place over the weekend No change in plan. Spent 25 minutes in management; Subjective Patient reports no new complaints. He is looking forward to go home on Thursday (patient unaware it will be on home hospice) Review of Systems Review of Systems: All systems reviewed & are unremarkable except as noted in HPI & below Physical Exam Physical Exam: Constitutional: WD/WN, vitals as above Eyes: PERRL, conjunctivae normal, anicteric sclerae ENMT: external ear and nose normal, oropharynx normal Neck: trachea midline, no thyromegaly Respiratory: normal respiratory effort, lungs clear to auscultation Cardiovascular: RRR, no murmur, no edema Gastrointestinal (Abdomen): normal bowel sounds, soft, nontender, no hepatosplenomegaly Musculoskeletal: no cyanosis or clubbing, extremities motor strength 5/5 Skin: no rashes, warm and dry Neurologic: patellar DTR's 2+ bilat, sensation intact and PERRL, EOMI, accommodation nl, no face palsy, no dysarthria Motor/Sensory: + tremor (most notable in right arm) Psychiatric: Orientation: alert and oriented to person; Motor Behavior: + tremor Lymphatic: no cervical or axillary lymphadenopathy Results & Data Vital Signs (Past 12 Hours) Vital Signs Temp Pulse Resp BP Pulse Ox 12/12/18 15:27 36.4 C L 79 16 162/68 H 99 PG Care Time/CCT Total # of Minutes Spent Total Time Spent with Patient: Total time spent is greater than 50% in coordination of care (as documented) at patient's floor/unit and/or counseling patient: (1) Fever Fever type: unspecified Qualified Code(s): R50.9 - Fever, unspecified (2) Hypertension Hypertension type: essential hypertension Qualified Code(s): I10 - Essential (primary) hypertension
[2018-12-13] MEDS: HEPARIN SOD 5,000 UNIT/0.5 ML VIAL SQ SCH (06:13)
[2018-12-13 06:51] LABS: Calcium 9.4 mg/dl (8.5-10.1); Creatinine Clr Calc Pharmacy 43.3 ml/min; Est GFR (African American) 67.4; Est GFR (Non-African American) 58.1
[2018-12-13] MEDS: AMLODIPINE BESYLATE 5 MG TAB PO SCH (09:32)
[2018-12-13] MEDS: LACTOBACILLUS ACIDOPHILUS (FLORANEX) TAB PO SCH ×2 (09:32→12:07)
[2018-12-13] MEDS: LOSARTAN POTASSIUM 50 MG TAB PO SCH (09:33)
[2018-12-13] MEDS: AMANTADINE HCL SYRUP 50 MG/5 ML UDP PO SCH (09:34)
[2018-12-13] MEDS: CARBIDOPA/LEVODOPA 25/100MG TAB PO SCH ×2 (09:34→13:28)
[2018-12-13] MEDS: CARBIDOPA/LEVODOPA 25/100MG EXT REL TAB PO SCH (09:34)
[2018-12-13] MEDS: ALPRAZolam 0.25 MG TABLET PO SCH (09:38)
--- NOTE | 2018-12-13 21:38 | Discharge Summary ---
Date of Service date of admission - December 05, 2018 date of discharge - December 13, 2018 Admission HPI Per Admitting Provider 83 y/o M who was transferred to the ED from [facility] for fevers and hallucinations. There was a midline placed on 12/04 for 1L IVF due to pt not taking PO. Paperwork with pt did not specify much more than this. I spoke with nursing at [facility] who was quite familiar with pt. She told me that pt started having fevers and hallucinations on Thursday. She states that he was "picking at the air" and calling out to them with concerns about seeing things that were clearly not there. This was new for pt. Labs were done and pt was noted to have an increased cr. They attempted to increase his PO fluids, however pt would not take further PO. On Thursday, they attempted to place an IV for IVF, however they were unable to obtain access, so a midline was placed. Pt did receive 1L IVF, but continued to have fevers and hallucinations. She states that pt was noted to have full body jerking and spasms and fell out of bed during the 7-11p shift last night without injury to himself. He has not been SOB or appearing in pain/complaining of pain. Pt was d/c on 11/15 from [facility] for UTI and cdiff. She states he completed all abx and has had no further diarrhea. She states he has been having one bowel movement daily now. He has had no complaints of nausea and there has been no emesis. She states that other than the hallucinations and the changes they have noticed, pt had no other complaints. His baseline speech and communication is limited, but she states they can communicate with him readily. Over the last few days this has declined and today they could not understand him. She states that he usually feeds himself breakfast and he did so on Thursday. His comes for lunch and helps him eat that meal, and she did so on Thursday. She states that pt has rapidly declined since Thursday. Unable to obtain full ROS due to pt's inability to communicate, but ROS as given by nursing above otherwise. Principal Diagnosis fever, uncertain etiology, but resolved and has not recurred Discharge Exam Constitutional + thin, + altered mental status and + frail appearing; no acute distress ENMT external ear and nose normal, oropharynx normal Respiratory normal respiratory effort, lungs clear to auscultation Cardiovascular Rate/Rhythm: regular rate and regular rhythm Heart Sounds: normal S1 and normal S2 Vessels: posterior tibial pulses present and dorsalis pedis pulses present; no JVD Extremities: no edema Gastrointestinal (Abdomen) normal bowel sounds, soft, nontender, no hepatosplenomegaly Inspection/Auscultation: + abdomen distended (mild) Rectal Exam: no rectal mass, no stool abnormal, no fecal impaction and no rectal tenderness Neurologic masked facies; rigidity of arms/legs Psychiatric Orientation: alert, oriented to person and oriented to place; + not oriented to time Discharge Data Allergies Allergy/AdvReac Type Severity Reaction Status Date / Time No Known Allergies Allergy Unverified 12/05/18 10:12 Consultations palliative care Ordered Studies 1. CT head - FINDINGS: No acute intracranial hemorrhage, midline shift, intracranial mass, hydrocephalus, territorial ischemia or abnormal extra-axial collection. Age- related involutional changes with ex vacuo ventriculomegaly. Patchy white matter hypodensities suggest chronic microvascular ischemic disease. Vertebral vascular calcifications are noted. The calvarium is intact. Mastoid air cells are clear. Mild mucosal thickening noted about the paranasal sinuses. No acute calvarial fracture. The orbits and soft tissues are unremarkable. IMPRESSION: 1. No acute intracranial abnormality. 2. Chronic findings as above. 2. EEG - no seizure spikes. 3. echocardiogram - normal EF, mild LVH, no wall motion abnormalities, mild MR. Hospital Course (1) Fever: Uncertain origin, reported prior to admission, associated with hallucinations and declining communication skills by history. no fever since admission after one dose of Vancomycin no clear source of infection C diff negative UA clear CXR without infiltrate blood cultures negative repeat CXR on 12/07 clear stopped Vancomycin 12/07, no fevers since in summary, no source of infection identified and fevers resolved viral etiology? (2) ARF (acute renal failure): Decreased PO intake at [facility] per patient's . Peak Cr was 1.8; improved to 1 prior to discharge. Likely due to dehydration/prerenal azotemia. per patient's , she was trying to get staff at [facility] to get him to drink/eat more discussed with her that this is due to his Parkinson's disease and probable dementia process from such (3) C. difficile colitis: Finished abx on 12/01/18 No further diarrhea per SNF nurse scant amount of diarrhea here re-tested for C diff, negative for gene (4) Hypertension: continue home meds, BP stable while here (5) TIA (transient ischemic attack): history of TIA CT head negative for acute changes (6) Parkinson's disease: continue home meds except reduced dose of Amantadine to 50mg BID from 100mg BID advised. reviewed consult from Dr. Hayward from prior hospital admission continue Sinemet could consider Nuplazid as outpatient but this requires prior auth long talk with on 12/07 and 12/09, discussed that likely his Parkinson's disease is end stage the issues present (dehydration, recurrent infections, altered mental status) stem back to Parkinson's patient made DNR during this stay palliative care was also consulted - agreeable to home with hospice (7) Fall: 12/04/18 at [facility] no injuries reported (8) Anxiety: continued on home meds (9) Chronic kidney disease, stage 3a: Cr stable at 1.1 (10) Metabolic encephalopathy: unclear etiology but likely due to a dementia process in the setting of baseline Parkinson's Disease no clear infection, recent h/o UTI and C diff colitis but both resolved checked EEG due to severe shakes and tremors, just showed slowing (encephalopathy) Total Time Total Time Spent Total Time Spent (In Minutes): 45 Total Time Includes: Examination of the Patient, Discharge Planning and Me dication Reconciliation Discharge Plan Discharge Items Patient Disposition: Hospice - Home Reason For Visit: fever Discharge Diagnosis: fever - cause uncertain but resolved. advanced parkinson's disease. Discharge Goals: Diagnostic testing and Therapeutic intervention Activity: Resume your previous activity Activity Comment: as desired/as tolerated Non-emergency contact: Primary Care Provider Call non-emergency contact if: you have any medication questions, your symptoms worsen, your pain is not controlled, your pain is worsening, your pain is unusual for you, your pain is concerning for you and your temperature is above 101 Diet: Regular Diet Texture: Pureed (blended smooth) Addtl Provider Instructions: You were admitted to the hospital after having had a fever and confusion. You had a mild fever upon arrival to the ER at [facility] but no fever since that time. The exact cause of the fever was uncertain. We repeated c. diff testing and this was negative. There was no evidence of blood stream infection, UTI, or pneumonia. Perhaps you had a fleeting summertime virus. Either way the fevers have not recurred. There was discussion about transitioning to hospice and at this time you are returning home with hospice services. The focus of hospice is treating your symptoms and trying to improve your quality of life in the setting of advanced parkinson's disease. If you have any questions, concerns, problems, or needs PLEASE CONTACT THE [facility]OS[facility]. PLACE THE HOSPICE NUMBER IN A GOOD SPOT AT YOUR HOME AND CONTACT THEM AT ANY TIME FOR ANY ISSUES. They will be able to address most of your needs right at your home. Recommendations - 1. apply steroid cream (triamcinolone cream) three times a day in thin amounts to the rash on your back; apply for about 1 week. 2. may use ondansetron 4mg every 6 hours as needed for nausea or vomiting. 3. for constipation - use [id number] miralax and/or senakot. 4. for pain - may use liquid morphine 5mg every 6 hours as needed. The morphine will likely cause constipation. 5. please DECREASE your amantadine to 50mg twice a day (from 100mg twice a day). All of your other medications are unchanged. Again, for any questions/concerns/problems/needs - please contact [facility]. Prescriptions: New morphine 20 mg/5 mL (4 mg/mL) solution 5 mg PO Q6H PRN (Reason: pain) Qty: 100 RF: 0 ondansetron 4 mg tablet,disintegrating 4 mg PO Q6H PRN (Reason: nausea and vomiting) Qty: 14 RF: 0 triamcinolone acetonide 0.1 % cream 1 appln TOP TID PRN (Reason: rash) Qty: 30 RF: 0 Continued ranitidine HCl 150 mg Tablet 150 mg PO BID RF: 0 alprazolam 0.25 mg tablet 0.25 mg PO BID RF: 0 losartan 50 mg Tablet 50 mg PO QAM RF: 0 carbidopa-levodopa 25-100 mg Tablet Extended Release 1 tab PO BID RF: 0 amlodipine 10 mg Tablet 10 mg PO QAM RF: 0 carbidopa-levodopa 25-100 mg Tablet 1 tab PO TID RF: 0 Changed amantadine HCl 100 mg Tablet 50 mg PO BID Qty: 60 RF: 2 Stand-Alone Forms: [facility], [facility] Discharge Orders: Discharge Order (Routine); Ordered 12/13/18 Ordered By: Jerel Gilmore Admission Data Admit Date/Time: 12/05/18 10:56 Attending Provider: Jerel Gilmore Admit Provider: Fara Castaneda Primary Care Provider: Alivia Tate Other Providers: Casie Boucher Service: Surgical Services Other Interventions: Discharge Summary Assessment (RN) Last Done: 12/13/18 11:49 Pending Studies at Discharge: No DC Date/Time DO NOT enter until pt leaves facility: 12/13/18 13:30
== END 2018-12-13 13:30 | disposition hospice, home (50) | DRG 682 ==
LOC: ED 08:41 → 2N 10:56 → SUATTDRO 10:56 → 2N 12:31 → 3N 12-07 15:10
DX: R50.9 Fever, unspecified; Z87.440 Personal history of urinary (tract) infections; Z86.73 Personal history of transient ischemic attack (TIA), and cerebral infarction without residual deficits; F41.9 Anxiety disorder, unspecified; N17.9 Acute kidney failure, unspecified; G93.41 Metabolic encephalopathy; Z51.5 Encounter for palliative care; I12.9 Hypertensive chronic kidney disease with stage 1 through stage 4 chronic kidney disease, or unspecified chronic kidney disease; G20 Parkinson's disease; N18.3 Chronic kidney disease, stage 3 (moderate); H35.30 Unspecified macular degeneration